=== PATIENT | male | born 1960 | race Caucasian/White ===

== ENCOUNTER → 2017-12-06 07:02 | Outpatient (CLI) | payer MEDICAID, SELFPAY ==
--- NOTE | 2017-12-06 10:21 | NEURO ---
NCS and/or EMG Patient Report Ordering Doctor: Bandar Haas DATE OF SERVICE: 12/06/17 This is a bilateral upper extremity nerve conduction study and a left upper extremity EMG performed on this 57-year-old male with numbness in his hands worse on the right side present for a year. The patient is a diabetic, his most recent hemoglobin A1c is 7.1 he says it is did run higher in the 11-12 range for several years. Reports a chronic right ulnar neuropathy due to an injury at the elbow. right lateral upper extremity nerve conduction study is performed demonstrating absence of the bilateral ulnar sensory responses, right ulnar Latuda and velocity as well as latency becomes severely abnormal across the elbow however this appears to be consistent with his old injury. On the left side there is mild decrease in conduction velocity across the elbow with preservation of amplitude but prolongation of distal latency. In motor and sensory responses are also abnormal bilaterally with moderately prolonged distal latencies and mild slowing of conduction velocities. The radial sensory responses are normal. The median and ulnar f wave responses are prolonged bilaterally. Left upper extremity EMG is performed. Muscles evaluated included the abductor pollicis brevis, first dorsal interosseous, brachioradialis, biceps, triceps, and deltoid muscles. Distal muscles demonstrated large motor units with early recruitment. More proximal muscles were normal. Pathologic spontaneous activity and abnormal insertional activity was absent. Impression this is an abnormal electrophysiologic study of the bilateral upper extremities consistent with both a moderate median neuropathy at the wrists, and bilateral ulnar neuropathy at the elbow, mild on the left, severe on the right however on the right side this appears to be chronic due to his remote injury. There is a superimposed length dependent peripheral neuropathy as well.
== END ==
PROVIDERS: Family Provider Nurse Practitioner; PCP Nurse Practitioner; Visit Provider Psychiatry & Neurology Neurology
DX: G62.9 Polyneuropathy, unspecified (principal); R20.0 Anesthesia of skin; R20.2 Paresthesia of skin
CPT/HCPCS: 95886; 95911

== ENCOUNTER → 2017-12-19 07:31 | Outpatient (CLI) | payer MEDICAID, SELFPAY ==
--- NOTE | 2017-12-19 10:31 | NEURO ---
NCS and/or EMG Patient Report Ordering Doctor: Bandar Haas DATE OF SERVICE: 12/19/17 this is a bilateral right lower extremity nerve conduction study performed for evaluation of bilateral lower extremity paresthesias in this 57 yr old male with a history of diabetes Right lower extremity nerve conduction studies performed as well as left lower extremity nerve conduction study. The sural sensory responses bilaterally are unobtainable. The motor responses from the bilateral common peroneal and tibial motor nerves demonstrate prolonged latencies, low amplitudes and low conduction velocities. Tibial and common peroneal F waves are prolonged and H reflex responses are reduced bilaterally. Impression this is an abnormal nerve conduction study of the bilateral lower extremities consistent with moderate to severe peripheral neuropathy.
== END ==
PROVIDERS: Family Provider Nurse Practitioner; PCP Nurse Practitioner; Visit Provider Psychiatry & Neurology Neurology
DX: G62.9 Polyneuropathy, unspecified (principal); R20.0 Anesthesia of skin; R20.2 Paresthesia of skin
CPT/HCPCS: 95910

== ENCOUNTER 2018-01-15 09:39 | Emergency (ER) | payer MEDICAID, SELFPAY ==
[2018-01-15 09:42] VITALS: BP 195/88; PULSE 74; RESP 16; TEMP 35.9; O2SAT 95; BMI 34.7
--- NOTE | 2018-01-15 09:54 | RAD_ITS ---
STUDY: X-RAY - RIGHT SHOULDER REASON FOR EXAM: Male, 58 years old. Pain after a fall TECHNIQUE: 5 view(s) of the shoulder. COMPARISON: None. FINDINGS: There is mild degenerative arthrosis of the glenohumeral articulation. There is degenerative arthrosis of the acromioclavicular joint without inferior osseous spur formation. Normal acromion. Normal humeral head and visualized proximal humerus. The soft tissue structures are unremarkable. Normal visualized pulmonary apex. RAD/Shoulder min 2 Views IMPRESSION: Degenerative arthrosis, no demonstrated fracture Electronically Signed: Mckay Cornelius MD at 10:58 EDT , Service support ,
--- NOTE | 2018-01-15 09:54 | RAD_ITS ---
STUDY: X-RAY - RIGHT KNEE REASON FOR EXAM: Male, 58 years old. Pain TECHNIQUE: 3 view(s) of the knee. COMPARISON: None. FINDINGS: The right knee has been previously replaced. Components demonstrate anatomic alignment. No plain film evidence of hardware complication or failure. No acute traumatic abnormality noted. RAD/Knee 3 Views IMPRESSION: Replaced right knee joint demonstrates anatomic alignment. No plain film evidence of hardware complication or acute traumatic abnormality Electronically Signed: Mckay Cornelius MD at 10:58 EDT , Service support ,
--- NOTE | 2018-01-15 10:14 | RAD_ITS ---
STUDY: X-RAY - RIGHT FEMUR REASON FOR STUDY: Male, 58 years old. Pain after a fall TECHNIQUE: Radiological exam, femur, minimum 2 views, 4 views obtained COMPARISON: None. FINDINGS: There is diffuse demineralization of the femur. Normal visualized soft tissue structure. Replaced right knee joint demonstrates anatomic alignment, no hardware complication. RAD/Femur Min 2 Views IMPRESSION: Demineralization of the osseous structures, no demonstrated fracture or suspicious osseous lesion. However, hip and pelvic fractures in patients of this age can be subtle, if there are strong clinical suspicion of a fracture, recommend further evaluation with cross-sectional imaging. Replaced right knee joint demonstrates anatomic alignment. No plain film evidence of hardware complication or failure Electronically Signed: Mckay Cornelius MD at 10:57 EDT , Service support ,
--- NOTE | 2018-01-15 11:11 | ED.DCSUM_ITS ---
- ER Visit Summary Date of Service: 01/15/18 Chief Complaint: [Fall] History of Present Illness: The patient is a 58 M [presents to the emergency department after sustaining a fall yesterday around 7 PM. Patient states that he was coming down the steps when he missed the step and fell to the bottom of the steps. Patient went down about 5 steps. Patient thinks his right knee twisted. Patient able to bear some weight but feels unsteady at times and feels like it is going to give out. Patient at times states the pain radiates towards his right hip. He denies any pain at the ankle. Patient denies striking his head or loss of consciousness. Patient denies any neck pain, chest pain, or abdominal pain. Patient denies any back pain. Patient does complain of some discomfort in his right shoulder as he thinks he hit his shoulder as well.] Physical Examination: [HEENT-PERRLA, EOMI. Cranial nerves II through XII grossly intact. TMs clear. Mucous membranes moist. No adenopathy. No C- spine tenderness on palpation. Cardiovascular-regular rate and rhythm without murmur or ectopy Lungs-clear to auscultation, chest wall stable without crepitus or subcu emphysema Abdomen-normoactive bowel sounds, soft, nontender, no rebound or rigidity, no peritoneal signs. Extremities-intact ?4, normal range of motion, normal pulses, atraumatic]. Right shoulder-patient has diffuse tenderness to palpation about the glenohumeral joint. He has good range of motion without deformity noted. Patient nervous intact distally. Right knee-no effusion noted. There is no ecchymosis or bruising. Ligamentous exam difficult secondary to pain. Patient does have some pain with flexion extension of the knee. Neurovascular intact distally. Test Results: [X-rays of the right shoulder obtained showed no fractures only degenerative changes. X-rays of the right knee showed no fractures and normal alignment of hardware. X-rays of the right femur show no fractures.] Emergency Department Course and Treatment: [Patient was given one [place] as well as crutches and a knee immobilizer] Treatment Plan: [Patient to follow-up with orthopedics traffic control flagger] Disposition: [Discharged home in stable condition] Impression: [Mechanical fall Contusion right shoulder Right knee sprain-possible internal derangement] This note was generated with Dragon dictation software. It may contain incorrect words, spelling, and punctuation that were not noted in review of the chart prior to signing ED Disposition - Plan for ED Patient: Chief Complaint: Fall Referrals: Nora Jack, KAYLYNN-C [Primary Care Provider] -
--- NOTE | 2018-01-15 11:11 | ED.DEP ---
ED Disposition - Plan for ED Patient: Chief Complaint: Fall Instructions: ED Mechanical Fall, ED Sprain Knee, ED Contusion Upper Ext Prescriptions: Hydrocodone Bitart/Apap 5-325 [Elizabeth 5/325] 1 - 2 tab PO Q4H PRN PRN 3 Days #12 tab PRN Reason: Pain Referrals: Nora Jack, KAYLYNN-C [Primary Care Provider] - Alfred Aguirre MD [STAFF PHYSICIAN] - 5-7 Days
--- NOTE | 2018-01-15 11:14 | DCINST.ED_ITS ---
ED Disposition - Plan for ED Patient: Chief Complaint: Fall Instructions: ED Mechanical Fall, ED Sprain Knee, ED Contusion Upper Ext Prescriptions: Hydrocodone Bitart/Apap 5-325 [Amorita 5/325] 1 - 2 tab PO Q4H PRN PRN 3 Days #12 tab PRN Reason: Pain Referrals: Nora Jack, KAYLYNN-C [Primary Care Provider] - Alfred Aguirre MD [STAFF PHYSICIAN] - 5-7 Days
[2018-01-15] MEDS: HYDROcodone Bitartrate/Apap 5/325 Tablet PO (11:28)
[2018-01-15 11:34] VITALS: BP 186/83; PULSE 66; RESP 18; O2SAT 95
== END 2018-01-15 11:35 | disposition home or self-care (01) ==
PROVIDERS: Emergency Provider Emergency Medicine; Family Provider Nurse Practitioner; PCP Nurse Practitioner
DX: S40.011A Contusion of right shoulder, initial encounter (principal); S83.91XA Sprain of unspecified site of right knee, initial encounter; W10.9XXA Fall (on) (from) unspecified stairs and steps, initial encounter; Y93.9 Activity, unspecified; Y92.89 Other specified places as the place of occurrence of the external cause; Y99.9 Unspecified external cause status; J44.9 Chronic obstructive pulmonary disease, unspecified; E11.9 Type 2 diabetes mellitus without complications; Z72.0 Tobacco use; Z86.718 Personal history of other venous thrombosis and embolism
CPT/HCPCS: 73030; 73552; 73562; 99284

== ENCOUNTER → 2018-04-14 15:27 | Outpatient (CLI) | payer MEDICAID, SELFPAY ==
[2018-04-14 15:49] LABS: Absolute Lymphocyte Count 2.89 X10^3/ul (0.83-4.51); Absolute Neutrophil Count 4.8 X10^3/uL (2.0-7.7); Basophil# 0.05 X10^3/uL; Basophil% 0.6 % (0-1); Eosinophil# 0.28 X10^3/uL; Eosinophils% 3.2 % (0-5); Hematocrit 45.7 % (40-54); Hemoglobin 15.5 g/dl (13.0-16.5); Lymphocyte # 2.89 X10^3/ul (4.0); Lymphocyte % 33.1 % (19-41); Mean Corp Hgb Conc 33.9 g/gl (32-36); Mean Corpuscular Hgb 30.2 pg (27.0-32.0); Mean Corpuscular Volume 89.1 fL (80-94); Mean Platelet Vol. 11.4 fl (6.2-12.0); Monocyte# 0.65 X10^3/uL; Monocyte% 7.5 % (0-10); Neutrophil # 4.76 X10^3/uL (2.7-7.7); Neutrophil % 54.6 % (47-70); Platelet Count 234 K/mm3 (150-450); RBC Distribution Width CV 14.7 % (11.6-14.6); RBC Distribution Width SD 47.8 fl (35.1-43.9); Red Blood Count 5.13 M/mm3 (4.6-6.2); White Blood Count 8.7 K/mm3 (4.4-11.0)
[2018-04-14 15:57] LABS: POSITIVE COUNT NO; POSITIVE DIFFERENTIAL NO; POSITIVE MORPHOLOGY NO
[2018-04-14 16:12] LABS: PSA,Total- Diagnostic 0.15 ng/mL (0.0-4.0)
== END ==
PROVIDERS: Family Provider Nurse Practitioner; PCP Nurse Practitioner; Visit Provider Nurse Practitioner
DX: E29.1 Testicular hypofunction (principal)
CPT/HCPCS: 84153; 84403; 85025

== ENCOUNTER → 2018-07-14 15:02 | Outpatient (CLI) | payer MEDICAID, SELFPAY ==
[2018-07-14 15:16] LABS: Absolute Neutrophil Count 4.5 X10^3/uL (2.0-7.7); Basophil# 0.06 X10^3/uL; Basophil% 0.6 % (0-1); Eosinophil# 0.49 X10^3/uL; Eosinophils% 4.5 % (0-5); Hematocrit 46.1 % (40-54); Hemoglobin 15.8 g/dl (13.0-16.5); Lymphocyte % 44.1 % (19-41); Mean Corp Hgb Conc 34.3 g/gl (32-36); Mean Corpuscular Hgb 30.8 pg (27.0-32.0); Mean Corpuscular Volume 89.9 fL (80-94); Mean Platelet Vol. 11.9 fl (6.2-12.0); Monocyte# 0.92 X10^3/uL; Monocyte% 8.5 % (0-10); Neutrophil # 4.46 X10^3/uL (2.7-7.7); Neutrophil % 40.9 % (47-70); Platelet Count 232 K/mm3 (150-450); RBC Distribution Width CV 13.7 % (11.6-14.6); RBC Distribution Width SD 44.6 fl (35.1-43.9); Red Blood Count 5.13 M/mm3 (4.6-6.2); White Blood Count 10.9 K/mm3 (4.4-11.0)
[2018-07-14 15:17] LABS: POSITIVE COUNT NO; POSITIVE DIFFERENTIAL NO; POSITIVE MORPHOLOGY NO
[2018-07-14 15:26] LABS: PSA,Total - Annual Screen 0.16 ng/mL (0.00-4.00)
== END ==
PROVIDERS: Family Provider Nurse Practitioner; PCP Nurse Practitioner; Referring Provider Nurse Practitioner; Visit Provider Nurse Practitioner
DX: E29.1 Testicular hypofunction (principal)
CPT/HCPCS: 84153; 84403; 85025; G0103

== ENCOUNTER → 2018-11-27 21:23 | Outpatient (CLI) | payer MEDICAID, SELFPAY ==
[2018-11-27 16:58] VITALS: BMI 34.6
[2018-11-27 22:06] LABS: Absolute Neutrophil Count 3.7 X10^3/uL (2.0-7.7); Basophil# 0.05 X10^3/uL; Basophil% 0.6 % (0-1); Eosinophil# 0.36 X10^3/uL; Eosinophils% 4.3 % (0-5); Hematocrit 45.8 % (40-54); Hemoglobin 15.2 g/dl (13.0-16.5); Lymphocyte % 39.8 % (19-41); Mean Corp Hgb Conc 33.2 g/gl (32-36); Mean Corpuscular Hgb 29.7 pg (27.0-32.0); Mean Corpuscular Volume 89.6 fL (80-94); Mean Platelet Vol. 11.7 fl (6.2-12.0); Monocyte# 0.75 X10^3/uL; Neutrophil # 3.74 X10^3/uL (2.7-7.7); Neutrophil % 45.2 % (47-70); POSITIVE COUNT NO; POSITIVE DIFFERENTIAL NO; POSITIVE MORPHOLOGY NO; Platelet Count 240 K/mm3 (150-450); RBC Distribution Width CV 13.7 % (11.6-14.6); RBC Distribution Width SD 44.8 fl (35.1-43.9); Red Blood Count 5.11 M/mm3 (4.6-6.2); White Blood Count 8.3 K/mm3 (4.4-11.0)
== END ==
PROVIDERS: Family Provider Nurse Practitioner; PCP Nurse Practitioner; Visit Provider Nurse Practitioner
DX: E11.65 Type 2 diabetes mellitus with hyperglycemia (principal); R35.0 Frequency of micturition
CPT/HCPCS: 85025

== ENCOUNTER → 2018-12-22 21:13 | Outpatient (CLI) | payer MEDICAID, SELFPAY ==
[2018-12-13 18:57] VITALS: BMI 35.2
[2018-12-22 21:22] LABS: Absolute Lymphocyte Count 4.82 X10^3/ul (0.83-4.51); Absolute Neutrophil Count 5.2 X10^3/uL (2.0-7.7); Basophil# 0.05 X10^3/uL; Basophil% 0.4 % (0-1); Eosinophil# 0.33 X10^3/uL; Eosinophils% 2.9 % (0-5); Hematocrit 46.7 % (40-54); Hemoglobin 15.6 g/dl (13.0-16.5); Lymphocyte # 4.82 X10^3/ul (4.0); Lymphocyte % 42.2 % (19-41); Mean Corp Hgb Conc 33.4 g/gl (32-36); Mean Corpuscular Hgb 30.1 pg (27.0-32.0); Mean Platelet Vol. 12.9 fl (6.2-12.0); Monocyte# 0.91 X10^3/uL; Neutrophil # 5.21 X10^3/uL (2.7-7.7); Neutrophil % 45.5 % (47-70); Platelet Count 207 K/mm3 (150-450); RBC Distribution Width CV 13.9 % (11.6-14.6); RBC Distribution Width SD 45.2 fl (35.1-43.9); Red Blood Count 5.19 M/mm3 (4.6-6.2); White Blood Count 11.4 K/mm3 (4.4-11.0)
[2018-12-22 21:27] LABS: POSITIVE COUNT NO; POSITIVE DIFFERENTIAL NO; POSITIVE MORPHOLOGY NO
[2018-12-22 21:37] LABS: PSA,Total- Diagnostic 0.21 ng/mL (0.0-4.0)
[2018-12-26 11:23] LABS: Testosterone Free 7.8 pg/mL (7.2-24.0)
== END ==
PROVIDERS: Family Provider Nurse Practitioner; PCP Nurse Practitioner; Referring Provider Nurse Practitioner; Visit Provider Nurse Practitioner
DX: E29.1 Testicular hypofunction (principal)
CPT/HCPCS: 84153; 84402; 85025

== ENCOUNTER 2019-03-07 02:54 | Emergency (ER) | payer MEDICAID, SELFPAY ==
[2019-02-25 17:52] VITALS: BMI 35.9
[2019-03-07 02:57] VITALS: BP 151/88; PULSE 73; RESP 16; TEMP 37; O2SAT 97; BMI 34.9
[2019-03-07 03:04] VITALS: BP 147/71
--- NOTE | 2019-03-07 03:11 | ED.VIS.GEN ---
History of Present Illness Chief Complaint: Wound Informant: Patient Narrative: Patient stated he has had some dry skin on his right blackwell and a chronic wound is well on his blackwell. It cracked open today. There is been some clear drainage. He has peripheral vascular disease peripheral neuropathy secondary to diabetes. He stated that the skin underneath that exposes burning. Comes in for cleaning of his wound. He is been using triple antibiotic ointment today. Has had a remote DVT. This region is on his blackwell however. Current severity is mild. No surrounding wound redness. No fevers or chills. - Past Medical History (1) Arthritis Status: Acute (2) Erectile dysfunction Status: Acute (3) Knee pain, left Status: Acute (4) Low testosterone in male Status: Acute (5) Osteoarthrosis, localized, primary, knee Status: Acute (6) Penetrating wound of left foot Status: Acute (7) Diabetes type 2, uncontrolled Status: Chronic (8) PAD (peripheral artery disease) Status: Chronic (9) Peripheral neuropathy Status: Chronic Past Medical History - Allergies and Home Meds Allergies/Adverse Reactions: Allergies canagliflozin [From Invokana] Allergy (Severe, Verified 03/07/19 02:59) FLU SYMPTOMS heparin Allergy (Verified 03/07/19 02:59) Unknown Primary Care Physician: Nora Jack NP-C [Primary Care Provider] - Prior records reviewed: Yes Surgical History: total knee arthroplasty Smoking Status: Current every day smoker Alcohol: None Drugs: None Review of Systems General: Denies: Chills, Fever, Sweats Eyes: Denies: Visual changes - bilaterally, Diplopia ENT: Denies: Rhinorrhea, Sore throat Cardiovascular: Denies: Chest pain, Palpitations Respiratory: Denies: Dyspnea, Cough, Dyspnea on exertion Gastrointestinal: Denies: Abdominal pain, Nausea, Vomiting, Diarrhea, Melena, Hematochezia Genitourinary: Denies: Dysuria, Hematuria, Frequency Musculoskeletal: Denies: Back pain, Extremity Pain Skin: Reports: Wounds - See HPI Neurological: Denies: Headache, Weakness, Numbness Physical Exam Vital Signs/Narrative: Vital Signs Temp Pulse Resp BP Pulse Ox 03/07/19 03:04 147/71 H 03/07/19 02:57 98.6 F 73 16 151/88 H 97 General: Well nourished, Well developed, No Acute Distress Head: Normocephalic, Atraumatic Eyes: Perrl, EOMI ENT: Moist mucous membranes, No rhinorrhea Neck: Supple, Nontender Cardiovascular: Regular rate, Regular rhythm, No murmurs Respiratory: No distress, CTA bilaterally, Chest nontender Abdomen: Soft, Nontender, Nondistended, Normal bowel sounds Back: Nontender, Normal Inspection Extremities: Nontender, No edema Skin: - - Patient has dry skin was peripheral distal blackwell. It is cracked open in a baseball sized fashion. He has multiple cracks that looks similar to a spiders web. There is no infection. There is no drainage. There is no cellulitis. He has a proximal dime sized wound which he stated he has had for years. He recently picked the scab off. There is mild irritation without infection or drainage.. Negative for: Normal color, No rash Neurological: Alert, Oriented x3, Cranial nerves II-XII grossly intact, Normal Strength, Normal Sensation Psychological: Normal affect, Normal Mood Diagnostic/Tx/Re-eval - Medical Decision Making Reassured. At this time there is no evidence of infection. They will continue triple antibiotic ointment. We did cleanse and dress the wound. I do not think he needs antibiotics. I do think he will likely need wound care and he is going to call them tomorrow for an appointment as he has peripheral vascular disease and I think that is why this opened up in the first place. ED Disposition - Plan for ED Patient: Disposition: Home or Assisted Living Diagnosis: Skin tear Instructions: Wound Care Referrals: Nora Jack NP-C [Primary Care Provider] - Additional Instructions: Please follow-up with the wound clinic
[2019-03-07 03:37] VITALS: BP 146/60; PULSE 78; RESP 18; O2SAT 98
== END 2019-03-07 03:38 | disposition home or self-care (01) ==
PROVIDERS: Emergency Provider Emergency Medicine; Family Provider Nurse Practitioner; PCP Nurse Practitioner
DX: S81.801A Unspecified open wound, right lower leg, initial encounter (principal); X58.XXXA Exposure to other specified factors, initial encounter; Y93.89 Activity, other specified; Y92.9 Unspecified place or not applicable; Y99.9 Unspecified external cause status; E11.51 Type 2 diabetes mellitus with diabetic peripheral angiopathy without gangrene; I73.9 Peripheral vascular disease, unspecified; Z88.8 Allergy status to other drugs, medicaments and biological substances; F17.200 Nicotine dependence, unspecified, uncomplicated
CPT/HCPCS: 99282

== ENCOUNTER → 2019-03-23 10:06 | Outpatient (CLI) | payer MEDICAID, SELFPAY ==
[2019-03-07 02:57] VITALS: BMI 34.9
[2019-03-23 10:37] LABS: Absolute Neutrophil Count 3.7 X10^3/uL (2.0-7.7); Basophil# 0.04 X10^3/uL; Basophil% 0.5 % (0-1); Eosinophil# 0.32 X10^3/uL; Eosinophils% 4.3 % (0-5); Hematocrit 45.6 % (40-54); Hemoglobin 15.4 g/dl (13.0-16.5); Lymphocyte % 36.1 % (19-41); Mean Corp Hgb Conc 33.8 g/gl (32-36); Mean Corpuscular Hgb 30.4 pg (27.0-32.0); Mean Corpuscular Volume 89.9 fL (80-94); Mean Platelet Vol. 11.4 fl (6.2-12.0); Monocyte# 0.59 X10^3/uL; Monocyte% 7.9 % (0-10); Neutrophil # 3.69 X10^3/uL (2.7-7.7); Neutrophil % 49.5 % (47-70); Platelet Count 215 K/mm3 (150-450); RBC Distribution Width CV 14.2 % (11.6-14.6); Red Blood Count 5.07 M/mm3 (4.6-6.2); White Blood Count 7.5 K/mm3 (4.4-11.0)
[2019-03-23 10:39] LABS: POSITIVE COUNT NO; POSITIVE DIFFERENTIAL NO; POSITIVE MORPHOLOGY NO
[2019-03-23 11:04] LABS: PSA,Total- Diagnostic 0.21 ng/mL (0.0-4.0)
[2019-03-25 12:51] LABS: Testosterone Free 15.2 pg/mL (7.2-24.0)
== END ==
PROVIDERS: Family Provider Nurse Practitioner; PCP Nurse Practitioner; Referring Provider Nurse Practitioner; Visit Provider Nurse Practitioner
DX: E29.1 Testicular hypofunction (principal)
CPT/HCPCS: 36415; 84153; 84402; 85025

== ENCOUNTER → 2019-08-23 09:24 | Outpatient (CLI) | payer MEDICAID, SELFPAY ==
[2019-08-12 21:47] VITALS: BMI 35.8
[2019-08-23 10:40] LABS: Hemoglobin A1c 8.6 % (4.2-6.3)
[2019-08-23 10:47] LABS: AST(SGOT) 13 U/L (15-37); Alanine Aminotransfer ALT/SGPT 36 U/L (16-61); Albumin, Serum 3.7 g/dL (3.2-5.0); Alkaline Phosphatase 91 U/L (45-117); Anion Gap 8 (5-15); BUN 13 mg/dL (7-18); BUN/Creat Ratio 15.2 RATIO (10-20); Chloride 106 mmol/L (98-107); Cholesterol 141 mg/dL (200); Creatinine, Serum 0.85 mg/dL (0.70-1.30); EST Glomerular Filtration Rate 98 mL/min (>60); Est Glom Filt Rate - Afr Amer 118 mL/min (>60); Globulin 3.7 g/dL (2.2-4.2); Glucose 183 mg/dL (74-106); High Density Lipoprotein 35 mg/dL; PSA,Total - Annual Screen 0.14 ng/mL (0.00-4.00); Potassium 4.1 mmol/L (3.5-5.1); Protein, Total 7.4 g/dL (6.4-8.2); Sodium Level 139 mmol/L (136-145); Triglycerides 150 mg/dL; Very Low Density Lipoprotein 30 mg/dL (5-40)
== END ==
PROVIDERS: Family Provider Nurse Practitioner; PCP Nurse Practitioner; Referring Provider Nurse Practitioner; Visit Provider Nurse Practitioner
DX: E11.65 Type 2 diabetes mellitus with hyperglycemia (principal); N52.9 Male erectile dysfunction, unspecified; Z12.5 Encounter for screening for malignant neoplasm of prostate
CPT/HCPCS: 36415; 80053; 80061; 83036; 84153; G0103

== ENCOUNTER → 2020-03-05 20:15 | Outpatient (CLI) | payer MEDICAID, SELFPAY ==
[2020-03-05 16:23] VITALS: BMI 36.8
== END ==
PROVIDERS: PCP Nurse Practitioner; Visit Provider Nurse Practitioner
DX: E11.621 Type 2 diabetes mellitus with foot ulcer (principal); L97.519 Non-pressure chronic ulcer of other part of right foot with unspecified severity
CPT/HCPCS: 87070; 87075; 87077; 87186; 87205

== ENCOUNTER 2020-04-18 02:44 | Observation (INO) | payer MEDICAID, SELFPAY ==
[2020-03-12 15:20] VITALS: BMI 37.0
[2020-04-18] VITALS (14 sets, daily range): BP systolic 99–187; BP diastolic 53–91; PULSE 55–78; RESP 15–19; TEMP 36.3–37.1; O2SAT 94–99; BMI 36.6; BMI 36.1
--- NOTE | 2020-04-18 02:54 | RAD_ITS ---
STUDY: X-RAY CHEST REASON FOR EXAM: Male, 60 years old. Shortness of breath TECHNIQUE: Single AP portable view of the chest. COMPARISON: None. FINDINGS: Patchy airspace infiltration at bilateral lung bases, left greater than right. No pleural effusion or pneumothorax. Normal size heart. Normal mediastinum and clyde. Normal visualized pulmonary arteries. Normal visualized aortic arch and descending thoracic aorta. Normal visualized thoracic spine. Normal visualized ribs, clavicles, and shoulders. There is no demonstrated abnormality of the visualized soft tissue structures of the upper abdomen. RAD/Chest 1 View (Portable) IMPRESSION: Bibasilar atelectasis versus infiltrate, left greater than right. Electronically Signed: Zaid Vásquez MD at 4:13 EDT Tel , Service support ,
--- NOTE | 2020-04-18 02:54 | EKG12_ITS ---
Test Reason : ADMISSION EKG Blood Pressure : / mmHG Vent. Rate : 064 BPM Atrial Rate : 064 BPM P-R Int : 236 ms QRS Dur : 096 ms QT Int : 380 ms P-R-T Axes : 037 -15 028 degrees QTc Int : 392 ms Sinus rhythm with 1st degree A-V block Inferior infarct , age undetermined Abnormal ECG When compared with ECG of 18-APR-2020 02:58, MANUAL COMPARISON REQUIRED, DATA IS UNCONFIRMED Confirmed by VIVIAN OCHOA, JEFE ([id number]), script editor KIKI PERALTA ([id number]) on 04/23/2020 3:59:19 PM Referred By: DR LANE Confirmed By:JEFE PARK MD
--- NOTE | 2020-04-18 02:55 | CT_ITS ---
STUDY: CTA CHEST REASON FOR EXAM: Male, 60 years old. Chest tightness RADIATION DOSAGE (If Supplied By Facility): CTDIvol = ( 13.85 ) mGy, DLP = ( 554.50 ) mGycm TECHNIQUE: The examination was performed with the intravenous administration of Isovue 370 100ml. Post-processing of the angiographic images was performed, with multiplanar reformation and 3D reconstruction. Individualized dose optimization techniques were used for this CT. COMPARISON: None FINDINGS: Normal enhancement of the main pulmonary artery and right and left pulmonary arteries. Normal enhancement of the bilateral peripheral pulmonary arteries. There is no demonstrated pulmonary embolism. Thoracic aorta demonstrates no aneurysmal dilatation or dissection. Normal heart and pericardium. Normal mediastinum. Normal hilar regions. Normal visualized trachea and bronchi. The lungs are well expanded. No confluent airspace infiltrate. 6 mm pleural-based nodule within the superior segment right lower lobe abutting the major fissure. Minimal dependent atelectasis versus scar formation at bilateral posterior lung bases. No pleural effusion or pneumothorax. Normal chest wall structures. Mild multilevel degenerative change of the spine. The visualized portions of the upper abdomen demonstrate hypoattenuated lesion within the left upper renal pole measuring near water density. CT/CTA Chest W/WO Contrast IMPRESSION: 1. No acute pulmonary embolism. 2. 6 mm pleural-based nodule within the superior segment right lower lobe. 3. Simple appearing left upper renal pole cyst. Electronically Signed: Zaid Vásquez MD at 4:52 EDT Tel , Service support ,
--- NOTE | 2020-04-18 02:56 | RAD_ITS ---
STUDY: X-RAY - RIGHT FOOT CLINICAL: Male, 60 years old. Plantar ulcer of the right foot TECHNIQUE: 3 view(s) of the foot. COMPARISON: None. FINDINGS: There is a small plantar calcaneal spur. Senescent change of the calcaneal tendon insertion. Mild degenerative change of the subtalar, talonavicular and tarsometatarsal joints. Normal metatarsi. Mild degenerative change of the first metatarsophalangeal joint. Normal tibial and fibular sesamoid bones. Normal interphalangeal joint of the great toe. Normal phalanges of the great toe. Normal second through fifth metatarsophalangeal joints. Normal interphalangeal joints and phalanges of the lesser toes. Soft tissue ulceration overlying the plantar aspect. No adjacent bony decortication RAD/Foot min 3 Views IMPRESSION: 1. Soft tissue ulceration overlying the right aspect of the metatarsal heads with bony abnormality 2. Multifocal osteoarthritic change Electronically Signed: Zaid Vásquez MD at 4:12 EDT Tel , Service support ,
--- NOTE | 2020-04-18 02:57 | ED.DCSUM_ITS ---
History of Present Illness Chief Complaint: Edema Informant: Patient Narrative: Patient presents with lower extremity edema and redness as well as chest tightness. The lower extremity has been infected for over a month he has been on antibiotics but now it is getting more swollen and more red. He has no fever or chills. He does have 2 ulcers on his foot. The chest pain and tightness started tonight, he is not anticoagulated but has had a history of PE in the past. He has no radiation of the pain he has no back pain or tearing sensation he has no pleuritic component. Past Medical History - Allergies and Home Meds Allergies/Adverse Reactions: Allergies canagliflozin [From Invokana] Allergy (Severe, Verified 04/18/20 02:52) FLU SYMPTOMS heparin Allergy (Verified 04/18/20 02:52) Unknown Primary Care Physician: Nora Jack NP-C [Primary Care Provider] - Past Medical History: - - History of hypertension, diabetes, history of PE Surgical History: total knee arthroplasty Smoking Status: Current every day smoker Review of Systems All systems negative except as indicated General: Denies: Fever Eyes: Denies: Visual changes - bilaterally ENT: Denies: Rhinorrhea, Sore throat Cardiovascular: Reports: Chest pain. Denies: Palpitations Respiratory: Reports: Dyspnea. Denies: Cough, Sputum Gastrointestinal: Denies: Abdominal pain, Nausea, Vomiting Genitourinary: Denies: Dysuria Musculoskeletal: Reports: - - Lower extremity infection Skin: Reports: Rash, Wounds Neurological: Denies: Weakness, Parasthesia Endocrine: Denies: Polyuria, Polydipsia Hematologic: Denies: Easy bruising Allergy: Denies: Uticaria Physical Exam Vital Signs/Narrative: Vital Signs Temp Pulse Resp BP Pulse Ox 04/18/20 02:54 98.7 F 78 19 H 187/75 H 99 04/18/20 02:46 98.3 F 77 16 187/75 H 99 General: Well nourished, Well developed Eyes: Perrl ENT: Moist mucous membranes, No rhinorrhea Neck: Supple, Nontender Cardiovascular: Regular rate, Regular rhythm Respiratory: - - He is speaking in full sentences he has no respiratory distress he has coarse bilateral breath sounds. Abdomen: Soft, Nontender Back: Nontender, Normal Inspection Extremities: - - He does have right lower extremity edema, he has a wound ulcer in his great toe and plantar region, no crepitus, he has slight erythema and slight calor. Skin: - - Cellulitis as above Neurological: Normal Strength, Normal Sensation Diagnostic/Tx/Re-eval - Medical Decision Making Patient has no evidence of PE however he will need repeat cardiac enzymes and further investigation into his chest pain, he also has right lower extremity cellulitis with a quite elevated CRP and I am worried about early osteomyelitis. I started antibiotics. Patient will need admission. ED Disposition - Plan for ED Patient: Diagnosis: Foot infection, Chest pain Referrals: Nora Jack, [employer] OWNER-C [Primary Care Provider] -
[2020-04-18 03:45] LABS: ALB/GLOB Ratio 0.8 RATIO (0.9-2.4); AST(SGOT) 12 U/L (15-37); Alanine Aminotransfer ALT/SGPT 28 U/L (16-61); Albumin, Serum 3.5 g/dL (3.2-5.0); Alkaline Phosphatase 88 U/L (45-117); Anion Gap 2 (5-15); BUN 13 mg/dL (7-18); Calcium,Total 8.4 mg/dL (8.5-10.1); Chloride 104 mmol/L (98-107); Creatinine, Serum 0.87 mg/dL (0.70-1.30); EST Glomerular Filtration Rate 95 mL/min (>60); Est Glom Filt Rate - Afr Amer 116 mL/min (>60); Estimated Creatinine Clearance 107.92 ml/min; Globulin 4.4 g/dL (2.2-4.2); Glucose 144 mg/dL (74-106); Potassium 3.6 mmol/L (3.5-5.1); Protein, Total 7.9 g/dL (6.4-8.2); Sodium Level 136 mmol/L (136-145)
[2020-04-18 03:50] LABS: Absolute Lymphocyte Count 3.54 X10^3/uL (0.83-4.51); Absolute Neutrophil Count 5.9 X10^3/uL (2.0-7.7); Basophil# 0.07 X10^3/uL; Basophil% 0.6 % (0-1); Eosinophil# 0.36 X10^3/uL; Eosinophils% 3.3 % (0-5); Hematocrit 43.7 % (40-54); Hemoglobin 14.3 g/dL (13.0-16.5); Lymphocyte # 3.54 X10^3/ul (4.0); Lymphocyte % 32.3 % (19-41); Mean Corp Hgb Conc 32.7 g/dL (32-36); Mean Corpuscular Hgb 29.9 pg (27.0-32.0); Mean Corpuscular Volume 91.4 fL (80-94); Mean Platelet Vol. 11.1 fl (6.2-12.0); Monocyte# 0.93 X10^3/uL; Monocyte% 8.5 % (0-10); NRBC Flagged by Analyzer 0 % (0-5); Neutrophil # 5.91 X10^3/uL (2.7-7.7); Neutrophil % 53.8 % (47-70); Platelet Count 231 K/mm3 (150-450); RBC Distribution Width CV 13.5 % (11.6-14.6); RBC Distribution Width SD 46.2 fl (35.1-43.9); Red Blood Count 4.78 M/mm3 (4.6-6.2)
[2020-04-18 03:57] LABS: Erythrocyte Sedimentation Rate 22 mm/hr (0-20)
[2020-04-18 04:37] LABS: Probe Check PASS; Specimen Processing Control PASS
--- NOTE | 2020-04-18 05:04 | HP.PCM_ITS ---
History of Present Illness Date of Admission: 04/18/20 Chief Complaint: chest pain, left leg pain and swelling The patient is a 60 year old M with a past medical history as outlined which includes type 2 diabetes mellitus, hyperlipidemia and a history of PE after right knee surgery in 2004 as well as arthritis and COPD. He was admitted through the ED on 04/18/2020 with a complaint of chest pain and left lower extremity redness and pain and swelling. Chest pain started 1 night before admission he said he was pressure-like like someone sitting on his chest, with no aggravating or relieving factors. He had not had chest pain like this before. He denied any associated lightheadedness or dizziness, palpitations or shortness of breath. Review of systems otherwise negative. He also said he had been managed for cellulitis of his left lower extremity with oral antibiotics on outpatient basis after he picked at a callus on his foot and it became infected. He has neuropathy due to type 2 diabetes mellitus and states he does not feel anything when he picks at his leg. He completed a one-week course of antibiotics and says he is yet to follow-up with his doctor at the wound clinic. He was able to start his leg is still swollen and red and painful. He denied any fever or chills. Review of systems otherwise negative. In the ED, vitals showed temperature of 98.8 Fahrenheit with blood pressure of 120/62, pulse rate of 61 and respiratory rate of 17. He was saturating at 98% on room air. Chemi stry showed sodium of 136 with potassium of 3.6, and creatinine of 0.87. Initial troponin was negative. CBC showed hemoglobin of 14.3 with WBC of 11 and platelets of 231. COVID-19 test was negative and CTA of the chest showed no acute PE but showed a 6 mm pleural-based nodule within the superior segment of the right lower lobe as well as simple appearing left upper renal pole cyst. Chest x-ray showed bibasilar atelectasis versus infiltrate greater on the left than the right. Foot x-ray showed soft tissue ulceration overlying the right aspect of the metatarsal heads with bony abnormality and multifocal osteoarthritic change. He has been admitted to be managed for chest pain rule out ACS and cellulitis of the left lower extremity [] Past Medical History Past Medical History (Chronic Problems): Chronic Problems (Last Reviewed 05/19/20 @ 18:20 by Nora Jack NP-C) PAD (peripheral artery disease) (Chronic) Peripheral neuropathy (Chronic) Diabetes type 2, uncontrolled (Chronic) Medical History: Medical History (Last Reviewed 02/04/20 @ 18:20 by Nora Jack NP-Nancy) Arthritis of left shoulder region M19.012 COPD (chronic obstructive pulmonary disease) J44.9 Diabetes type 2, uncontrolled E11.65 Hyperlipidemia LDL goal <130 E78.5 Osteoarthritis of left knee M17.12 Pulmonary embolism I26.99 after R knee surgery Allergies canagliflozin [From Invokana] Allergy (Severe, Verified 04/18/20 02:52) FLU SYMPTOMS heparin Allergy (Verified 04/18/20 02:52) Unknown Home Medications: Ambulatory Orders Medication Instructions Recorded gabapentin 800 mg tablet 800 mg PO BID 30 Days #60 tab 10/21/19 insulin glargine 100 unit/mL (3 65 unit SC DAILY 30 Days #19.5 ml 10/21/19 mL) subcutaneous pen metformin 1,000 mg tablet 1,000 mg PO BID #60 tab 10/21/19 tramadol 50 mg tablet 100 mg PO Q8H PRN #180 tab 11/20/19 pen needle, diabetic 32 gauge x See Rx Instructions .ROUTE 02/04/20 5/32 .MEDSUPPLY #90 ea pioglitazone 45 mg tablet 45 mg PO DAILY #30 tab 02/04/20 Surgical History: Surgical History (Last Reviewed 08/12/19 @ 21:51 by VICTORIA Vargas) Knee arthropathy M17.10 R elbow nerves cut happened 21 years ago and R little finger is numb Status post right knee replacement Z96.651 Surgical History: total knee arthroplasty Smoking Status: Current every day smoker Review of Systems Constitutional: Denies: Chills, Fever, Malaise, Weight Change Eyes: Denies: Blurred vision HEENT: Denies: Head Aches, Sinus Congestion, Sinus Drainage Cardiovascular: Reports: Chest Pain, Chest Pressure. Denies: Chest Tightness, Edema, Heaviness, Light Headedness, Orthopnea, Palpitations, Paroxysmal Noc. Dyspnea, Syncope Respiratory: Reports: Shortness of Breath. Denies: Cough, Shortness of breath at rest, Shortness of breath upon exertion, Sputum production Gastrointestinal: Denies: Abdominal Pain, Nausea, Vomiting Genitourinary: Denies: Dysuria Musculoskeletal: Reports: Leg Pain. Denies: Joint Pain, Joint Tenderness Skin: Reports: Wounds. Denies: Rash Neurological: Denies: Numbness, Tingling, Focal weakness Psychiatric: Denies: Anxiety, Depression, Homicidal Ideations, Suicidal Ideations Hematologic/ Lymphatic: Denies: Easy Bruising, Easy Bleeding VTE Information - Inpt Only VTE Present on Admission: No VTE Pharm Prophylaxis ordered?: Yes Patient Problems: Active and Suspected Problems (Last Reviewed 02/04/20 @ 18:20 by VICTORIA Vargas) Foot infection (Acute) Chest pain (Acute) - Physical Exam Vitals/I&O's: Vital Signs Temp Pulse Resp BP Pulse Ox 98.6 F 66 16 167/63 H 97 04/18/20 04:00 04/18/20 04:00 04/18/20 04:00 04/18/20 04:00 04/18/20 04:00 Oxygen Delivery Method Room Air Weight: 293 lb 6.964 oz Body Mass Index (BMI) 36.6 General: Alert, Oriented x3, Cooperative, No apparent distress HEENT: Atraumatic, PERRLA, EOMI, Normocephalic Oral: Moist Mucosa Neck: Supple, No JVD, Negative Carotid Bruits Lungs: Clear to auscultation, Normal air movement, No rhonchi, No wheeze, No rales Cardiovascular: Regular rate, Regular Rhythm, Normal S1, Normal S2, No murmurs Abdomen: Bowel Sounds Present, Soft, Non Tender, Non-Distended, No Hepato- splenomegaly Extremities: No clubbing, No cyanosis, Capillary Refill Less than 3 Seconds, - - minimal 1+ edema of LLE Skin: - - has mild erythema and differential warmth of LLE, with ulceration of the base of the first metatarsal, and over the lateral aspect of foot; no visible discharge. Musculoskeletal: No Tenderness to Palpation of Joints or Extremities Lymphatic: No Cervical, Supraclavicular, or Inguinal Adenopathy Neurological: Cranial nerves II-XII grossly intact, Neuro grossly intact, Motor Exam 5/5 strength throughout Psych/Mental Status: Normal Affect, Appropriate, Alert and oriented to time, place, person, mood and affect Laboratory Results 04/18/20 03:05: WBC 11.0, RBC 4.78, Hgb 14.3, Hct 43.7, MCV 91.4, MCH 29.9, MCHC 32.7, RDW Std Deviation 46.2 H, RDW Coeff of Sami 13.5, Plt Count 231, MPV 11.1, Immature Gran % (Auto) 1.500 H, Neut % (Auto) 53.8, Lymph % (Auto) 32.3, [place] % (Auto) 8.5, Eos % (Auto) 3.3, Baso % (Auto) 0.6, Absolute Neuts (auto) 5.9, Absolute Lymphs (auto) 3.54, Nucleated RBC % 0, ESR 22 H 04/18/20 03:05: Sodium 136, Potassium 3.6, Chloride 104, Carbon Dioxide 30.0, Anion Gap 2 L, BUN 13, Creatinine 0.87, Estim Creat Clear Calc 107.92, Est GFR (MDRD) Af Amer 116, Est GFR (MDRD) Non-Af 95, BUN/Creatinine Ratio 15.0, Glucose 144 H, Calcium 8.4 L, Total Bilirubin 0.30, AST 12 L, ALT 28, Alkaline Phosphatase 88, Troponin I < 0.015, C-React Prot Ext Range 17.30 H, Total Protein 7.9, Albumin 3.5, Globulin 4.4 H, Albumin/Globulin Ratio 0.8 L 04/18/20 03:06: COVID-19 (YOLANDA) Not Detected Diagnostic Data Chest X-Ray 04/18/20 02:54 IMPRESSION: Bibasilar atelectasis versus infiltrate, left greater than right. Electronically Signed: Zaid Vásquez MD at 4:13 EDT Tel , Service support , Chest CTA 04/18/20 02:55 IMPRESSION: 1. No acute pulmonary embolism. 2. 6 mm pleural-based nodule within the superior segment right lower lobe. 3. Simple appearing left upper renal pole cyst. Electronically Signed: Zaid Vásquez MD at 4:52 EDT Tel , Service support , Foot X-Ray 04/18/20 02:56 IMPRESSION: 1. Soft tissue ulceration overlying the right aspect of the metatarsal heads with bony abnormality 2. Multifocal osteoarthritic change Electronically Signed: Zaid Vásquez MD at 4:12 EDT Tel , Service support , Assessment/Plan All Active Problems (Last Reviewed 02/04/20 @ 18:20 by Nora Jack, KAYLYNN-C) Foot infection (Acute) Chest pain (Acute) Staph aureus infection (Acute) Cellulitis (Acute) Swelling of right lower extremity (Acute) Ulcer of right foot due to type 2 diabetes mellitus (Acute) Left knee pain (Acute) Wellness examination (Acute) Osteoarthritis, multiple sites (Acute) Erectile dysfunction (Acute) Low testosterone in male (Acute) Arthritis (Acute) Osteoarthrosis, localized, primary, knee (Acute) Knee pain, left (Acute) Penetrating wound of left foot (Acute) 60 y/o admitted with a complaint of chest pain, and left foot swelling, pain and redness 1. Chest pain, to r/o ACS * Admit to PCU with telemetry.\ * Initial troponin is negative. EKG shows no acute ST changes. * Cycle troponins x3. P.o. aspirin 81 mg daily. Sublingual nitroglycerin as needed. * For stress test if troponins are negative. * 2. Diabetic foot ulcer with LLE cellulitis * States he is taking antibiotics for about a week as prescribed by his PCP. * X-ray of the foot showed soft tissue ulceration overlying the right aspect of the metatarsal head with bony abnormality and multifocal osteoarthritic changes. * CBC shows WBC of 11. Consult podiatry. Patient may need MRI of the foot but will defer to podiatry. * Started on IV clindamycin in ED;. will continue * 3. Type 2 diabetes mellitus with peripheral neuropathy * On metformin thousand milligrams twice daily and p.o. glitazone 45 mg daily nad lantus 65IU daily * Insulin sliding scale. Accu-Cheks AC at bedtime. * * DVT prophylaxis: Lovenox CODE STATUS: Full code * Patient counseled extensively about different types of CODE STATUS including full code, DNR CCA and DNR CCA. Patient elects to be full code. * Total [id number] time 16 minutes. OBSV E&M: 65432 Initial observation care L3 Procedures: 90579 Advncd Care Plan 30 Min
--- NOTE | 2020-04-18 06:16 | EKG12_ITS ---
Test Reason : DYSRHYTHMIA Blood Pressure : / mmHG Vent. Rate : 074 BPM Atrial Rate : 074 BPM P-R Int : 232 ms QRS Dur : 094 ms QT Int : 368 ms P-R-T Axes : 053 -14 028 degrees QTc Int : 408 ms Sinus rhythm with 1st degree A-V block with frequent Premature ventricular complexes Inferior infarct , age undetermined Abnormal ECG Confirmed by JEFE PARK MD ([id number]), continuity editor DONN BURNS ([id number]) on 04/21/2020 8:43:19 AM Referred By: PC Confirmed By:JEFE PARK MD
[2020-04-18 06:50] LABS: Bedside Glucose 103 mg/dL (70-110)
[2020-04-18] MEDS: traMADol 50 MG Tablet 100 MG PO ×2 (06:56→20:43)
[2020-04-18] MEDS: 0.9% Saline Lock 10 ML Syringe IV ×3 (07:07→21:02)
--- NOTE | 2020-04-18 07:34 | CON.PCM_ITS ---
Problem List (1) Ulcer of right foot with fat layer exposed Status: Chronic (2) Cellulitis of right foot Status: Acute (3) Claudication Status: Suspected (4) Type 2 diabetes mellitus with diabetic polyneuropathy Status: Chronic Reason for Consult Date of Consultation: 04/18/20 Reason for Consultation: right foot ulcers with infection History of Present Illness: The patient is a 60 year old M was seen bedside this morning for right foot ulcer. He is admitted for chest pain and lower extremity cellulitis. He relates the onset of his right foot ulcers approximately 1 month ago and he has been seeing his primary care physician in the outpatient setting, Nora Jack. He was started on oral antibiotics and has been doing well with serial debridements and localized wound care plan. He denies recent trauma. He denies odor or purulent drainage from the foot. He does report some swelling of the lower extremities and some mild discomfort on the right. He also has a prior history of foot ulcers from several years ago. He reports claudication after walking a half of the block. He has rest burning and lack of sensation consistent with neuropathy. He has been working with his primary care provider on better controlling his glucose levels. Past Medical History Past Medical History (Chronic Problems): Chronic Problems (Last Reviewed 02/04/20 @ 18:20 by VICTORIA Vargas) Ulcer of right foot with fat layer exposed (Chronic) Type 2 diabetes mellitus with diabetic polyneuropathy (Chronic) PAD (peripheral artery disease) (Chronic) Peripheral neuropathy (Chronic) Diabetes type 2, uncontrolled (Chronic) Medical History: Medical History (Last Reviewed 02/04/20 @ 18:20 by VICTORIA Vargas) Arthritis of left shoulder region M19.012 COPD (chronic obstructive pulmonary disease) J44.9 Diabetes type 2, uncontrolled E11.65 Hyperlipidemia LDL goal <130 E78.5 Osteoarthritis of left knee M17.12 Pulmonary embolism I26.99 after R knee surgery Allergies canagliflozin [From Invokana] Allergy (Severe, Verified 04/18/20 02:52) FLU SYMPTOMS heparin Allergy (Verified 04/18/20 02:52) Unknown Home Medications: Ambulatory Orders Medication Instructions Recorded tramadol 50 mg tablet 100 mg PO Q8H PRN #180 tab 11/20/19 Gabapentin 800 mg PO BID 04/18/20 Insulin Glargine,Hum.rec.anlog 65 unit SUBCUT DAILY 04/18/20 [Lantus Solostar U-100 Insulin] Metformin HCl 1,000 mg PO BID 04/18/20 Pioglitazone HCl 45 mg PO DAILY 04/18/20 Surgical History: Surgical History (Last Reviewed 08/12/19 @ 21:51 by ZOEY VargasC) Knee arthropathy M17.10 R elbow nerves cut happened 21 years ago and R little finger is numb Status post right knee replacement Z96.651 Surgical History: total knee arthroplasty Smoking Status: Current every day smoker Patient Problems: Active and Suspected Problems (Last Reviewed 02/04/20 @ 18:20 by Nora Jack NP-C) Foot infection (Acute) Chest pain (Acute) Cellulitis of right foot (Acute) Claudication (Suspected) - Physical Exam Vitals/I&O's: Vital Signs Temp Pulse Resp BP Pulse Ox 98.3 F 62 17 185/91 H 98 04/18/20 05:56 04/18/20 06:29 04/18/20 05:56 04/18/20 05:56 04/18/20 05:56 Oxygen Delivery Method Room Air Weight: 131.1 kg Body Mass Index (BMI) 36.1 Intake and Output for Last 24 Hours 04/16/20 04/17/20 04/18/20 23:59 23:59 23:59 Intake Total 54 / 54 Balance 54 / 54 General: Alert, Oriented x3, Cooperative HEENT: Atraumatic Extremities: No cyanosis, Capillary Refill Less than 3 Seconds - All digits bilateral, No Calf Tenderness - Negative Bridget and Muñiz sign bilateral, Diminished Peripheral Pulses - 2 out of 4 PT pulses 104 DP right and 2 out of 4 DP left, Edema - Bilateral lower extremity edema and varicosities, - - Active range of motion digits x10 and ankles within normal limits Skin: Ulcer/ Wound - Plantar medial first metatarsal head ulcer and plantar lat eral foot proximal to the metatarsal heads with granular and fibrous base with some peripheral callus noted only to the medial ulcer. There is no exposed deep tissue, necrosis, maceration, purulence on expression odor erythema or streaking noted on physical exam this morning. The plantar medial first metatarsal head ulcer pre-debridement measurement was 1.2 x 0.6 x 0.1 cm and post debridement 1. 4 x 0.7 x 0.1 cm. The plantar lateral foot ulcer pre-debridement measurement was 1.4 x 2.4 x 0.1 cm and post debridement 1.5 x 2.5 x 0.1 cm. Hematogenous drainage only was noted. The adjacent skin is hairless, atrophic, and dry. There is no other ulcer or fissures., - - No erythema, streaking, signs of infection on the left lower extremity Musculoskeletal: No Tenderness to Palpation of Joints or Extremities, No Muscle Wasting, - - Dorsal contraction of lesser toes with prominent metatarsal heads bilateral. Compartments of bilateral lower extremities remain soft. There is no bogginess or fluctuance on palpation Neurological: - - Lack of normal epicritic sensation is consistent with his neuropathy status bilateral lower extremities Psych/Mental Status: Normal Affect, Appropriate Laboratory Results 04/18/20 03:05: WBC 11.0, RBC 4.78, Hgb 14.3, Hct 43.7, MCV 91.4, MCH 29.9, MCHC 32.7, RDW Std Deviation 46.2 H, RDW Coeff of Sami 13.5, Plt Count 231, MPV 11.1, Immature Gran % (Auto) 1.500 H, Neut % (Auto) 53.8, Lymph % (Auto) 32.3, [place] % (Auto) 8.5, Eos % (Auto) 3.3, Baso % (Auto) 0.6, Absolute Neuts (auto) 5.9, Absolute Lymphs (auto) 3.54, Nucleated RBC % 0, ESR 22 H 04/18/20 03:05: Sodium 136, Potassium 3.6, Chloride 104, Carbon Dioxide 30.0, Anion Gap 2 L, BUN 13, Creatinine 0.87, Estim Creat Clear Calc 107.92, Est GFR (MDRD) Af Amer 116, Est GFR (MDRD) Non-Af 95, BUN/Creatinine Ratio 15.0, Glucose 144 H, Calcium 8.4 L, Total Bilirubin 0.30, AST 12 L, ALT 28, Alkaline Phosphatase 88, Troponin I < 0.015, C-React Prot Ext Range 17.30 H, Total Protein 7.9, Albumin 3.5, Globulin 4.4 H, Albumin/Globulin Ratio 0.8 L 04/18/20 03:06: COVID-19 (YOLANDA) Not Detected 04/18/20 06:40: POC Glucose 103 Current Medications Acetaminophen (Tylenol) 650 mg PO Q6H PRN PRN PRN Reason: Pain Score 1-10/Temp > 100.7 F Aspirin (Ecotrin) 81 mg PO DAILY@0800 [facility] Gabapentin (Neurontin) 800 mg PO BIDCM [facility] Clindamycin Phosphate 900 mg/ (Dextrose) 106 mls @ 150 mls/hr IV Q8 ARACELI Last Admin: 04/18/20 07:07 Dose: 150 mls/hr Documented by: Insulin Glargine (Lantus (Bkc)) 65 units SC DAILY [facility] Nitroglycerin (Nitrostat) 0.4 mg SUBLINGUAL Q5M PRN PRN Reason: CARDIAC/CHEST PAIN Ondansetron HCl (Zofran) 4 mg IV Q8H PRN PRN PRN Reason: NAUSEA/VOMITING Pioglitazone HCl (Actos) 45 mg PO DAILY [facility] Sodium Chloride () 10 - 40 ml IV UD PRN PRN Reason: SALINE FLUSH Last Admin: 04/18/20 07:07 Dose: 10 ml Documented by: Tramadol HCl (Ultram) 100 mg PO Q8H PRN PRN PRN Reason: pain score 1-10/10 Last Admin: 04/18/20 06:56 Dose: 100 mg Documented by: Assessment/Plan All Active Problems (Last Reviewed 02/04/20 @ 18:20 by Nora Jack NP-C) Foot infection (Acute) Chest pain (Acute) Cellulitis of right foot (Acute) Staph aureus infection (Acute) Cellulitis (Acute) Swelling of right lower extremity (Acute) Ulcer of right foot due to type 2 diabetes mellitus (Acute) Left knee pain (Acute) Wellness examination (Acute) Osteoarthritis, multiple sites (Acute) Erectile dysfunction (Acute) Low testosterone in male (Acute) Arthritis (Acute) Osteoarthrosis, localized, primary, knee (Acute) Knee pain, left (Acute) Penetrating wound of left foot (Acute) Right foot ulcer with fat layer exposed x2 (Reid grade 1) Cellulitis resolving right foot resolving Diabetes with neuropathy (hemoglobin A1C 8.6% in 09/05) Claudication and peripheral vascular impairment work up in process Lower extremity edema Malnutrition suspected Xerosis Other comorbidities: Hyperlipidemia, COPD, history of pulmonary embolism I reviewed and discussed his case. He is afebrile and his vital signs are stable at this time. He was admitted for rule out acute coronary syndrome and also for right foot cellulitis. His white blood cell count at time of admission was 11 and ESR 22, and C-reactive protein 17.3. He is on clindamycin. His last wound culture demonstrated MRSA growth that was obtained in the outpatient setting over a month ago. Post debridement wound culture will be obtained. There are no overt local signs of cellulitis, purulence, or necrosis at this time. His x-rays were negative for soft tissue emphysema or foreign body, or destructive osseous changes deep to the ulcer sites. I do not recommend an MRI at this time. I do recommend offloading with heel weightbearing to surgical shoe. The shoe will be ordered. He was advised on improvement in glycemic control and nutrition supplementation to optimize healing. Supplementation will be ordered. Subcutaneous excisional debridement was performed today after verbal consent was obtained with a 15 blade scalpel. Local anesthesia was not required due to his neuropathy status. The pre-and post debridement measurements are noted in the clinical section. This was performed to excise devitalized subcutaneous tissue, fibrous tissue, biofilm, and slough. Pressure was applied to maintain hemostasis. He tolerated this well. A dressing with Aquacel Ag, gauze were ap plied. He also had subjective reports of claudication after walking half a block. I recommend updating his noninvasive vascular studies. He had this previously performed in 2016 without abnormalities and I recommend this is updated. I recommend lower extremity elevation to help reduce edema. Until his cardiac condition is clarified, I would hold off on aggressive compression therapy of the lower extremities. I recommend moisturization lotion application daily to keep his remaining skin integrity and retract. Lac-Hydrin was ordered. Upon ulcer healing I also recommend that he wears more appropriate supportive and protective shoe gear such as an extra-depth diabetic shoe with dual density Plastizote liners. This can be pursued in the outpatient setting. Medical management and ACS rule out per hospitalist service. He is in progressive care unit with telemetry. Thank you for the consultation. I will continue to follow him while in house. Please do not hesitate to call if you have any questions. Allison Swift DPM, [facility] [phone]
[2020-04-18] MEDS: Gabapentin 800 MG Tablet PO ×2 (08:12→16:02)
[2020-04-18] MEDS: Aspirin E.C. 81 MG Tablet PO (08:12)
[2020-04-18] MEDS: Ammonium Lactate 225 gm Bottle 1 APPLIC TOPICAL ×2 (12:25→20:55)
--- NOTE | 2020-04-18 14:06 | STRESSREP ---
Stress Test Report Date: 04/18/2020 Procedure: Pharmacologic stress nuclear imaging study Indications: Chest discomfort Consent: Per the patient Procedure: The patient underwent pharmacologic (Regadenoson) evaluation with a peak heart rate of 160 beats per minute (48 %predicted maximal heart rate) and a peak blood pressure of 142/60 mmHg. The baseline ECG demonstrated normal sinus rhythm. EKG during lexiscan infusion revealed no significant ST-T changes. EKG post infusion revealed no significant ischemic changes [There were no cardiac dysrhythmias pretest, during pharmacologic infusion, or recovery]. [There was no complaint of chest discomfort during pharmacologic infusion or recovery]. The examination was discontinued secondary to completion of protocol. Impression: 1. Lexiscan stress test test is negative for Lexiscan infusion induced EKG changes of ischemia. 2. Lexiscan stress test test is negative for Lexiscan infusion induced chest pain. 3. Results of the nuclear portion of the test is as below Myocardial perfusion imaging study: Technique: The patient was injected with 15 millicuries of technetium 99m Cardiolite and subsequently rest SPECT Cardiolite nuclear imaging was obtained in the horizontal long, vertical long, and short axis views. The patient underwent pharmacologic (Regadenoson) evaluation. Please see above for details. The patient was injected with 45 millicuries of technetium 99m Cardiolite and subsequently stress SPECT Cardiolite nuclear imaging was obtained in the horizontal long, vertical long, and short axis views. A gated Cardiolite study at peak stress was obtained. Interpretation: Rest and stress SPECT Cardiolite nuclear imaging status post realignment, normalization, and attenuation correction demonstrate overall normal myocardial radioisotope uptake. Gated images reveal no significant regional wall motion abnormalities. The reported LVEF is 54 %. Impression: 1. There is no evidence of significant ischemia or infarct. 2. Estimated ejection fraction is 54%. This note was generated with [employer] software. It may contain incorrect words, spelling, and punctuation that were not noted in checking the note before signing.
[2020-04-18 16:23] LABS: M R Staph aureus DNA By PCR POSITIVE (Negative); Probe Check PASS; Staph aureus DNA By PCR POSITIVE (Negative)
[2020-04-18 16:30] LABS: Bedside Glucose 143 mg/dL (70-110)
[2020-04-18 21:00] LABS: Bedside Glucose 268 mg/dL (70-110)
[2020-04-18] MEDS: Insulin Lispro 100 UNIT/ML INSULN.PEN SC (21:01)
[2020-04-19 03:18] VITALS: BP 141/62; PULSE 55; RESP 16; TEMP 36.4; O2SAT 99
[2020-04-19 04:04] VITALS: PULSE 59
[2020-04-19 06:20] LABS: Absolute Lymphocyte Count 2.94 X10^3/uL (0.83-4.51); Basophil# 0.06 X10^3/uL; Basophil% 0.8 % (0-1); Eosinophil# 0.27 X10^3/uL; Eosinophils% 3.8 % (0-5); Hematocrit 40.5 % (40-54); Hemoglobin 13.2 g/dL (13.0-16.5); Lymphocyte # 2.94 X10^3/ul (4.0); Lymphocyte % 41.5 % (19-41); Mean Corp Hgb Conc 32.6 g/dL (32-36); Mean Corpuscular Hgb 29.9 pg (27.0-32.0); Mean Corpuscular Volume 91.8 fL (80-94); Mean Platelet Vol. 10.9 fl (6.2-12.0); Monocyte# 0.68 X10^3/uL; Monocyte% 9.6 % (0-10); NRBC Flagged by Analyzer 0 % (0-5); Neutrophil # 3.02 X10^3/uL (2.7-7.7); Neutrophil % 42.7 % (47-70); Platelet Count 226 K/mm3 (150-450); RBC Distribution Width CV 13.8 % (11.6-14.6); RBC Distribution Width SD 46.7 fl (35.1-43.9); Red Blood Count 4.41 M/mm3 (4.6-6.2); White Blood Count 7.1 K/mm3 (4.4-11.0)
[2020-04-19] MEDS: Insulin Lispro 100 UNIT/ML INSULN.PEN SC ×2 (06:33→12:06)
[2020-04-19] MEDS: 0.9% Saline Lock 10 ML Syringe IV (06:34)
[2020-04-19 06:40] LABS: Bedside Glucose 239 mg/dL (70-110)
[2020-04-19 07:05] LABS: Anion Gap 2 (5-15); BUN 12 mg/dL (7-18); BUN/Creat Ratio 16.3 RATIO (10-20); Calcium,Total 8.5 mg/dL (8.5-10.1); Chloride 107 mmol/L (98-107); Creatinine, Serum 0.74 mg/dL (0.70-1.30); EST Glomerular Filtration Rate 115 mL/min (>60); Est Glom Filt Rate - Afr Amer 139 mL/min (>60); Estimated Creatinine Clearance 126.88 ml/min; Glucose 257 mg/dL (74-106); Sodium Level 137 mmol/L (136-145)
[2020-04-19 07:35] VITALS: PULSE 57
[2020-04-19 08:19] VITALS: BP 127/67; PULSE 53; RESP 16; TEMP 36.7; O2SAT 96
[2020-04-19] MEDS: Pioglitazone Hydrochloride 45 MG Tablet PO (08:32)
[2020-04-19] MEDS: Ammonium Lactate 225 gm Bottle 1 APPLIC TOPICAL (08:32)
[2020-04-19] MEDS: Aspirin E.C. 81 MG Tablet PO (08:32)
[2020-04-19] MEDS: Gabapentin 800 MG Tablet PO (08:32)
[2020-04-19] MEDS: Glucerna Shake 120 ML LIQUID PO (08:40)
--- NOTE | 2020-04-19 09:03 | PN_ITS ---
Patient Problems: Active and Suspected Problems (Last Reviewed 02/04/20 @ 18:20 by Nora Jack NP-Nancy) Foot infection (Acute) Chest pain (Acute) Cellulitis of right foot (Acute) Claudication (Suspected) Subjective: This 60-year-old male was seen bedside for follow-up of right foot ulcers with resolving cellulitis. He denies discomfort. He denies fever, chill, nausea, vomiting. - Physical Exam Vitals/I&O's: Vital Signs Temp Pulse Resp BP Pulse Ox 98.0 F 53 L 16 127/67 H 96 04/19/20 08:19 04/19/20 08:19 04/19/20 08:19 04/19/20 08:19 04/19/20 08:19 Oxygen Delivery Method Room Air Weight: 131.1 kg Body Mass Index (BMI) 36.1 Intake and Output for Last 24 Hours 04/17/20 04/18/20 04/19/20 23:59 23:59 23:59 Intake Total 1192 / 1192 106 / 106 Balance 1192 / 1192 106 / 106 General: Alert, Oriented x3, Cooperative HEENT: Atraumatic Extremities: No cyanosis, Capillary Refill Less than 3 Seconds, No Calf Tenderness, Diminished Peripheral Pulses, Edema - Decreased Skin: Ulcer/ Wound - No purulence, erythema, streaking, odor, acute signs of infection. Musculoskeletal: - - Forefoot deformities Neurological: - - Lack of epicritic sensation light touch is consistent with his neuropathy status Psych/Mental Status: Normal Affect, Appropriate Laboratory Results 04/18/20 12:19: Troponin I < 0.015 04/18/20 14:55: S.aureus Protein A PCR POSITIVE H, MRSA (PCR) POSITIVE H 04/18/20 16:00: POC Glucose 143 H 04/18/20 20:58: POC Glucose 268 H 04/19/20 05:40: WBC 7.1, RBC 4.41 L, Hgb 13.2, Hct 40.5, MCV 91.8, MCH 29.9, MCHC 32.6, RDW Std Deviation 46.7 H, RDW Coeff of Sami 13.8, Plt Count 226, MPV 10.9, Immature Gran % (Auto) 1.600 H, Neut % (Auto) 42.7 L, Lymph % (Auto) 41.5 H, [place] % (Auto) 9.6, Eos % (Auto) 3.8, Baso % (Auto) 0.8, Absolute Neuts (auto) 3.0, Absolute Lymphs (auto) 2.94, Nucleated RBC % 0 04/19/20 05:40: Sodium 137, Potassium 4.0, Chloride 107, Carbon Dioxide 28.0, Anion Gap 2 L, BUN 12, Creatinine 0.74, Estim Creat Clear Calc 126.88, Est GFR (MDRD) Af Amer 139, Est GFR (MDRD) Non-Af 115, BUN/Creatinine Ratio 16.3, Glucose 257 H, Calcium 8.5 04/19/20 06:32: POC Glucose 239 H Current Medications Acetaminophen (Tylenol) 650 mg PO Q6H PRN PRN PRN Reason: Pain Score 1-10/Temp > 100.7 F Aspirin (Ecotrin) 81 mg PO DAILY@0800 [facility] Last Admin: 04/19/20 08:32 Dose: 81 mg Documented by: Dextrose (D50w Syringe) 0 gm IV X1 PRN; Protocol PRN Reason: Hypoglycemia [facility]) [facility] Last Admin: 04/19/20 08:32 Dose: 800 mg Documented by: Glucagon () 1 mg IM .X1 PRN PRN Reason: Hypoglycemia Clindamycin Phosphate 900 mg/ (Dextrose) 106 mls @ 150 mls/hr IV Q8 [facility] Last Infusion: 04/19/20 08:15 Dose: Infused Documented by: Insulin Glargine (Lantus (Bk)) 65 units SC DAILY [facility] Last Admin: 04/19/20 08:33 Dose: 65 u Documented by: Insulin Human Lispro (Humalog Kwikpen (Bk)) 0 unit SC ACHS [facility]; Protocol Last Admin: 04/19/20 06:33 Dose: 4 u Documented by: Lactic Acid (Lac-Hydrin, Amlactin) 1 applic TOPICAL BID [facility]; Protocol Last Admin: 04/19/20 08:32 Dose: 1 applicatio Documented by: Nitroglycerin (Nitrostat) 0.4 mg SUBLINGUAL Q5M PRN PRN Reason: CARDIAC/CHEST PAIN Nutritional Formula (Isaiah - [place] Flavor) [facility] Last Admin: 04/19/20 08:32 Dose: 1 packet Documented by: Nutritional Formula (Lactose Free) (Glucerna Shake) 120 ml PO 4X/DAY [facility] Last Admin: 04/19/20 08:40 Dose: 120 ml Documented by: Ondansetron HCl (Zofran) 4 mg IV Q8H PRN PRN PRN Reason: NAUSEA/VOMITING Pioglitazone HCl (Actos) 45 mg PO DAILY [facility] Last Admin: 04/19/20 08:32 Dose: 45 mg Documented by: Sodium Chloride () 10 - 40 ml IV UD PRN PRN Reason: SALINE FLUSH Last Admin: 04/19/20 06:34 Dose: 10 ml Documented by: Tramadol HCl (Ultram) 100 mg PO Q8H PRN PRN PRN Reason: pain score 1-10/10 Last Admin: 04/18/20 20:43 Dose: 100 mg Documented by: Medical Necessity - Tobacco Use Smoking Status: Current every day smoker Assessment/Plan All Active Problems (Last Reviewed 02/04/20 @ 18:20 by Nora Jack, [employer]IVER-C) Foot infection (Acute) Chest pain (Acute) Cellulitis of right foot (Acute) Staph aureus infection (Acute) Cellulitis (Acute) Swelling of right lower extremity (Acute) Ulcer of right foot due to type 2 diabetes mellitus (Acute) Left knee pain (Acute) Wellness examination (Acute) Osteoarthritis, multiple sites (Acute) Erectile dysfunction (Acute) Low testosterone in male (Acute) Arthritis (Acute) Osteoarthrosis, localized, primary, knee (Acute) Knee pain, left (Acute) Penetrating wound of left foot (Acute) Right foot ulcer with fat layer exposed x2 (Reid grade 1) Cellulitis resolving right foot resolved Diabetes with neuropathy (hemoglobin A1C 8.6% in 09/05) Claudication and peripheral vascular impairment work up in process Lower extremity edema Malnutrition suspected Xerosis Other comorbidities: Hyperlipidemia, COPD, history of pulmonary embolism I reviewed and discussed his case. He is afebrile and his vital signs are stable at this time. He does not have leukocytosis. I do recommend offloading with heel weightbearing to surgical shoe. He was advised on improvement in glycemic control and nutrition supplementation to optimize he His dressing was changed today with Aquacel Ag. His local signs of infection have completely resolved. His MRSA PCR was positive. He was advised to wash his foot with soap and water prior to each dressing change and to wear gloves during home care. It is noted he was treated for MRSA earlier this year as well. He is on clindamycin at this time. He also had subjective reports of claudication after walking half a block. I recommend updating his noninvasive vascular studies. He does not have signs of critical limb ischemia and this can be done in the outpatient setting. He is already established with Nora Jack, wound care center provider. He is advised to follow-up in the outpatient setting. He was also offered to follow-up with the foot and ankle center to get set up with extra-depth diabetic shoes. Okay to discharge from podiatry standpoint. Please not hesitate to call if you have any questions. Allison Swift DPM, FACFAS [facility] [phone]
--- NOTE | 2020-04-19 09:09 | DCINST_ITS ---
Weight Bearing Status: Partial weight bearing - Heel weight-bear with surgical shoe Keep extremity elevated above heart level: Right Leg Call your doctor if your incision/area has: Continuous Slow Oozing, Sudden Increased Bleeding, Increased Pain/ Swelling, Increased Redness, Foul Smelling Discharge Call your doctor if you observe: Fever of 101 or Higher, Calf discomfort, Uncontrolled pain Cleanse incision/area with: Soap & Water Additional Dressing/Incision Instructions:: Change daily with moistened Aquacel Ag and gauze Additional Instructions: Complete noninvasive vascular studies of the lower extremity in the outpatient setting. Allergies/Adverse Reactions: Allergies canagliflozin [From Invokana] Allergy (Severe, Verified 04/18/20 02:52) FLU SYMPTOMS heparin Allergy (Verified 04/18/20 02:52) Unknown Medications to take at Discharge tramadol 50 mg tablet 100 mg PO Q8H PRN #180 tab 11/20/19 Gabapentin 800 mg PO BID 04/18/20 Insulin Glargine,Hum.rec.anlog [Lantus Solostar U-100 Insulin] 65 unit SUBCUT DAILY 04/18/20 Metformin HCl 1,000 mg PO BID 04/18/20 Pioglitazone HCl 45 mg PO DAILY 04/18/20 Primary Care Physician: Nora Jack NP-C [Primary Care Provider] - Please follow up with your Primary Care Physician in: 1 week at [facility] Test Results: Test results from this visit will be discussed in further detail at your follow- up appointment, if applicable. Please Follow Up With: [facility] When: w/in 3 months for extra depth diabetic shoes Proposed Discharge Date: 04/19/20
--- NOTE | 2020-04-19 10:51 | PCM.DC ---
- Discharge Diagnoses Current Active Problems: Current Active and Chronic Problems (Last Reviewed 02/04/20 @ 18:20 by VICTORIA Vargas) Foot infection (Acute) Chest pain (Acute) Ulcer of right foot with fat layer exposed (Chronic) Cellulitis of right foot (Acute) Type 2 diabetes mellitus with diabetic polyneuropathy (Chronic) You will use the following diet at home:: Calorie/Carbohydrate Controlled (specify 1200, 1400, etc) Discharge Activity: Return to Normal Activity Weight Bearing Status: Partial weight bearing - Heel weight-bear with surgical shoe Keep extremity elevated above heart level: Right Leg Call your doctor if your incision/area has: Continuous Slow Oozing, Sudden Increased Bleeding, Increased Pain/ Swelling, Increased Redness, Foul Smelling Discharge Call your doctor if you observe: Fever of 101 or Higher, Calf discomfort, Uncontrolled pain Cleanse incision/area with: Soap & Water Additional Dressing/Incision Instructions:: Change daily with moistened Aquacel Ag and gauze Allergies/Adverse Reactions: Allergies canagliflozin [From Invokana] Allergy (Severe, Verified 04/18/20 02:52) FLU SYMPTOMS heparin Allergy (Verified 04/18/20 02:52) Unknown Medications to take at Discharge tramadol 50 mg tablet 100 mg PO Q8H PRN #180 tab 11/20/19 Gabapentin 800 mg PO BID 04/18/20 Insulin Glargine,Hum.rec.anlog [Lantus Solostar] 65 unit SUBCUT DAILY 04/18/20 Metformin HCl 1,000 mg PO BID 04/18/20 Pioglitazone HCl 45 mg PO DAILY 04/18/20 Clindamycin HCl [Cleocin] 300 mg PO Q6H #24 cap 04/19/20 The following prescriptions were given: Clindamycin HCl [Cleocin] 300 mg PO Q6H #24 cap Transmission Status: Pending to [facility]/pharmacy #[id number] Primary Care Physician: Nora Jack NP-C [Primary Care Provider] - Please follow up with your Primary Care Physician in: As scheduled Test Results: Test results from this visit will be discussed in further detail at your follow-up appointment, if applicable. Please Follow Up With: [facility] When: w/in 3 months for extra depth diabetic shoes Proposed Discharge Date: 04/19/20
--- NOTE | 2020-04-19 11:00 | PCM.DC.SUM ---
<Marina Das - Last Filed: 04/19/20 11:13> Discharge Date and Diagnosis Date of Admission: 04/18/20 Date of Discharge: 04/19/20 - Primary Discharge Diagnosis Acute Problems: Active Problems (Last Reviewed 02/04/20 @ 18:20 by VICTORIA Vargas) 1. Chest pain, ACS ruled out 2. Right lower extremity diabetic foot ulceration with right lower extremity cellulitis 3. Type 2 diabetes mellitus with peripheral neuropathy Suspected Problems: Suspected Problems (Last Reviewed 02/04/20 @ 18:20 by VICTORIA Vargas) Claudication (Suspected) - Secondary Discharge Diagnosis Chronic Problems: Chronic Problems (Last Reviewed 02/04/20 @ 18:20 by VICTORIA aVrgas) Hospital Course and Treatment Imaging Results: Diagnostic Data Chest X-Ray 04/18/20 02:54 IMPRESSION: Bibasilar atelectasis versus infiltrate, left greater than right. Electronically Signed: Zaid Vásquez MD at 4:13 EDT Tel , Service support , Chest CTA 04/18/20 02:55 IMPRESSION: 1. No acute pulmonary embolism. 2. 6 mm pleural-based nodule within the superior segment right lower lobe. 3. Simple appearing left upper renal pole cyst. Electronically Signed: Zaid Vásquez MD at 4:52 EDT Tel , Service support , Foot X-Ray 04/18/20 02:56 IMPRESSION: 1. Soft tissue ulceration overlying the right aspect of the metatarsal heads with bony abnormality 2. Multifocal osteoarthritic change Electronically Signed: Zaid Vásquez MD at 4:12 EDT Tel , Service support , Consultations 04/18/20 06:16 Consult: Onc/Wound/electronic assembler Routine Comment: Operations: None Procedures: Stress test Summary of Care Provided: The patient is a 60 year old M admitted 04/18/2020 due to chest pain and right lower extremity pain and swelling. 1. Chest pain, ACS ruled out-troponin negative. EKG without ST-T changes. Patient underwent nuclear stress test which was negative for ischemia. Estimated ejection fraction 54%. Further follow-up with primary care physician. 2. Right lower extremity diabetic foot ulceration with right lower extremity cellulitis-podiatry consulted. Recommend offloading with heel weightbearing right lower extremity. Patient will need daily dressing changes with Aquacel Ag. Wound culture pending. Prior wound culture February 2020 grew MRSA, clindamycin susceptible. MRSA/MSSA PCR both positive. IV clindamycin during admission. Discharged on oral clindamycin to complete course. Podiatry recommending noninvasive vascular studies which can be completed in the outpatient setting. Patient follows with Nora Jack NP at wound care center. Continue follow-up as scheduled. 3. Type 2 diabetes mellitus with peripheral neuropathy-continue home insulin regimen. Patient seen and examined prior to discharge. Physical assessment as noted below. Patient is stable for discharge with follow up recommendations as noted above. This patient was seen by VICTORIA Martin under the supervision of Dr. Cameron. - Physical Exam Vitals/I&O's: Vital Signs Temp Pulse Resp BP Pulse Ox 98.0 F 53 L 16 127/67 H 96 04/19/20 08:19 04/19/20 08:19 04/19/20 08:19 04/19/20 08:19 04/19/20 08:19 Oxygen Delivery Method Room Air Weight: 289 lb 0.416 oz Body Mass Index (BMI) 36.1 Intake and Output for Last 24 Hours 04/17/20 04/18/20 04/19/20 23:59 23:59 23:59 Intake Total 1192 / 1192 106 / 106 Balance 1192 / 1192 106 / 106 General: Alert, Oriented x3, Cooperative HEENT: Atraumatic, PERRLA, EOMI, Normocephalic Neck: Supple, No JVD, Negative Carotid Bruits Lungs: Clear to auscultation, Normal air movement Cardiovascular: Regular rate, No murmurs Abdomen: Bowel Sounds Present, Soft, Non Tender, Non-Distended, Obese Extremities: No clubbing, No cyanosis, No edema Skin: No rashes, No breakdown, - - Right foot ulceration, dressing intact. Changed by podiatry this morning. Surrounding erythema improved. Neurological: Cranial nerves II-XII grossly intact, Neuro grossly intact Psych/Mental Status: Normal Affect, Appropriate Laboratory Results 04/18/20 12:19: Troponin I < 0.015 04/18/20 14:55: S.aureus Protein A PCR POSITIVE H, MRSA (PCR) POSITIVE H 04/18/20 16:00: POC Glucose 143 H 04/18/20 20:58: POC Glucose 268 H 04/19/20 05:40: WBC 7.1, RBC 4.41 L, Hgb 13.2, Hct 40.5, MCV 91.8, MCH 29.9, MCHC 32.6, RDW Std Deviation 46.7 H, RDW Coeff of Sami 13.8, Plt Count 226, MPV 10.9, Immature Gran % (Auto) 1.600 H, Neut % (Auto) 42.7 L, Lymph % (Auto) 41.5 H, [place] % (Auto) 9.6, Eos % (Auto) 3.8, Baso % (Auto) 0.8, Absolute Neuts (auto) 3.0, Absolute Lymphs (auto) 2.94, Nucleated RBC % 0 04/19/20 05:40: Sodium 137, Potassium 4.0, Chloride 107, Carbon Dioxide 28.0, Anion Gap 2 L, BUN 12, Creatinine 0.74, Estim Creat Clear Calc 126.88, Est GFR (MDRD) Af Amer 139, Est GFR (MDRD) Non-Af 115, BUN/Creatinine Ratio 16.3, Glucose 257 H, Calcium 8.5 04/19/20 06:32: POC Glucose 239 H Current Medications Acetaminophen (Tylenol) 650 mg PO Q6H PRN PRN PRN Reason: Pain Score 1-10/Temp > 100.7 F Aspirin (Ecotrin) 81 mg PO DAILY@0800 [facility] Last Admin: 04/19/20 08:32 Dose: 81 mg Documented by: Dextrose (D50w Syringe) 0 gm IV X1 PRN; Protocol PRN Reason: Hypoglycemia Gabapentin (Neurontin) 800 mg PO BIDCM [facility] Last Admin: 04/19/20 08:32 Dose: 800 mg Documented by: Glucagon () 1 mg IM .X1 PRN PRN Reason: Hypoglycemia Clindamycin Phosphate 900 mg/ (Dextrose) 106 mls @ 150 mls/hr IV Q8 [facility] Last Infusion: 04/19/20 08:15 Dose: Infused Documented by: Insulin Glargine (Lantus (Bk)) 65 units SC DAILY [facility] Last Admin: 04/19/20 08:33 Dose: 65 u Documented by: Insulin Human Lispro (Humalog Kwikpen ([facility])) 0 unit SC ACHS [facility]; Protocol Last Admin: 04/19/20 06:33 Dose: 4 u Documented by: Lactic Acid (Lac-Hydrin, Amlactin) 1 applic TOPICAL BID [facility]; Protocol Last Admin: 04/19/20 08:32 Dose: 1 applicatio Documented by: Nitroglycerin (Nitrostat) 0.4 mg SUBLINGUAL Q5M PRN PRN Reason: CARDIAC/CHEST PAIN Nutritional Formula (Isaiah - [place] Flavor) 1 packet PO BIDCM [facility] Last Admin: 04/19/20 08:32 Dose: 1 packet Documented by: Nutritional Formula (Lactose Free) (Glucerna Shake) 120 ml PO 4X/DAY [facility] Last Admin: 04/19/20 08:40 Dose: 120 ml Documented by: Ondansetron HCl (Zofran) 4 mg IV Q8H PRN PRN PRN Reason: NAUSEA/VOMITING Pioglitazone HCl (Actos) 45 mg PO DAILY [facility] Last Admin: 04/19/20 08:32 Dose: 45 mg Documented by: Sodium Chloride () 10 - 40 ml IV UD PRN PRN Reason: SALINE FLUSH Last Admin: 04/19/20 06:34 Dose: 10 ml Documented by: Tramadol HCl (Ultram) 100 mg PO Q8H PRN PRN PRN Reason: pain score 1-10/10 Last Admin: 04/18/20 20:43 Dose: 100 mg Documented by: Discharge Diet: Carb Control Diet Discharge Activity: Return to Normal Activity Weight Bearing Status: Partial weight bearing - Heel weight-bear with surgical shoe Keep extremity elevated above heart level: Right Leg Call your doctor if your incision/area has: Continuous Slow Oozing, Sudden Increased Bleeding, Increased Pain/ Swelling, Increased Redness, Foul Smelling Discharge Call your doctor if you observe: Fever of 101 or Higher, Calf discomfort, Uncontrolled pain Cleanse incision/area with: Soap & Water Additional Dressing/Incision Instructions:: Change daily with moistened Aquacel Ag and gauze Home Medications: Medications to take at Discharge tramadol 50 mg tablet 100 mg PO Q8H PRN #180 tab 11/20/19 Gabapentin 800 mg PO BID 04/18/20 Insulin Glargine,Hum.rec.anlog [Lantus Solostar] 65 unit SUBCUT DAILY 04/18/20 Metformin HCl 1,000 mg PO BID 04/18/20 Pioglitazone HCl 45 mg PO DAILY 04/18/20 Clindamycin HCl [Cleocin] 300 mg PO Q6H #24 cap 04/19/20 Following Prescriptions Were Given to Patient: Clindamycin HCl [Cleocin] 300 mg PO Q6H #24 cap Transmission Status: Received by [facility]/pharmacy #[id number] Primary Care Physician: Nora Jack NP-C [Primary Care Provider] - Please follow up with your Primary Care Physician in: As scheduled Please Follow Up With: [facility] When: w/in 3 months for extra depth diabetic shoes Additional Instructions: Complete noninvasive vascular studies of the lower extremity in the outpatient setting. Disposition: Home Minutes spent on discharge:: 35 Patient Condition:: Stable Medical Necessity - Tobacco Use Smoking Status: Current every day smoker Meaningful Use Info Meaningful Use Diagnoses (Choose all that apply): None applicable <Parker Cameron F - Last Filed: 04/19/20 15:40> Discharge Date and Diagnosis - Secondary Discharge Diagnosis Chronic Problems: Chronic Problems (Last Reviewed 02/04/20 @ 18:20 by ZOEY VargasC) Ulcer of right foot with fat layer exposed (Chronic) Type 2 diabetes mellitus with diabetic polyneuropathy (Chronic) PAD (peripheral artery disease) (Chronic) Peripheral neuropathy (Chronic) Diabetes type 2, uncontrolled (Chronic) Hospital Course and Treatment Consultations 04/18/20 06:16 Consult: Onc/Wound/electronic assembler Routine Comment: Summary of Care Provided: The patient is a 60 year old M [] - Physical Exam Vitals/I&O's: Vital Signs Temp Pulse Resp BP Pulse Ox 98.0 F 53 L 16 127/67 H 96 04/19/20 08:19 04/19/20 08:19 04/19/20 08:19 04/19/20 08:19 04/19/20 08:19 Oxygen Delivery Method Room Air Weight: 289 lb 0.416 oz Body Mass Index (BMI) 36.1 Intake and Output for Last 24 Hours 04/17/20 04/18/20 04/19/20 23:59 23:59 23:59 Intake Total 1192 / 1192 106 / 106 Balance 1192 / 1192 106 / 106 Microbiology Past 72 Hours 04/18/20 11:35 Wound - Aerobic & Anaerobic Swabs Gram Stain - Final 04/18/20 11:35 Wound - Aerobic & Anaerobic Swabs Wound Culture - Preliminary Staphylococcus aureus Laboratory Results 04/18/20 14:55: S.aureus Protein A PCR POSITIVE H, MRSA (PCR) POSITIVE H 04/18/20 16:00: POC Glucose 143 H 04/18/20 20:58: POC Glucose 268 H 04/19/20 05:40: WBC 7.1, RBC 4.41 L, Hgb 13.2, Hct 40.5, MCV 91.8, MCH 29.9, MCHC 32.6, RDW Std Deviation 46.7 H, RDW Coeff of Sami 13.8, Plt Count 226, MPV 10.9, Immature Gran % (Auto) 1.600 H, Neut % (Auto) 42.7 L, Lymph % (Auto) 41.5 H, [place] % (Auto) 9.6, Eos % (Auto) 3.8, Baso % (Auto) 0.8, Absolute Neuts (auto) 3.0, Absolute Lymphs (auto) 2.94, Nucleated RBC % 0 04/19/20 05:40: Sodium 137, Potassium 4.0, Chloride 107, Carbon Dioxide 28.0, Anion Gap 2 L, BUN 12, Creatinine 0.74, Estim Creat Clear Calc 126.88, Est GFR (MDRD) Af Amer 139, Est GFR (MDRD) Non-Af 115, BUN/Creatinine Ratio 16.3, Glucose 257 H, Calcium 8.5 04/19/20 06:32: POC Glucose 239 H 04/19/20 11:59: POC Glucose 242 H Addendum: Dr. Cameron I personally examined the patient and reviewed the chart. I agree with the above. 60-year-old male diabetes and morbid obesity presented with chest pain as well as right lower extremity cellulitis. He had a stress test which was unremarkable in the setting of 3 negative troponins and a normal EKG, and his cellulitis rapidly improved with IV clindamycin. He is MRSA positive based on PCR and he did have a wound culture about a month ago which was positive for MRSA sensitive to clindamycin therefore he will be discharged just on clindamycin. He needs to follow-up with his PCP as well as the wound care center. He can follow-up with the foot and ankle center to be fitted for diabetic boot if necessary. The plan for discharge was discussed and he expressed understanding of the risks and benefits. OBSV E&M: [id number] Observation care discharge
[2020-04-19 12:10] LABS: Bedside Glucose 242 mg/dL (70-110)
== END 2020-04-19 10:51 | disposition home or self-care (01) ==
LOC: ED 04:58 → PCU 05:19
PROVIDERS: Podiatrist; Admitting Provider Student in an Organized Health Care Education/Training Program; Emergency Provider Emergency Medicine; PCP Nurse Practitioner; Visit Provider Family Medicine
DX: L03.115 Cellulitis of right lower limb (principal); R07.89 Other chest pain; E11.621 Type 2 diabetes mellitus with foot ulcer; E11.42 Type 2 diabetes mellitus with diabetic polyneuropathy; L97.519 Non-pressure chronic ulcer of other part of right foot with unspecified severity; I10 Essential (primary) hypertension; F17.200 Nicotine dependence, unspecified, uncomplicated; E11.51 Type 2 diabetes mellitus with diabetic peripheral angiopathy without gangrene; J44.9 Chronic obstructive pulmonary disease, unspecified; E78.5 Hyperlipidemia, unspecified; M17.12 Unilateral primary osteoarthritis, left knee; Z86.711 Personal history of pulmonary embolism; Z79.4 Long term (current) use of insulin; Z79.899 Other long term (current) drug therapy; L97.512 Non-pressure chronic ulcer of other part of right foot with fat layer exposed; B95.62 Methicillin resistant Staphylococcus aureus infection as the cause of diseases classified elsewhere
CPT/HCPCS: 11042; 36415; 71045; 71275; 73630; 78452; 80048; 80053; 82962; 84484; 85025; 85652; 86140; 87070; 87075; 87077; 87186; 87205; 87635; 87640; 93005; 93017; 94799; 96365; 96366; 97802; 99218; 99285; A9500; J7030; Q9967; A4216; G0378; J2785; U0003

== ENCOUNTER → 2020-04-23 09:44 | Outpatient (CLI) | payer MEDICAID, SELFPAY ==
[2020-04-20 18:17] VITALS: BMI 36.1
--- NOTE | 2020-04-23 09:46 | VDLE_ITS ---
Reason For Study: DFU RIGHT LEFT CFV is compressible, spontaneous, phasic, CFV is compressible, spontaneous, phasic, competent and demonstrates normal competent, and demonstrates normal augmentation. augmentation. PTV is compressible. FV is compressible, spontaneous, phasic, RT PerV is compressible. competent and demonstrates normal SFJ is competent and measures .61 x .78 cm. augmentation. GSV proximal thigh measures .6 x .61 cm. POP V is compressible, spontaneous, phasic, GSV at knee measures .54 x .54 cm. competent and demonstrates normal GSV INCOMPETENT throughout for greater than augmentation. 0.5 seconds. T/P Trunk is compressible. SSV proximal calf is competent and PTV is compressible. measures .3 x .29 cm. LT PerV is compressible. Chronic vein wall thickening is noted in the SFJ is competent and measures .34 x .34 cm. FV, Pop V, and T/P Trunk. Normal venous flow GSV proximal thigh measures .34 x .34 cm. patterns are noted. GSV above knee is competent. ASV below the knee is incnompetent for GSV at knee measures .24 x .26 cm. greater than .5 seconds with a diameter GSV below knee is INCOMPETENT for greater of .47 x .53 cm. than 0.5 seconds. Steward/Stewardess Tourist Class V 10 cm proximal to the medial SSV proximal calf is competent and malleolus is incompetent for greater than .5 measures .34 x .35 cm. seconds. Steward/Stewardess Tourist Class V 8 cm proximal to the medial Steward/Stewardess Tourist Class V 17 cm proximal to the medial malleolus is incompetent for greater than .5 malleolus is incompetent for greater than .5 seconds. seconds. Interpretation Summary Chronic vein wall thickening is noted in the right femoral vein, popliteal vein, and tibio-peroneal trunk, though normal venous flow patterns are noted. The remainder of the right lower extremity deep venous system is patent and compressible. The right common femoral vein is competent. Deep veins of the left lower extremity are patent and compressible segmentally. There is no evidence of left lower extremity deep vein thrombosis. Valvular competence appears intact within the proximal deep venous system on the left . The great saphenous veins appear bilaterally patent and compressible segmentally. Sapheno-femoral junctions are bilaterally competent . The right great saphenous vein appears segmentally incompetent. The left great saphenous vein appears competent above the knee. The left great saphenous vein appears incompetent below the knee. Small saphenous veins are patent and competent bilaterally. The right accessory saphenous vein below the knee is incompetent. Two incompetent gaming cage worker veins are noted in the right calf, located 10 centimeters and 17 centimeters proximal to the right medial malleolus. An incompetent gaming cage worker vein is noted in the left calf, located 8 centimeters proximal to the left medial malleolus. Ordering Physician: Nora Jack Referring Physician: Dr. Swift Performed By: Magdiel Tong RVT
--- NOTE | 2020-04-23 09:47 | ART_ITS ---
Reason For Study: DFU Procedure A bilateral lower extremity continuous wave Doppler with analog waveform analysis,segmental pressures,and ankle brachial indexes without exercise. Left Segmental Pressures Left brachial= 126mmHg. Left posterior tibial artery = 181mmHg. Left dorsalis pedis artery = 146mmHg. Left digit = 163 mmHg. The left dorsalis pedis waveforms are triphasic. The left posterior tibial artery waveforms are triphasic. Right Segmental Pressures Right brachial= 133mmHg. Right posterior tibial artery = 173mmHg. Right dorsalis pedis artery = 155mmHg. Right digit = 80 mmHg. The right dorsalis pedis waveforms are triphasic. The right posterior tibial artery waveforms are triphasic. Indices The right ankle brachial index by the posterior tibial artery is 1.3. The right ankle brachial index by the dorsalis pedis is 1.17. The right digital-brachial index is .6. The left ankle brachial index by the dorsalis pedis is 1.1. The left ankle brachial index by the posterior tibial artery is 1.36. The left digital-brachial index is 1.23. Interpretation Summary Triphasic Doppler waveforms are noted at ankle level bilaterally. Pulse-volume recordings appear satisfactory at all levels bilaterally, including low-thigh, calf, ankle, and digital levels. Resting ankle-brachial indices are normal bilaterally. The right digital-brachial index is mildly diminished. The left digital-brachial index is normal. Arterial flow appears normal at ankle level bilaterally, as well as at digital level on the left. There is evidence of mild, distal, small-vessel arterial occlusive disease at digital level on the right. Ordering Physician: Nora Jack Referring Physician: Dr. Swift Performed By: PANCHO RAMSEY RVT
== END ==
PROVIDERS: PCP Nurse Practitioner; Referring Provider Nurse Practitioner; Visit Provider Nurse Practitioner
DX: A49.02 Methicillin resistant Staphylococcus aureus infection, unspecified site (principal); E08.621 Diabetes mellitus due to underlying condition with foot ulcer
CPT/HCPCS: 93923; 93970

== ENCOUNTER 2020-05-13 10:00 | Outpatient (RCR) | payer MEDICAID, SELFPAY ==
[2020-04-20 18:17] VITALS: BMI 36.1
[2020-04-29 08:52] VITALS: BP 177/86; PULSE 66; RESP 20; TEMP 36.3; BMI 35.9
--- NOTE | 2020-04-29 22:07 | PCM.WC.PN ---
(1) Delayed wound healing Status: Chronic Current Visit: Yes Code(s): T14.8XXD - Other injury of unspecified body region, subsequent encounter (2) Ulcer of right foot with fat layer exposed Status: Chronic Current Visit: Yes Code(s): L97.512 - Non-pressure chronic ulcer of other part of right foot with fat layer exposed (3) Type 2 diabetes mellitus with diabetic polyneuropathy Status: Chronic Current Visit: Yes Code(s): E11.42 - Type 2 diabetes mellitus with diabetic polyneuropathy (4) Cellulitis of right foot Status: Resolved Current Visit: Yes Code(s): L03.115 - Cellulitis of right lower limb Type of Wound Date of Service: 04/29/20 Chief Complaint: left foot wound s/p metal shard penetrating wound approx 08/31/16 History of Wound: He has poor sensation in both feet and worked all day and at the end of the day when taking his socks off, the sock caught on what was a piece of metal corkscrewed into his left foot. He was able to pull it out and then finally a week later on 09/07 he presented to see his PCP. She drained the area and packed it and got an x-ray- no retained metal. He is still taking amoxicillin and the redness of the left great toe is greatly improved. He has been trying to elevate the foot as much as possible. - Physical Exam Vital Signs Temp Pulse Resp BP 97.3 F L 66 20 H 177/86 H 04/29/20 08:52 04/29/20 08:52 04/29/20 08:52 04/29/20 08:52 General: Alert, Oriented x3, Cooperative, No apparent distress HEENT: Atraumatic Extremities: No cyanosis, Capillary Refill Less than 3 Seconds, No Calf Tenderness, Edema - mild, Peripheral Pulses Normal Skin: Ulcer/ Wound - No purulence, erythema, streaking, odor, infection. Adjacent skin is atrophic Wound Measurements and Assessment WC - Nurse 1 - General Ulcer Measurement Start: 04/29/20 08:52 Freq: Status: Active Protocol: Activity Type Activity Date Activity User E-Sign Co-Sign Detail Recorded Client Recorded Date Recorded By Document 04/29/20 08:52 DL [id number] 04/29/20 09:13 DL 04/29/20 08:52 Wound Center Nurse 1 [Ulcer Assessment] #3 R Plantar Lat -Current Size (cm) - Length 1 -Current Size (cm) - Width 2.2 -Current Size (cm) - Depth 0.3 -Total Square Cm 2.2 -Photo Taken Yes -Classification - Reid Grading ( Grade 3 Diabetic Ulcer) -Exudate Amt Medium -Exudate Type Serosanguineous -Wound Margin Thickened -Granulation Amt Medium (34-66%) -Granulation Quality Red -Necrosis Amt Medium (34-66%) -Necrotic Tissue Type Adherent Slough -Texture (Kathia-wound Skin Appearance) Callus -Moisture (Kathia-wound Skin Appearance Maceration ) -Color (Kathia-wound Skin Appearance) Hemosiderin Staining,Rubor -Temperature (Kathia-wound Skin No Abnormality Appearance) (Pt Warm) -Tenderness on Palpation (Kathia-wound Yes Skin Appearance) -Ulcer Cleansing Wound Cleanser -Foul Odor after Cleansing No -Anesthetic Used 4% Lidocaine Solution #2 R Plantar Med -Current Size (cm) - Length 1 -Current Size (cm) - Width 0.8 -Current Size (cm) - Depth 0.3 -Total Square Cm 0.8 -Photo Taken Yes -Undermining/Tunneling Starts (O' 7 clock) -Undermining/Tunneling Ends (O'clock) 11 -Maximum Distance (cm) 0.4 -Classification - Reid Grading ( Grade 3 Diabetic Ulcer) -Exudate Amt Small -Exudate Type Serosanguineous -Wound Margin Thickened -Granulation Amt Small (1-33%) -Granulation Quality [place] -Necrosis Amt Small (1-33%) -Necrotic Tissue Type Adherent Slough -Structure Exposed N/A -Texture (Kathia-wound Skin Appearance) Callus -Moisture (Kathia-wound Skin Appearance Maceration ) -Color (Kathia-wound Skin Appearance) Hemosiderin Staining,Rubor -Temperature (Kathia-wound Skin No Abnormality Appearance) (Pt Warm) -Tenderness on Palpation (Kathia-wound No Skin Appearance) -Ulcer Cleansing Wound Cleanser -Foul Odor after Cleansing No -Anesthetic Used 4% Lidocaine Solution [Edema Assessment] -Right Calf (cm) 41.5 -Right Ankle (cm) 21.5 WC - Nurse 2 - General Ulcer CM Notes Start: 04/29/20 08:52 Freq: Status: Active Protocol: Activity Type Activity Date Activity User E-Sign Co-Sign Detail Recorded Client Recorded Date Recorded By Document 04/29/20 09:35 [id number] 04/29/20 09:39 04/29/20 09:35 Wound Center Nurse 2 [Procedure/Treatment] #3 R Plantar Lat -Time 09:36 -Correct Patient Yes -Correct Side, Site, Position Yes -Correct Procedure Yes -Procedure Performed Yes -Type of Procedure Debridement -Clinical Debridement Subcutaneous -Post Debridement Size (cm) - Length 1.1 -Post Debridement Size (cm) - Width 2.3 -Post Debridement Size (cm) - Depth 0.3 -Total Square (cm) 2.53 -Wound/Ulcer Outcome Not Healed -Ulcer Cleansing Rinsed/ Irrigated with Saline -Foul Odor after Cleansing No -Bioengineered Tissue No -Bleeding Controlled with Pressure -Offloading No -Treatment Response Procedure Tolerated Well #2 R Plantar Med -Time 09:36 -Correct Patient Yes -Correct Side, Site, Position Yes -Correct Procedure Yes -Procedure Performed Yes -Type of Procedure Debridement -Clinical Debridement Subcutaneous -Post Debridement Size (cm) - Length 1.1 -Post Debridement Size (cm) - Width 0.9 -Post Debridement Size (cm) - Depth 0.3 -Total Square (cm) 0.99 -Wound/Ulcer Outcome Not Healed -Ulcer Cleansing Rinsed/ Irrigated with Saline -Foul Odor after Cleansing No -Bioengineered Tissue No -Bleeding Controlled with Pressure -Offloading No -Treatment Response Procedure Tolerated Well [See Physician Procedure note for Specifics] Pain Scale: 0-10 Numeric [Pain] -Is Patient Pain Free? Yes Musculoskeletal: No Tenderness to Palpation of Joints or Extremities, Muscle Wasting, - - dorsal contraction of lesser digits with prominent metatarsal heads Neurological: - - lack of epicritic sensation via light touch Psych/Mental Status: Normal Affect, Appropriate Debridement Note Post-Debridement Measurements/Treatment WC - Nurse 2 - General Ulcer CM Notes Start: 04/29/20 08:52 Freq: Status: Active Protocol: Activity Type Activity Date Activity User E-Sign Co-Sign Detail Recorded Client Recorded Date Recorded By Document 04/29/20 09:35 [id number] 04/29/20 09:39 04/29/20 09:35 Wound Center Nurse 2 #3 R Plantar Lat -Time 09:36 -Correct Patient Yes -Correct Side, Site, Position Yes -Correct Procedure Yes -Procedure Performed Yes -Type of Procedure Debridement -Clinical Debridement Subcutaneous -Post Debridement Size (cm) - Length 1.1 -Post Debridement Size (cm) - Width 2.3 -Post Debridement Size (cm) - Depth 0.3 -Total Square (cm) 2.53 -Wound/Ulcer Outcome Not Healed -Ulcer Cleansing Rinsed/ Irrigated with Saline -Foul Odor after Cleansing No -Bioengineered Tissue No -Bleeding Controlled with Pressure -Offloading No -Treatment Response Procedure Tolerated Well #2 R Plantar Med -Time 09:36 -Correct Patient Yes -Correct Side, Site, Position Yes -Correct Procedure Yes -Procedure Performed Yes -Type of Procedure Debridement -Clinical Debridement Subcutaneous -Post Debridement Size (cm) - Length 1.1 -Post Debridement Size (cm) - Width 0.9 -Post Debridement Size (cm) - Depth 0.3 -Total Square (cm) 0.99 -Wound/Ulcer Outcome Not Healed -Ulcer Cleansing Rinsed/ Irrigated with Saline -Foul Odor after Cleansing No -Bioengineered Tissue No -Bleeding Controlled with Pressure -Offloading No -Treatment Response Procedure Tolerated Well Pain Scale: 0-10 Numeric Is Patient Pain Free? Yes Wound debrided: plantar medial and plantar lateral foot Laterality: Right Wound Grade/Stage: grade 1 Type of Debridement: Excisional debridement Anesthesia Used: 5% Lidocaine Gel Depth: in the subcutaneous layer Percentage of wound debrided: 100 Instrument Used: #15 blade Tissue Removed: fibrous, devitalized subcutaneous, biofilm, slough Severity: Fat Layer Exposed Amount of bleeding with debridement: Mild Bleeding Controlled with: Pressure Patient tolerated procedure well Assessment/Plan Active Problems (Last Updated 04/20/20 @ 21:30 by Nora Jack NP-C) Delayed wound healing (Chronic) Ulcer of right foot with fat layer exposed (Chronic) Type 2 diabetes mellitus with diabetic polyneuropathy (Chronic) Assessment: plantar right foot ulcer, grade 1. cellulitis right foot resolved. delayed wound healing. diabetes with neuropathy Plan: I reviewed and discussed his case. His cellulitis appears to be resolved compared to his recent inpatient status. Subcutaneous excisional debridement was performed as noted in the clinical panel. To change dressing daily with Aquasol AG. To wash the foot with soap and water during dressing changes. To offload by heel weightbearing surgical shoe that he has already at home. It is noted he presents wearing regular shoes today. I recommend he offload more with a total contact cast. He will need assistance with driving this to be applied next week. This ulcer has been open for well over a month and is chronic in nature with delayed healing. Therefore, I recommend application of advanced wound healing product, epi-fix. This is medically necessary for limb salvage and he is failed other conservative standard of care treatment plans. The indication, benefits, anticipated application and healing time and management were reviewed. He is amenable to proceed. Prior authorization will be initiated. I reviewed his noninvasive vascular studies which do not demonstrate gross abnormalities. There is potential small vessel abnormalities in a vascular referral will be performed if he has continued delayed in healing. His venous Doppler exams also reviewed reviewed including reflux evaluation he does have venous insufficiency. He was advised to wear compression dressing. Tubigrip was applied today. To elevate limbs at rest. To perform manual muscular contraction hourly while awake. To avoid salt in the diet. Referral will be performed to the customer acquisition specialist if continued nonhealing occurs. He is advised to continue to work on maintaining an appropriate diet and glucose management to optimize healing. I recommended nutritional supplementation as well. To return to the wound healing center in 1 week or call sooner if he has any return of infection signs. I do not recommend antibiotics at this time.
[2020-05-06 09:11] VITALS: BP 155/76; PULSE 67; RESP 20; TEMP 36.4; BMI 35.9
--- NOTE | 2020-05-06 15:35 | PN.PCM_ITS ---
(1) Delayed wound healing Status: Chronic Current Visit: Yes Code(s): T14.8XXD - Other injury of unspecified body region, subsequent encounter (2) Ulcer of right foot with fat layer exposed Status: Chronic Current Visit: Yes Code(s): L97.512 - Non-pressure chronic ulcer of other part of right foot with fat layer exposed (3) Type 2 diabetes mellitus with diabetic polyneuropathy Status: Chronic Current Visit: Yes Code(s): E11.42 - Type 2 diabetes mellitus with diabetic polyneuropathy (4) Cellulitis of right foot Status: Resolved Current Visit: Yes Code(s): L03.115 - Cellulitis of right lower limb (5) Hammer toe of right foot Status: Chronic Current Visit: Yes Code(s): M20.41 - Other hammer toe(s) (acquired), right foot Comment: with prominent metatarsal heads Type of Wound Date of Service: 05/06/20 Chief Complaint: right foot ulcers History of Wound: He has poor sensation in both feet and worked all day and at the end of the day when taking his socks off, the sock caught on what was a piece of metal corkscrewed into his left foot. He was able to pull it out and then finally a week later on 09/07 he presented to see his PCP. She drained the area and packed it and got an x-ray- no retained metal. He is still taking amoxicillin and the redness of the left great toe is greatly improved. He has been trying to elevate the foot as much as possible. Progress of Wound: stable - Physical Exam Vital Signs Temp Pulse Resp BP 97.5 F L 67 20 H 155/76 H 05/06/20 09:11 05/06/20 09:11 05/06/20 09:11 05/06/20 09:11 General: Alert, Oriented x3, Cooperative, No apparent distress HEENT: Atraumatic Extremities: No cyanosis, Capillary Refill Less than 3 Seconds, No Calf Tenderness, Diminished Peripheral Pulses, Edema - Mild Skin: Ulcer/ Wound - No purulence, erythema, streaking, erythema infection. The adjacent skin is hairless and atrophic., - - Adjacent skin is hairless and atrophic Wound Measurements and Assessment WC - Nurse 1 - General Ulcer Measurement Start: 04/29/20 08:52 Freq: Status: Active Protocol: Activity Type Activity Date Activity User E-Sign Co-Sign Detail Recorded Client Recorded Date Recorded By Document 05/06/20 09:11 DL [id number] 05/06/20 09:18 DL 05/06/20 09:11 Wound Center Nurse 1 [Ulcer Assessment] #3 R Plantar Lat -Current Size (cm) - Length 1.6 -Current Size (cm) - Width 1.8 -Current Size (cm) - Depth 0.2 -Total Square Cm 2.88 -Photo Taken No -Exudate Amt Small -Wound Margin Thickened -Granulation Amt Large (67-100%) -Granulation Quality Red -Necrosis Amt Small (1-33%) -Necrotic Tissue Type Adherent Slough -Structure Exposed N/A -Texture (Kathia-wound Skin Appearance) Callus -Moisture (Kathia-wound Skin Appearance Dry/Scaly ) -Color (Kathia-wound Skin Appearance) No Abnormality -Temperature (Kathia-wound Skin No Abnormality Appearance) (Pt Warm) -Tenderness on Palpation (Kathia-wound No Skin Appearance) -Ulcer Cleansing Rinsed/ Irrigated with Saline -Foul Odor after Cleansing No -Anesthetic Used 4% Lidocaine Solution #2 R Plantar Med -Current Size (cm) - Length 0.8 -Current Size (cm) - Width 0.6 -Current Size (cm) - Depth 0.2 -Total Square Cm 0.48 -Photo Taken No -Undermining/Tunneling Starts (O' 9 clock) -Undermining/Tunneling Ends (O'clock) 11 -Maximum Distance (cm) 0.3 -Exudate Amt Small -Exudate Type Serosanguineous -Wound Margin Thickened -Granulation Amt Medium (34-66%) -Granulation Quality [place] -Necrosis Amt Medium (34-66%) -Necrotic Tissue Type Adherent Slough -Structure Exposed N/A -Texture (Kathia-wound Skin Appearance) Callus -Moisture (Kathia-wound Skin Appearance Dry/Scaly ) -Color (Kathia-wound Skin Appearance) No Abnormality -Temperature (Kathia-wound Skin No Abnormality Appearance) (Pt Warm) -Tenderness on Palpation (Kathia-wound No Skin Appearance) -Ulcer Cleansing Rinsed/ Irrigated with Saline -Foul Odor after Cleansing No -Anesthetic Used 4% Lidocaine Solution [Edema Assessment] -Right Calf (cm) 42 -Right Ankle (cm) 26 WC - Nurse 2 - General Ulcer CM Notes Start: 05/05/20 19:26 Freq: Status: Active Protocol: Activity Type Activity Date Activity User E-Sign Co-Sign Detail Recorded Client Recorded Date Recorded By Document 05/06/20 10:29 SALUD [id number] 05/06/20 10:33 SALUD 05/06/20 10:29 Wound Center Nurse 2 [Procedure/Treatment] #3 R Plantar Lat -Time 10:29 -Correct Patient Yes -Correct Side, Site, Position Yes -Correct Procedure Yes -Procedure Performed Yes -Type of Procedure Debridement -Clinical Debridement Subcutaneous -Tissue Removed Subcutaneous -Post Debridement (cm) - Length 1.6 -Post Debridement (cm) - Width 1.9 -Post Debridement (cm) - Depth 0.2 -Total Square (Post) (cm) 3.04 -Area of Debridement (cm) - Length 1.6 -Area of Debridement (cm) - Width 1.9 -Total Square (Area) (cm) 3.04 -Tunneling No -Undermining/Tunneling No -Circular Undermining No -Wound/Ulcer Outcome Not Healed -Ulcer Cleansing Rinsed/ Irrigated with Saline -Foul Odor after Cleansing No -Bioengineered Tissue Yes -Type of Bioengineered Tissue Epifix -Expiration Date 12/17/24 -Product Lot Number [id number] -Percent Used 100 -Saline Lot Number [id number] -Bleeding Controlled with Pressure -Offloading Yes -Type of Offloading Total Contact Cast (TCC) - Right ($) -Debridement - Subq, 1st 20sq cm Yes -Apply Skin Sub - each addt'l 25 sq 1 cm - Feet -Epifix (per sq cm) 4 #2 R Plantar Med -Time 10:31 -Correct Patient Yes -Correct Side, Site, Position Yes -Correct Procedure Yes -Procedure Performed Yes -Type of Procedure Debridement -Clinical Debridement Subcutaneous -Tissue Removed Subcutaneous -Post Debridement (cm) - Length 1.6 -Post Debridement (cm) - Width 1.9 -Post Debridement (cm) - Depth 0.2 -Total Square (Post) (cm) 3.04 -Area of Debridement (cm) - Length 1.6 -Area of Debridement (cm) - Width 1.9 -Total Square (Area) (cm) 3.04 -Tunneling No -Undermining/Tunneling No -Circular Undermining No -Wound/Ulcer Outcome Not Healed -Ulcer Cleansing Rinsed/ Irrigated with Saline -Foul Odor after Cleansing No -Bioengineered Tissue Yes -Type of Bioengineered Tissue Epifix -Expiration Date 12/17/24 -Product Lot Number [id number] -Percent Used 100 -Saline Lot Number [id number] -Bleeding Controlled with Pressure -Offloading Yes -Type of Offloading Total Contact Cast (TCC) - Right ($) -Treatment Response Procedure Tolerated Well -Debridement - Subq, 1st 20sq cm Yes -Apply Skin Sub - each addt'l 25 sq 1 cm - Feet -Epifix (per sq cm) 1 [See Physician Procedure note for Specifics] Pain Scale: 0-10 Numeric [Pain] -Is Patient Pain Free? Yes - Nurse 3 - General Ulcer D/C NN Start: 05/05/20 19:26 Freq: Status: Active Protocol: Activity Type Activity Date Activity User E-Sign Co-Sign Detail Recorded Client Recorded Date Recorded By Document 05/06/20 09:50 [facility] [id number] 05/06/20 09:53 [facility] 05/06/20 09:50 Wound Care Nurse 3 [Wound Dressing] #3 R Plantar Lat -Other Dressing epifix per md #2 R Plantar Med -Other Dressing epifix per md -Other Covering TCC under cast applied per d nasir educational administration teacher [Compression Applied] Right -Other tcc undercast applied per d nasir [Post Procedure Tolerated] -Treatment Response Procedure Tolerated Well Pain Scale: 0-10 Numeric [Pain] -Is Patient Pain Free? Yes - Visit Discharge [Visit Discharge Information] -Discharge Condition Stable -Ambulatory Status Ambulatory -Transportation Private Auto Musculoskeletal: No Tenderness to Palpation of Joints or Extremities, Muscle Wasting, - - Dorsal contraction of lesser toes consistent with hammertoes and prominent metatarsal heads noted Neurological: - - Lack of normal epicritic sensation light touch is consistent with neuropathy status Psych/Mental Status: Normal Affect, Appropriate Debridement Note Post-Debridement Measurements/Treatment - Nurse 2 - General Ulcer CM Notes Start: 05/05/20 19:26 Freq: Status: Active Protocol: Activity Type Activity Date Activity User E-Sign Co-Sign Detail Recorded Client Recorded Date Recorded By Document 05/06/20 10:29 [id number] 05/06/20 10:33 05/06/20 10:29 Wound Center Nurse 2 #3 R Plantar Lat -Time 10:29 -Correct Patient Yes -Correct Side, Site, Position Yes -Correct Procedure Yes -Procedure Performed Yes -Type of Procedure Debridement -Clinical Debridement Subcutaneous -Tissue Removed Subcutaneous -Post Debridement (cm) - Length 1.6 -Post Debridement (cm) - Width 1.9 -Post Debridement (cm) - Depth 0.2 -Total Square (Post) (cm) 3.04 -Area of Debridement (cm) - Length 1.6 -Area of Debridement (cm) - Width 1.9 -Total Square (Area) (cm) 3.04 -Tunneling No -Undermining/Tunneling No -Circular Undermining No -Wound/Ulcer Outcome Not Healed -Ulcer Cleansing Rinsed/ Irrigated with Saline -Foul Odor after Cleansing No -Bioengineered Tissue Yes -Type of Bioengineered Tissue Epifix -Expiration Date 12/17/24 -Product Lot Number [id number] -Percent Used 100 -Saline Lot Number [id number] -Bleeding Controlled with Pressure -Offloading Yes -Type of Offloading Total Contact Cast (TCC) - Right ($) -Debridement - Subq, 1st 20sq cm Yes -Apply Skin Sub - each addt'l 25 sq cm 1 - Feet -Epifix (per sq cm) 4 #2 R Plantar Med -Time 10:31 -Correct Patient Yes -Correct Side, Site, Position Yes -Correct Procedure Yes -Procedure Performed Yes -Type of Procedure Debridement -Clinical Debridement Subcutaneous -Tissue Removed Subcutaneous -Post Debridement (cm) - Length 1.6 -Post Debridement (cm) - Width 1.9 -Post Debridement (cm) - Depth 0.2 -Total Square (Post) (cm) 3.04 -Area of Debridement (cm) - Length 1.6 -Area of Debridement (cm) - Width 1.9 -Total Square (Area) (cm) 3.04 -Tunneling No -Undermining/Tunneling No -Circular Undermining No -Wound/Ulcer Outcome Not Healed -Ulcer Cleansing Rinsed/ Irrigated with Saline -Foul Odor after Cleansing No -Bioengineered Tissue Yes -Type of Bioengineered Tissue Epifix -Expiration Date 12/17/24 -Product Lot Number [id number] -Percent Used 100 -Saline Lot Number [id number] -Bleeding Controlled with Pressure -Offloading Yes -Type of Offloading Total Contact Cast (TCC) - Right ($) -Treatment Response Procedure Tolerated Well -Debridement - Subq, 1st 20sq cm Yes -Apply Skin Sub - each addt'l 25 sq cm 1 - Feet -Epifix (per sq cm) 1 Pain Scale: 0-10 Numeric Is Patient Pain Free? Yes - Nurse 3 - General Ulcer D/C NN Start: 05/05/20 19:26 Freq: Status: Active Protocol: Activity Type Activity Date Activity User E-Sign Co-Sign Detail Recorded Client Recorded Date Recorded By Document 05/06/20 09:50 [facility] [id number] 05/06/20 09:53 BM 05/06/20 09:50 Wound Care Nurse 3 #3 R Plantar Lat -Other Dressing epifix per md #2 R Plantar Med -Other Dressing epifix per md -Other Covering TCC under cast applied per d nasir educational administration teacher Right -Other tcc undercast applied per d nasir Treatment Response Procedure Tolerated Well Pain Scale: 0-10 Numeric Is Patient Pain Free? Yes - Visit Discharge Discharge Condition Stable Ambulatory Status Ambulatory Transportation Private Auto Wound debrided: sub 1st metatarsal head and plantar lateral forefoot Laterality: Right Wound Grade/Stage: grade 1 Type of Debridement: Excisional debridement Anesthesia Used: 5% Lidocaine Gel Depth: in the subcutaneous layer Percentage of wound debrided: 100 Instrument Used: #15 blade Tissue Removed: fibrous, devitalized subcutaneous, biofilm, slough Severity: Fat Layer Exposed Amount of bleeding with debridement: Mild Bleeding Controlled with: Pressure Patient tolerated procedure well Assessment/Plan Active Problems (Last Reviewed 05/04/20 @ 18:36 by Nora Jack NP-C) Hammer toe of right foot (Chronic) with prominent metatarsal heads Delayed wound healing (Chronic) Ulcer of right foot with fat layer exposed (Chronic) Type 2 diabetes mellitus with diabetic polyneuropathy (Chronic) Assessment: plantar right foot ulcer, grade 1. cellulitis right foot resolved. delayed wound healing. diabetes with neuropathy Plan: I reviewed and discussed his case. His cellulitis appears to be resolved compared to his recent inpatient status. Subcutaneous excisional debridement was performed as noted in the clinical panel. I recommend he offload more with a total contact cast. Therefore, I recommend application of advanced wound healing product, epi-fix. This is medically necessary for limb salvage and he is failed other conservative standard of care treatment plans. The indication, benefits, anticipated application and healing time and management were reviewed. He is amenable to proceed. This was applied today according to standard protocol and was secured in place with a wound veil and Steri-Strips. Verbal consent was obtained and he tolerated this well. Following this application a secondary dressing was applied. Verbal consent was also obtained for application of total contact cast as the gold standard for offloading. This was applied according standard protocol in a rectus position and well-padded manner. He tolerated this well. He was advised to keep all of this clean, dry, and intact until follow-up next week. He understands he is not permitted to drive with right lower extremity cast in place. I reviewed his noninvasive vascular studies which do not demonstrate gross abnormalities. There is potential small vessel abnormalities in a vascular referral will be performed if he has continued delayed in healing. His venous Doppler exams also reviewed reviewed including reflux evaluation he does have venous insufficiency. He was advised to wear compression dressing. To elevate limbs at rest. To perform manual muscular contraction hourly while awake. To avoid salt in the diet. Referral will be performed to the automation controls specialist if continued nonhealing occurs. He is advised to continue to work on maintaining an appropriate diet and glucose management to optimize healing. I recommended nutritional supplementation as well. To return to the wound healing center in 1 week or call sooner if he has any return of infection signs. I do not recommend antibiotics at this time.
[2020-05-13 10:15] VITALS: BP 156/75; PULSE 67; RESP 20; TEMP 36.4; BMI 35.9
--- NOTE | 2020-05-13 11:22 | PN.PCM_ITS ---
(1) Delayed wound healing Status: Chronic Current Visit: Yes Code(s): T14.8XXD - Other injury of unspecified body region, subsequent encounter (2) Ulcer of right foot with fat layer exposed Status: Chronic Current Visit: Yes Code(s): L97.512 - Non-pressure chronic ulcer of other part of right foot with fat layer exposed (3) Type 2 diabetes mellitus with diabetic polyneuropathy Status: Chronic Current Visit: Yes Code(s): E11.42 - Type 2 diabetes mellitus with diabetic polyneuropathy (4) Cellulitis of right foot Status: Resolved Current Visit: Yes Code(s): L03.115 - Cellulitis of right lower limb (5) Hammer toe of right foot Status: Chronic Current Visit: Yes Code(s): M20.41 - Other hammer toe(s) (acquired), right foot Comment: with prominent metatarsal heads Type of Wound Date of Service: 05/13/20 Chief Complaint: right foot ulcers History of Wound: He is following up for chronic right foot ulcers. In the recent setting, he was seen in the hospitalized setting and was treated for cellulitis. This has resolved and he is no longer on antibiotics. He denies redness or drainage. He kept his total contact cast clean and intact last week. He denies fever, chill, nausea, vomiting. He denies getting the cast wet even though his foot is macerated. Progress of Wound: Improving - Physical Exam Vital Signs Temp Pulse Resp BP 97.5 F L 67 20 H 156/75 H 05/13/20 10:15 05/13/20 10:15 05/13/20 10:15 05/13/20 10:15 General: Alert, Oriented x3, Cooperative, No apparent distress HEENT: Atraumatic Extremities: No cyanosis, Capillary Refill Less than 3 Seconds, No Calf Tenderness, Diminished Peripheral Pulses, Edema Skin: Ulcer/ Wound - No purulence, erythema, streaking, odor, infection. The peripheral skin is hairless and atrophic. There was macerated tissue noted with total contact cast removal however after cleansing and rest during his office visit this is basically resolved. There is no interdigital maceration, necrosis, or deep tissue exposure. Peripheral epithelialization is noted and also improvement in ulcer base granulation tissue Wound Measurements and Assessment WC - Nurse 1 - General Ulcer Measurement Start: 04/29/20 08:52 Freq: Status: Active Protocol: Activity Type Activity Date Activity User E-Sign Co-Sign Detail Recorded Client Recorded Date Recorded By Document 05/13/20 10:15 DL [id number] 05/13/20 10:35 DL 05/13/20 10:15 Wound Center Nurse 1 [Ulcer Assessment] #3 R Plantar Lat -Current Size (cm) - Length 0.9 -Current Size (cm) - Width 1.7 -Current Size (cm) - Depth 0.2 -Total Square Cm 1.53 -Photo Taken No -Exudate Amt Medium -Exudate Type Serosanguineous -Wound Margin Distinct, Outline Attached -Granulation Amt Large (67-100%) -Granulation Quality Frank -Necrosis Amt Small (1-33%) -Necrotic Tissue Type Adherent Slough -Structure Exposed N/A -Texture (Kathia-wound Skin Appearance) Callus,Scarring -Moisture (Kathia-wound Skin Appearance Maceration ) -Color (Kathia-wound Skin Appearance) No Abnormality -Temperature (Kathia-wound Skin No Abnormality Appearance) (Pt Warm) -Tenderness on Palpation (Kathia-wound No Skin Appearance) -Ulcer Cleansing Wound Cleanser -Foul Odor after Cleansing No -Anesthetic Used 4% Lidocaine Solution #2 R Plantar Med -Current Size (cm) - Length 0.5 -Current Size (cm) - Width 0.5 -Current Size (cm) - Depth 0.1 -Total Square Cm 0.25 -Photo Taken No -Exudate Amt Medium -Exudate Type Serosanguineous -Wound Margin Distinct, Outline Attached -Granulation Amt Small (1-33%) -Granulation Quality Frank -Necrosis Amt Small (1-33%) -Necrotic Tissue Type Adherent Slough -Structure Exposed N/A -Texture (Kathia-wound Skin Appearance) Callus,Scarring -Moisture (Kathia-wound Skin Appearance Maceration ) -Color (Kathia-wound Skin Appearance) No Abnormality -Temperature (Kathia-wound Skin No Abnormality Appearance) (Pt Warm) -Tenderness on Palpation (Kathia-wound No Skin Appearance) -Ulcer Cleansing Wound Cleanser -Foul Odor after Cleansing No -Anesthetic Used 4% Lidocaine Solution WC - Nurse 2 - General Ulcer CM Notes Start: 05/05/20 19:26 Freq: Status: Active Protocol: Activity Type Activity Date Activity User E-Sign Co-Sign Detail Recorded Client Recorded Date Recorded By Document 05/13/20 10:53 SALUD [id number] 05/13/20 10:56 SALUD 05/13/20 10:53 Wound Center Nurse 2 [Procedure/Treatment] #3 R Plantar Lat -Time 10:53 -Correct Patient Yes -Correct Side, Site, Position Yes -Correct Procedure Yes -Procedure Performed Yes -Type of Procedure Debridement -Clinical Debridement Subcutaneous -Tissue Removed Subcutaneous -Post Debridement (cm) - Length 1 -Post Debridement (cm) - Width 1.7 -Post Debridement (cm) - Depth 0.2 -Total Square (Post) (cm) 1.7 -Area of Debridement (cm) - Length 1.0 -Area of Debridement (cm) - Width 1.7 -Total Square (Area) (cm) 1.70 -Tunneling No -Undermining/Tunneling No -Circular Undermining No -Wound/Ulcer Outcome Not Healed -Ulcer Cleansing Rinsed/ Irrigated with Saline -Foul Odor after Cleansing No -Bioengineered Tissue Yes -Type of Bioengineered Tissue Epifix -Expiration Date 01/16/25 -Product Lot Number [id number] -Percent Used 100 -Saline Lot Number [id number] -Bleeding Controlled with Pressure -Offloading Yes -Type of Offloading Total Contact Cast (TCC) - Right ($) -Treatment Response Procedure Tolerated Well -Debridement - Subq, 1st 20sq cm No -Epifix (per sq cm) 4 #2 R Plantar Med -Time 10:54 -Correct Patient Yes -Correct Side, Site, Position Yes -Correct Procedure Yes -Procedure Performed Yes -Type of Procedure Debridement -Clinical Debridement Subcutaneous -Tissue Removed Subcutaneous -Post Debridement (cm) - Length 0.6 -Post Debridement (cm) - Width 0.6 -Post Debridement (cm) - Depth 0.1 -Total Square (Post) (cm) 0.36 -Area of Debridement (cm) - Length 0.6 -Area of Debridement (cm) - Width 0.6 -Total Square (Area) (cm) 0.36 -Tunneling No -Undermining/Tunneling No -Circular Undermining No -Wound/Ulcer Outcome Not Healed -Ulcer Cleansing Rinsed/ Irrigated with Saline -Foul Odor after Cleansing No -Bioengineered Tissue Yes -Type of Bioengineered Tissue Epifix -Expiration Date 01/16/25 -Product Lot Number [id number] -Percent Used 100 -Saline Lot Number [id number] -Bleeding Controlled with Pressure -Offloading Yes -Type of Offloading Total Contact Cast (TCC) - Right ($) -Debridement - Subq, 1st 20sq cm No -Epifix (per sq cm) 0 [See Physician Procedure note for Specifics] Pain Scale: 0-10 Numeric [Pain] -Is Patient Pain Free? Yes Musculoskeletal: No Tenderness to Palpation of Joints or Extremities, Muscle Wasting, - - Prominent metatarsal heads with dorsal contracture lesser toes Neurological: - - Lack of normal epicritic sensation is consistent with neuropathy status Psych/Mental Status: Normal Affect, Appropriate Debridement Note Post-Debridement Measurements/Treatment WC - Nurse 2 - General Ulcer CM Notes Start: 05/05/20 19:26 Freq: Status: Active Protocol: Activity Type Activity Date Activity User E-Sign Co-Sign Detail Recorded Client Recorded Date Recorded By Document 05/06/20 10:29 [id number] 05/06/20 10:33 Document 05/06/20 10:29 [id number] 05/07/20 08:53 PL Document 05/13/20 10:53 [id number] 05/13/20 10:56 05/06/20 05/06/20 05/13/20 10:29 10:29 10:53 Wound Center Nurse 2 #3 R Plantar Lat -Time 10:29 10:53 -Correct Patient Yes Yes -Correct Side, Site, Position Yes Yes -Correct Procedure Yes Yes -Procedure Performed Yes Yes -Type of Procedure Debridement Debridement -Clinical Debridement Subcutaneous Subcutaneous -Tissue Removed Subcutaneous Subcutaneous -Post Debridement (cm) - Length 1.6 1 -Post Debridement (cm) - Width 1.9 1.7 -Post Debridement (cm) - Depth 0.2 0.2 -Total Square (Post) (cm) 3.04 1.7 -Area of Debridement (cm) - Length 1.6 1.0 -Area of Debridement (cm) - Width 1.9 1.7 -Total Square (Area) (cm) 3.04 1.70 -Tunneling No No -Undermining/Tunneling No No -Circular Undermining No No -Wound/Ulcer Outcome Not Healed Not Healed -Ulcer Cleansing Rinsed/ Rinsed/ Irrigated with Irrigated with Saline Saline -Foul Odor after Cleansing No No -Bioengineered Tissue Yes Yes -Type of Bioengineered Tissue Epifix Epifix -Expiration Date 12/17/24 01/16/25 -Product Lot Number [id number] -Percent Used 100 100 -Saline Lot Number [id number] -Bleeding Controlled with Pressure Pressure -Offloading Yes Yes -Type of Offloading Total Contact Total Contact Cast (TCC) - Cast (TCC) - Right ($) Right ($) -Treatment Response Procedure Tolerated Well -Debridement - Subq, 1st 20sq cm Yes No -Apply Skin Sub - 1st 25 sq cm - Feet 1 -Epifix (per sq cm) 3 4 #2 R Plantar Med -Time 10:31 10:54 -Correct Patient Yes Yes -Correct Side, Site, Position Yes Yes -Correct Procedure Yes Yes -Procedure Performed Yes Yes -Type of Procedure Debridement Debridement -Clinical Debridement Subcutaneous Subcutaneous -Tissue Removed Subcutaneous Subcutaneous -Post Debridement (cm) - Length 1.6 0.6 -Post Debridement (cm) - Width 1.9 0.6 -Post Debridement (cm) - Depth 0.2 0.1 -Total Square (Post) (cm) 3.04 0.36 -Area of Debridement (cm) - Length 1.6 0.6 -Area of Debridement (cm) - Width 1.9 0.6 -Total Square (Area) (cm) 3.04 0.36 -Tunneling No No -Undermining/Tunneling No No -Circular Undermining No No -Wound/Ulcer Outcome Not Healed Not Healed -Ulcer Cleansing Rinsed/ Rinsed/ Irrigated with Irrigated with Saline Saline -Foul Odor after Cleansing No No -Bioengineered Tissue Yes Yes -Type of Bioengineered Tissue Epifix Epifix -Expiration Date 12/17/24 01/16/25 -Product Lot Number [id number] -Percent Used 100 100 -Saline Lot Number [id number] -Bleeding Controlled with Pressure Pressure -Offloading No Yes -Type of Offloading Total Contact Cast (TCC) - Right ($) -Treatment Response Procedure Tolerated Well -Debridement - Subq, 1st 20sq cm No No -Epifix (per sq cm) 1 0 Pain Scale: 0-10 Numeric Is Patient Pain Free? Yes Yes WC - Nurse 3 - General Ulcer D/C NN Start: 05/05/20 19:26 Freq: Status: Active Protocol: Activity Type Activity Date Activity User E-Sign Co-Sign Detail Recorded Client Recorded Date Recorded By Document 05/06/20 09:50 [facility] [id number] 05/06/20 09:53 BM 05/06/20 09:50 Wound Care Nurse 3 #3 R Plantar Lat -Other Dressing epifix per md #2 R Plantar Med -Other Dressing epifix per md -Other Covering TCC under cast applied per d nasir fire captain Right -Other tcc undercast applied per d nasir Treatment Response Procedure Tolerated Well Pain Scale: 0-10 Numeric Is Patient Pain Free? Yes WC - Visit Discharge Discharge Condition Stable Ambulatory Status Ambulatory Transportation Private Auto Wound debrided: plantar lateral metatarsal head and plantar 1st metatarsal head Laterality: Right Wound Grade/Stage: grade 1 Type of Debridement: Excisional debridement Anesthesia Used: 5% Lidocaine Gel Depth: in the subcutaneous layer Percentage of wound debrided: 100 Instrument Used: #15 blade Tissue Removed: fibrous, devitalized subcutaneous, biofilm, slough Severity: Fat Layer Exposed Amount of bleeding with debridement: Mild Bleeding Controlled with: Pressure Patient tolerated procedure well Assessment/Plan Active Problems (Last Reviewed 05/04/20 @ 18:36 by Nora Jack NP-C) Hammer toe of right foot (Chronic) with prominent metatarsal heads Delayed wound healing (Chronic) Ulcer of right foot with fat layer exposed (Chronic) Type 2 diabetes mellitus with diabetic polyneuropathy (Chronic) Assessment: plantar right foot ulcer, grade 1. cellulitis right foot resolved. delayed wound healing. diabetes with neuropathy Plan: I reviewed and discussed his case. His cellulitis appears to be resolved compared to his recent inpatient status. Subcutaneous excisional debridement was performed as noted in the clinical panel. I recommend he offload more with a total contact cast. Therefore, I recommend application of advanced wound healing product, epi-fix. This is medically necessary for limb salvage and he is failed other conservative standard of care treatment plans. The indication, benefits, anticipated application and healing time and management were reviewed. He is amenable to proceed. This was applied today according to standard protocol and was secured in place with a wound veil and Steri-Strips. Verbal consent was obtained and he tolerated this well. Following this application a secondary dressing was applied. Verbal consent was also obtained for application of total contact cast as the gold standard for offloading. This was applied according standard protocol in a rectus position and well-padded manner. He tolerated this well. He was advised to keep all of this clean, dry, and intact until follow-up next week. I advised him to avoid activities that cause excessive foot sweating and also to make sure his shower bag is sealed properly. He understands he is not permitted to drive with right lower extrem ity cast in place. I reviewed his noninvasive vascular studies which do not demonstrate gross abnormalities. There is potential small vessel abnormalities in a vascular referral will be performed if he has continued delayed in healing. His venous Doppler exams also reviewed reviewed including reflux evaluation he does have venous insufficiency. He was advised to wear compression dressing. To elevate limbs at rest. To perform manual muscular contraction hourly while awake. To avoid salt in the diet. Referral will be performed to the hand iii cutter via nutritional services will be pursued if nonhealing continues. He is advised to continue to work on maintaining an appropriate diet and glucose management to optimize healing. I recommended nutritional supplementation as well. To return to the wound healing center in 1 week or call sooner if he has any return of infection signs. He is reassured no infection is noted today and I do not recommend additional antibiotics.
== END 2020-05-18 23:59 ==
LOC: WC 10:00
PROVIDERS: PCP Nurse Practitioner; Referring Provider Podiatrist; Visit Provider Podiatrist
DX: E11.621 Type 2 diabetes mellitus with foot ulcer (principal); L97.512 Non-pressure chronic ulcer of other part of right foot with fat layer exposed; E11.42 Type 2 diabetes mellitus with diabetic polyneuropathy; M20.41 Other hammer toe(s) (acquired), right foot; I87.2 Venous insufficiency (chronic) (peripheral)
CPT/HCPCS: 11042; 15275; 15276; 29445; 99213; Q4186; G0463

== ENCOUNTER 2020-06-17 09:45 | Outpatient (RCR) | payer MEDICAID, SELFPAY ==
[2020-05-19 00:46] VITALS: BP 156/75; PULSE 67; RESP 20; TEMP 36.4; BMI 37.1
[2020-05-20 11:17] VITALS: BP 156/78; PULSE 68; RESP 18; TEMP 35.9; BMI 37.1
--- NOTE | 2020-05-20 14:50 | PCM.WC.PN ---
(1) Ulcer of right foot with fat layer exposed Status: Chronic Code(s): L97.512 - Non-pressure chronic ulcer of other part of right foot with fat layer exposed (2) Hammer toe of right foot Status: Chronic Code(s): M20.41 - Other hammer toe(s) (acquired), right foot Comment: with prominent metatarsal heads (3) Delayed wound healing Status: Chronic Code(s): T14.8XXD - Other injury of unspecified body region, subsequent encounter (4) Type 2 diabetes mellitus with diabetic polyneuropathy Status: Chronic Code(s): E11.42 - Type 2 diabetes mellitus with diabetic polyneuropathy Type of Wound Date of Service: 05/20/20 Chief Complaint: right foot ulcers History of Wound: He is following up for chronic right foot ulcers. He denies redness or drainage. He kept his total contact cast clean and intact last week. He denies fever, chill, nausea, vomiting. Progress of Wound: Improving - Physical Exam Vital Signs Temp Pulse Resp BP 96.6 F L 68 18 156/78 H 05/20/20 11:17 05/20/20 11:17 05/20/20 11:17 05/20/20 11:17 General: Alert, Oriented x3, Cooperative, No apparent distress HEENT: Atraumatic Extremities: No cyanosis, Capillary Refill Less than 3 Seconds, No Calf Tenderness, Edema Skin: Ulcer/ Wound - No purulence, erythema, string, odor, infection. Adjacent skin is hairless and atrophic. There is significant peripheral epithelialization noted to all ulcer sites. Wound Measurements and Assessment WC - Nurse 1 - General Ulcer Measurement Start: 05/20/20 11:17 Freq: Status: Active Protocol: Activity Type Activity Date Activity User E-Sign Co-Sign Detail Recorded Client Recorded Date Recorded By Document 05/20/20 11:17 DL [id number] 05/20/20 11:31 DL 05/20/20 11:17 Wound Center Nurse 1 [Ulcer Assessment] #3 R Plantar Lat -Current Size (cm) - Length 0.7 -Current Size (cm) - Width 0.9 -Current Size (cm) - Depth 0.1 -Total Square Cm 0.63 -Photo Taken No -Exudate Amt Medium -Exudate Type Serosanguineous -Wound Margin Thickened -Granulation Amt Large (67-100%) -Granulation Quality [place] -Necrosis Amt Small (1-33%) -Necrotic Tissue Type Adherent Slough -Structure Exposed N/A -Texture (Kathia-wound Skin Appearance) Scarring -Moisture (Kathia-wound Skin Appearance Maceration ) -Color (Kathia-wound Skin Appearance) No Abnormality -Temperature (Kathia-wound Skin No Abnormality Appearance) (Pt Warm) -Tenderness on Palpation (Kathia-wound No Skin Appearance) -Ulcer Cleansing Wound Cleanser -Foul Odor after Cleansing No -Anesthetic Used 4% Lidocaine Solution #2 R Plantar Med -Current Size (cm) - Length 0.2 -Current Size (cm) - Width 0.3 -Current Size (cm) - Depth 0.1 -Total Square Cm 0.06 -Photo Taken No -Exudate Amt Small -Exudate Type Serosanguineous -Wound Margin Distinct, Outline Attached -Granulation Amt Small (1-33%) -Granulation Quality [place] -Necrosis Amt Small (1-33%) -Necrotic Tissue Type Adherent Slough -Structure Exposed N/A -Texture (Kathia-wound Skin Appearance) Scarring -Moisture (Kathia-wound Skin Appearance Maceration ) -Color (Kathia-wound Skin Appearance) No Abnormality -Temperature (Kathia-wound Skin No Abnormality Appearance) (Pt Warm) -Tenderness on Palpation (Kathia-wound No Skin Appearance) -Ulcer Cleansing Wound Cleanser -Foul Odor after Cleansing No -Anesthetic Used 4% Lidocaine Solution WC - Nurse 2 - General Ulcer CM Notes Start: 05/20/20 11:17 Freq: Status: Active Protocol: Activity Type Activity Date Activity User E-Sign Co-Sign Detail Recorded Client Recorded Date Recorded By Document 05/20/20 11:37 [id number] [id number] 05/20/20 11:41 SALUD 05/20/20 11:37 Wound Center Nurse 2 [Procedure/Treatment] #3 R Plantar Lat -Time 11:39 -Correct Patient Yes -Correct Side, Site, Position Yes -Correct Procedure Yes -Procedure Performed Yes -Type of Procedure Debridement -Clinical Debridement Subcutaneous -Tissue Removed Subcutaneous -Post Debridement (cm) - Length 0.8 -Post Debridement (cm) - Width 0.9 -Post Debridement (cm) - Depth 0.1 -Total Square (Post) (cm) 0.72 -Area of Debridement (cm) - Length 0.8 -Area of Debridement (cm) - Width 0.9 -Total Square (Area) (cm) 0.72 -Tunneling No -Undermining/Tunneling No -Circular Undermining No -Wound/Ulcer Outcome Not Healed -Ulcer Cleansing Rinsed/ Irrigated with Saline -Foul Odor after Cleansing No -Bioengineered Tissue Yes -Type of Bioengineered Tissue Epifix 18mm Disc -Expiration Date 01/16/25 -Product Lot Number [id number] -Percent Used 100 -Saline Lot Number [id number] -Bleeding Controlled with Pressure -Offloading Yes -Type of Offloading Total Contact Cast (TCC) - Right ($) -Debridement - Subq, 1st 20sq cm No -Epifix 18mm Disc 3 Query Text:18mm = 3 #2 R Plantar Med -Time 11:40 -Correct Patient Yes -Correct Side, Site, Position Yes -Correct Procedure Yes -Procedure Performed Yes -Type of Procedure Debridement -Clinical Debridement Subcutaneous -Tissue Removed Subcutaneous -Post Debridement (cm) - Length 0.2 -Post Debridement (cm) - Width 0.3 -Post Debridement (cm) - Depth 0.1 -Total Square (Post) (cm) 0.06 -Area of Debridement (cm) - Length 0.2 -Area of Debridement (cm) - Width 0.3 -Total Square (Area) (cm) 0.06 -Tunneling No -Undermining/Tunneling No -Circular Undermining No -Wound/Ulcer Outcome Not Healed -Ulcer Cleansing Rinsed/ Irrigated with Saline -Foul Odor after Cleansing No -Bioengineered Tissue Yes -Type of Bioengineered Tissue Epifix 18mm Disc -Expiration Date 01/16/25 -Product Lot Number [id number] -Percent Used 100 -Saline Lot Number [id number] -Bleeding Controlled with Pressure -Offloading Yes -Type of Offloading Total Contact Cast (TCC) - Right ($) -Treatment Response Procedure Tolerated Well -Debridement - Subq, 1st 20sq cm No -Epifix 18mm Disc 3 Query Text:18mm = 3 [See Physician Procedure note for Specifics] Pain Scale: 0-10 Numeric [Pain] -Is Patient Pain Free? Yes WC - Nurse 3 - General Ulcer D/C NN Start: 05/20/20 11:17 Freq: Status: Active Protocol: Activity Type Activity Date Activity User E-Sign Co-Sign Detail Recorded Client Recorded Date Recorded By Document 05/20/20 11:57 RB [id number] 05/20/20 11:58 RB 05/20/20 11:57 Wound Care Nurse 3 [Wound Dressing] #3 R Plantar Lat -Other Dressing primary layer TCC #2 R Plantar Med -Other Dressing primary layer TCC [Post Procedure Tolerated] -Treatment Response Procedure Tolerated Well Pain Scale: 0-10 Numeric [Pain] -Is Patient Pain Free? Yes WC - Visit Discharge [Visit Discharge Information] -Discharge Condition Stable -Ambulatory Status Cane -Transportation Private Auto -Medication Reconcilliation completed No & provided to patient/care provider -Clinical Summary of Care Provided Yes Musculoskeletal: No Tenderness to Palpation of Joints or Extremities, Muscle Wasting, - - Prominent metatarsal head and dorsal contraction of lesser toes Neurological: - - Lack of normal epicritic sensation light touch is consistent with neuropathy status Psych/Mental Status: Normal Affect, Appropriate Debridement Note Post-Debridement Measurements/Treatment WC - Nurse 2 - General Ulcer CM Notes Start: 05/20/20 11:17 Freq: Status: Active Protocol: Activity Type Activity Date Activity User E-Sign Co-Sign Detail Recorded Client Recorded Date Recorded By Document 05/20/20 11:37 JF [id number] 05/20/20 11:41 05/20/20 11:37 Wound Center Nurse 2 #3 R Plantar Lat -Time 11:39 -Correct Patient Yes -Correct Side, Site, Position Yes -Correct Procedure Yes -Procedure Performed Yes -Type of Procedure Debridement -Clinical Debridement Subcutaneous -Tissue Removed Subcutaneous -Post Debridement (cm) - Length 0.8 -Post Debridement (cm) - Width 0.9 -Post Debridement (cm) - Depth 0.1 -Total Square (Post) (cm) 0.72 -Area of Debridement (cm) - Length 0.8 -Area of Debridement (cm) - Width 0.9 -Total Square (Area) (cm) 0.72 -Tunneling No -Undermining/Tunneling No -Circular Undermining No -Wound/Ulcer Outcome Not Healed -Ulcer Cleansing Rinsed/ Irrigated with Saline -Foul Odor after Cleansing No -Bioengineered Tissue Yes -Type of Bioengineered Tissue Epifix 18mm Disc -Expiration Date 01/16/25 -Product Lot Number [id number] -Percent Used 100 -Saline Lot Number [id number] -Bleeding Controlled with Pressure -Offloading Yes -Type of Offloading Total Contact Cast (TCC) - Right ($) -Debridement - Subq, 1st 20sq cm No -Epifix 18mm Disc 3 Query Text:18mm = 3 #2 R Plantar Med -Time 11:40 -Correct Patient Yes -Correct Side, Site, Position Yes -Correct Procedure Yes -Procedure Performed Yes -Type of Procedure Debridement -Clinical Debridement Subcutaneous -Tissue Removed Subcutaneous -Post Debridement (cm) - Length 0.2 -Post Debridement (cm) - Width 0.3 -Post Debridement (cm) - Depth 0.1 -Total Square (Post) (cm) 0.06 -Area of Debridement (cm) - Length 0.2 -Area of Debridement (cm) - Width 0.3 -Total Square (Area) (cm) 0.06 -Tunneling No -Undermining/Tunneling No -Circular Undermining No -Wound/Ulcer Outcome Not Healed -Ulcer Cleansing Rinsed/ Irrigated with Saline -Foul Odor after Cleansing No -Bioengineered Tissue Yes -Type of Bioengineered Tissue Epifix 18mm Disc -Expiration Date 01/16/25 -Product Lot Number [id number] -Percent Used 100 -Saline Lot Number [id number] -Bleeding Controlled with Pressure -Offloading Yes -Type of Offloading Total Contact Cast (TCC) - Right ($) -Treatment Response Procedure Tolerated Well -Debridement - Subq, 1st 20sq cm No -Epifix 18mm Disc 3 Query Text:18mm = 3 Pain Scale: 0-10 Numeric Is Patient Pain Free? Yes - Nurse 3 - General Ulcer D/C NN Start: 05/20/20 11:17 Freq: Status: Active Protocol: Activity Type Activity Date Activity User E-Sign Co-Sign Detail Recorded Client Recorded Date Recorded By Document 05/20/20 11:57 RB [id number] 05/20/20 11:58 RB 05/20/20 11:57 Wound Care Nurse 3 #3 R Plantar Lat -Other Dressing primary layer TCC #2 R Plantar Med -Other Dressing primary layer TCC Treatment Response Procedure Tolerated Well Pain Scale: 0-10 Numeric Is Patient Pain Free? Yes - Visit Discharge Discharge Condition Stable Ambulatory Status Cane Transportation Private Auto Medication Reconcilliation completed & No provided to patient/care provider Clinical Summary of Care Provided Yes Wound debrided: plantar lateral foot and sub first metatarsal head Laterality: Right Wound Grade/Stage: grade 1 Type of Debridement: Excisional debridement Anesthesia Used: 5% Lidocaine Gel Depth: in the subcutaneous layer Percentage of wound debrided: 100 Instrument Used: #15 blade Tissue Removed: fibrous, devitalized subcutaneous, biofilm, slough Severity: Fat Layer Exposed Amount of bleeding with debridement: Mild Bleeding Controlled with: Pressure Patient tolerated procedure well Assessment/Plan Assessment: plantar right foot ulcer, grade 1. cellulitis right foot resolved. delayed wound healing. diabetes with neuropathy Plan: I reviewed and discussed his case. Subcutaneous excisional debridement was performed as noted in the clinical panel. I recommend he offload more with a total contact cast. Therefore, I recommend application of advanced wound healing product, epi-fix. This is medically necessary for limb salvage and he is failed other conservative standard of care treatment plans. The indication, benefits, anticipated application and healing time and management were reviewed. He is amenable to proceed. This was applied today according to standard protocol and was secured in place with a wound veil and Steri-Strips. Verbal consent was obtained and he tolerated this well. Following this application a secondary dressing was applied. Verbal consent was also obtained for application of total contact cast as the gold standard for offloading. This was applied according standard protocol in a rectus position and well-padded manner. He tolerated this well. He was advised to keep all of this clean, dry, and intact until follow-up next week. I advised him to avoid activities that cause excessive foot sweating and also to make sure his shower bag is sealed properly. He understands he is not permitted to drive with right lower extremity cast in place. I reviewed his noninvasive vascular studies which do not demonstrate gross abnormalities. There is potential small vessel abnormalities in a vascular referral will be performed if he has continued delayed in healing. His venous Doppler exams also reviewed reviewed including reflux evaluation he does have venous insufficiency. He was advised to wear compression dressing. To elevate limbs at rest. To perform manual muscular contraction hourly while awake. To avoid salt in the diet. Referral will be performed to the carpentry instructor via nutritional services will be pursued if nonhealing continues. He is advised to continue to work on maintaining an appropriate diet and glucose management to optimize healing. I recommended nutritional supplementation as well. To return to the wound healing center in 1 week or call sooner if he has any return of infection signs. He is reassured no infection is noted today and I do not recommend additional antibiotics.
[2020-05-27 13:00] VITALS: BP 165/89; PULSE 82; RESP 16; TEMP 36.4; BMI 37.1
--- NOTE | 2020-05-27 15:03 | PN.PCM_ITS ---
(1) Ulcer of right foot with fat layer exposed Status: Chronic Current Visit: Yes Code(s): L97.512 - Non-pressure chronic ulcer of other part of right foot with fat layer exposed (2) Hammer toe of right foot Status: Chronic Current Visit: Yes Code(s): M20.41 - Other hammer toe(s) (acquired), right foot Comment: with prominent metatarsal heads (3) Delayed wound healing Status: Chronic Current Visit: Yes Code(s): T14.8XXD - Other injury of unspecified body region, subsequent encounter (4) Type 2 diabetes mellitus with diabetic polyneuropathy Status: Chronic Current Visit: Yes Code(s): E11.42 - Type 2 diabetes mellitus with diabetic polyneuropathy Type of Wound Date of Service: 05/27/20 Chief Complaint: right foot ulcers History of Wound: He is following up for chronic right foot ulcers. He denies redness or drainage. He kept his total contact cast clean and intact last week. He denies fever, chill, nausea, vomiting. Progress of Wound: Improving - Physical Exam Vital Signs Temp Pulse Resp BP 97.5 F L 82 16 165/89 H 05/27/20 13:00 05/27/20 13:00 05/27/20 13:00 05/27/20 13:00 General: Alert, Oriented x3, Cooperative, No apparent distress HEENT: Atraumatic Extremities: No cyanosis, Capillary Refill Less than 3 Seconds, No Calf Tenderness, Diminished Peripheral Pulses, Edema - Decreased Skin: Ulcer/ Wound - No purulence, erythema, string, odor, infection. Adjacent skin is hairless and atrophic. There is full epithelialization noted sub-first metatarsal head ulcer site and this is healed Wound Measurements and Assessment WC - Nurse 1 - General Ulcer Measurement Start: 05/20/20 11:17 Freq: Status: Active Protocol: Activity Type Activity Date Activity User E-Sign Co-Sign Detail Recorded Client Recorded Date Recorded By Document 05/27/20 13:00 [facility] [id number] 05/27/20 13:10 [facility] 05/27/20 13:00 Wound Center Nurse 1 [Ulcer Assessment] #3 R Plantar Lat -Combined with other wound No -Current Size (cm) - Length 0.6 -Current Size (cm) - Width 0.6 -Current Size (cm) - Depth 0.2 -Total Square Cm 0.36 -Epithelialization Small 1-33% -Tunneling No -Undermining/Tunneling No -Circular Undermining No -Exudate Amt Small -Exudate Type Serosanguineous -Wound Margin Distinct, Outline Attached -Granulation Amt Large (67-100%) -Granulation Quality [place] -Slough/Fibrin No -Necrosis Amt None Present (0 %) -Texture (Kathia-wound Skin Appearance) Assessed, Scarring -Moisture (Kathia-wound Skin Appearance Assessed ) -Color (Kathia-wound Skin Appearance) Assessed -Temperature (Kathia-wound Skin No Abnormality Appearance) (Pt Warm) -Tenderness on Palpation (Kathia-wound No Skin Appearance) -Ulcer Cleansing soapy water -Foul Odor after Cleansing No -Anesthetic Used 4% Lidocaine Solution #2 R Plantar Med -Combined with other wound No -Current Size (cm) - Length 0.1 -Current Size (cm) - Width 0.1 -Current Size (cm) - Depth 0.1 -Total Square Cm 0.01 -Photo Taken No -Epithelialization Large 67-100% -Tunneling No -Undermining/Tunneling No -Circular Undermining No -Slough/Fibrin Yes -Necrosis Amt Small (1-33%) -Necrotic Tissue Type Adherent Slough -Texture (Kathia-wound Skin Appearance) Assessed, Scarring -Moisture (Kathia-wound Skin Appearance Assessed,Dry/ ) Scaly -Color (Kathia-wound Skin Appearance) Assessed -Temperature (Kathia-wound Skin No Abnormality Appearance) (Pt Warm) -Tenderness on Palpation (Kathia-wound No Skin Appearance) -Ulcer Cleansing soapy water -Foul Odor after Cleansing No -Anesthetic Used 4% Lidocaine Solution WC - Nurse 2 - General Ulcer CM Notes Start: 05/20/20 11:17 Freq: Status: Active Protocol: Activity Type Activity Date Activity User E-Sign Co-Sign Detail Recorded Client Recorded Date Recorded By Document 05/27/20 13:19 SALUD [id number] 05/27/20 13:21 SALUD 05/27/20 13:19 Wound Center Nurse 2 [Procedure/Treatment] #3 R Plantar Lat -Time 13:20 -Correct Patient Yes -Correct Side, Site, Position Yes -Correct Procedure Yes -Procedure Performed Yes -Type of Procedure Debridement -Clinical Debridement Subcutaneous -Tissue Removed Subcutaneous -Post Debridement (cm) - Length 0.6 -Post Debridement (cm) - Width 0.6 -Post Debridement (cm) - Depth 0.2 -Total Square (Post) (cm) 0.36 -Area of Debridement (cm) - Length 0.6 -Area of Debridement (cm) - Width 0.6 -Total Square (Area) (cm) 0.36 -Tunneling No -Undermining/Tunneling No -Circular Undermining No -Wound/Ulcer Outcome Not Healed -Ulcer Cleansing Rinsed/ Irrigated with Saline -Foul Odor after Cleansing No -Bioengineered Tissue Yes -Type of Bioengineered Tissue Epifix 18mm Disc -Expiration Date 01/16/25 -Product Lot Number [id number] -Percent Used 100 -Saline Lot Number [id number] -Bleeding Controlled with Pressure -Offloading Yes -Type of Offloading Total Contact Cast (TCC) - Right ($) -Debridement - Subq, 1st 20sq cm No -Apply Skin Sub - 1st 25 sq cm - Feet 1 -Epifix 18mm Disc 3 Query Text:18mm = 3 #2 R Plantar Med -Correct Patient No -Correct Side, Site, Position No -Correct Procedure No -Procedure Performed No -Post Debridement (cm) - Length 0 -Post Debridement (cm) - Width 0 -Post Debridement (cm) - Depth 0 -Total Square (Post) (cm) 0 -Area of Debridement (cm) - Length 0 -Area of Debridement (cm) - Width 0 -Total Square (Area) (cm) 0 -Wound/Ulcer Outcome Healed- Epithelialized [See Physician Procedure note for Specifics] Pain Scale: 0-10 Numeric [Pain] -Is Patient Pain Free? Yes WC - Nurse 3 - General Ulcer D/C NN Start: 05/20/20 11:17 Freq: Status: Active Protocol: Activity Type Activity Date Activity User E-Sign Co-Sign Detail Recorded Client Recorded Date Recorded By Document 05/27/20 13:41 RB [id number] 05/27/20 13:41 RB 05/27/20 13:41 Wound Care Nurse 3 [Wound Dressing] #3 R Plantar Lat -Other Dressing TCC primary layer [Post Procedure Tolerated] -Treatment Response Procedure Tolerated Well Pain Scale: 0-10 Numeric [Pain] -Is Patient Pain Free? Yes Teaching: Wound Center [Wound Center Education] (Items with an * have Printed Materials Available- Please identify what is given to patient under the Teaching materials given to patient and caregiver Section. Eliminating Foot Pressure -Person Taught Patient -Teaching Method Discussion, Demonstration -Response to teaching Verbalize understanding WC - Visit Discharge [Visit Discharge Information] -Discharge Condition Stable -Ambulatory Status Ambulatory -Transportation Private Auto -Medication Reconcilliation completed No & provided to patient/care provider -Clinical Summary of Care Provided Yes Musculoskeletal: No Tenderness to Palpation of Joints or Extremities, Muscle Wasting, - - Dorsal contraction of lesser toes with prominent metatarsal heads Neurological: - - Lack of epicritic sensation light touch is consistent with neuropathy status Psych/Mental Status: Normal Affect, Appropriate Debridement Note Post-Debridement Measurements/Treatment - Nurse 2 - General Ulcer CM Notes Start: 05/20/20 11:17 Freq: Status: Active Protocol: Activity Type Activity Date Activity User E-Sign Co-Sign Detail Recorded Client Recorded Date Recorded By Document 05/20/20 11:37 [id number] 05/20/20 11:41 Document 05/27/20 13:19 [id number] 05/27/20 13:21 05/20/20 05/27/20 11:37 13:19 Wound Center Nurse 2 #3 R Plantar Lat -Time 11:39 13:20 -Correct Patient Yes Yes -Correct Side, Site, Position Yes Yes -Correct Procedure Yes Yes -Procedure Performed Yes Yes -Type of Procedure Debridement Debridement -Clinical Debridement Subcutaneous Subcutaneous -Tissue Removed Subcutaneous Subcutaneous -Post Debridement (cm) - Length 0.8 0.6 -Post Debridement (cm) - Width 0.9 0.6 -Post Debridement (cm) - Depth 0.1 0.2 -Total Square (Post) (cm) 0.72 0.36 -Area of Debridement (cm) - Length 0.8 0.6 -Area of Debridement (cm) - Width 0.9 0.6 -Total Square (Area) (cm) 0.72 0.36 -Tunneling No No -Undermining/Tunneling No No -Circular Undermining No No -Wound/Ulcer Outcome Not Healed Not Healed -Ulcer Cleansing Rinsed/ Rinsed/ Irrigated with Irrigated with Saline Saline -Foul Odor after Cleansing No No -Bioengineered Tissue Yes Yes -Type of Bioengineered Tissue Epifix 18mm Epifix 18mm Disc Disc -Expiration Date 01/16/25 01/16/25 -Product Lot Number [id number] -Percent Used 100 100 -Saline Lot Number [id number] -Bleeding Controlled with Pressure Pressure -Offloading Yes Yes -Type of Offloading Total Contact Total Contact Cast (TCC) - Cast (TCC) - Right ($) Right ($) -Debridement - Subq, 1st 20sq cm No No -Apply Skin Sub - 1st 25 sq cm - Feet 1 -Epifix 18mm Disc 3 3 Query Text:18mm = 3 #2 R Plantar Med -Time 11:40 -Correct Patient Yes No -Correct Side, Site, Position Yes No -Correct Procedure Yes No -Procedure Performed Yes No -Type of Procedure Debridement -Clinical Debridement Subcutaneous -Tissue Removed Subcutaneous -Post Debridement (cm) - Length 0.2 0 -Post Debridement (cm) - Width 0.3 0 -Post Debridement (cm) - Depth 0.1 0 -Total Square (Post) (cm) 0.06 0 -Area of Debridement (cm) - Length 0.2 0 -Area of Debridement (cm) - Width 0.3 0 -Total Square (Area) (cm) 0.06 0 -Tunneling No -Undermining/Tunneling No -Circular Undermining No -Wound/Ulcer Outcome Not Healed Healed- Epithelialized -Ulcer Cleansing Rinsed/ Irrigated with Saline -Foul Odor after Cleansing No -Bioengineered Tissue Yes -Type of Bioengineered Tissue Epifix 18mm Disc -Expiration Date 01/16/25 -Product Lot Number [id number] -Percent Used 100 -Saline Lot Number [id number] -Bleeding Controlled with Pressure -Offloading Yes -Type of Offloading Total Contact Cast (TCC) - Right ($) -Treatment Response Procedure Tolerated Well -Debridement - Subq, 1st 20sq cm No -Epifix 18mm Disc 3 Query Text:18mm = 3 Pain Scale: 0-10 Numeric Is Patient Pain Free? Yes Yes WC - Nurse 3 - General Ulcer D/C NN Start: 05/20/20 11:17 Freq: Status: Active Protocol: Activity Type Activity Date Activity User E-Sign Co-Sign Detail Recorded Client Recorded Date Recorded By Document 05/20/20 11:57 RB [id number] 05/20/20 11:58 RB Document 05/27/20 13:41 RB [id number] 05/27/20 13:41 RB 05/20/20 05/27/20 11:57 13:41 Wound Care Nurse 3 #3 R Plantar Lat -Other Dressing primary layer TCC primary TCC layer #2 R Plantar Med -Other Dressing primary layer TCC Treatment Response Procedure Procedure Tolerated Well Tolerated Well Pain Scale: 0-10 Numeric Is Patient Pain Free? Yes Yes Teaching: Wound Center Eliminating Foot Pressure -Person Taught Patient -Teaching Method Discussion, Demonstration -Response to teaching Verbalize understanding WC - Visit Discharge Discharge Condition Stable Stable Ambulatory Status Cane Ambulatory Transportation Private Auto Private Auto Medication Reconcilliation completed & No No provided to patient/care provider Clinical Summary of Care Provided Yes Yes Wound debrided: plantar lateral foot Laterality: Right Wound Grade/Stage: grade 1 Type of Debridement: Excisional debridement Anesthesia Used: 4% Lidocaine Solution Depth: in the subcutaneous layer Percentage of wound debrided: 100 Instrument Used: #15 blade Tissue Removed: fibrous, devitalized subcutaneous, biofilm, slough Severity: Fat Layer Exposed Amount of bleeding with debridement: Mild Bleeding Controlled with: Pressure Patient tolerated procedure well Assessment/Plan Active Problems (Last Reviewed 05/04/20 @ 18:36 by Nora Jack NP, ESL INSTRUCTOR-C) Hammer toe of right foot (Chronic) with prominent metatarsal heads Delayed wound healing (Chronic) Ulcer of right foot with fat layer exposed (Chronic) Type 2 diabetes mellitus with diabetic polyneuropathy (Chronic) Assessment: plantar right foot ulcer, grade 1 (healed medial and improved lateral). cellulitis right foot resolved. delayed wound healing. diabetes with neuropathy Plan: I reviewed and discussed his case. Subcutaneous excisional debridement was performed as noted in the clinical panel. I recommend he offload more with a total contact cast. Therefore, I recommend application of advanced wound healing product, epi-fix. This is medically necessary for limb salvage and he is failed other conservative standard of care treatment plans. The indication, benefits, anticipated application and healing time and management were reviewed. He is amenable to proceed. This was applied today according to standard protocol and was secured in place with a wound veil and Steri-Strips. Verbal consent was obtained and he tolerated this well. Following this application a secondary dressing was applied. Verbal consent was also obtained for application of total contact cast as the gold standard for offloading. This was applied according standard protocol in a rectus position and well-padded manner. He tolerated this well. He was advised to keep all of this clean, dry, and intact until follow-up next week. I advised him to avoid activities that cause excessive foot sweating and also to make sure his shower bag is sealed properly. He understands he is not permitted to drive with right lower extremity cast in place. I reviewed his noninvasive vascular studies which do not demonstrate gross abnormalities. There is potential small vessel abnormalities in a vascular referral will be performed if he has continued delayed in healing. His venous Doppler exams also reviewed reviewed including reflux evaluation he does have venous insufficiency. He was advised to wear compression dressing. To elevate limbs at rest. To perform manual muscular contraction hourly while awake. To avoid salt in the diet. Referral will be performed to the crematorium operator via nutritional services will be pursued if nonhealing continues. He is advised to continue to work on maintaining an appropriate diet and glucose management to optimize healing. I recommended nutritional supplementation as well. To return to the wound healing center in 1 week or call sooner if he has any return of infection signs. He is reassured no infection is noted today and I do not recommend additional antibiotics.
[2020-06-03 10:29] VITALS: BP 154/78; PULSE 66; RESP 16; TEMP 36.3; BMI 37.1
--- NOTE | 2020-06-03 13:12 | PN.PCM_ITS ---
(1) Ulcer of right foot with fat layer exposed Status: Chronic Code(s): L97.512 - Non-pressure chronic ulcer of other part of right foot with fat layer exposed (2) Hammer toe of right foot Status: Chronic Code(s): M20.41 - Other hammer toe(s) (acquired), right foot Comment: with prominent metatarsal heads (3) Delayed wound healing Status: Chronic Code(s): T14.8XXD - Other injury of unspecified body region, subsequent encounter (4) Type 2 diabetes mellitus with diabetic polyneuropathy Status: Chronic Qualifiers: Diabetes mellitus dedicated intermodal truck driver insulin use: without dedicated intermodal truck driver use Qualified Code(s): E11.42 - Type 2 diabetes mellitus with diabetic polyneuropathy Code(s): E11.42 - Type 2 diabetes mellitus with diabetic polyneuropathy Type of Wound Date of Service: 06/03/20 Chief Complaint: right foot ulcers History of Wound: He is following up for chronic right foot ulcers. He denies redness or drainage. He kept his total contact cast clean and intact last week. He denies fever, chill, nausea, vomiting. Progress of Wound: Improving - Physical Exam Vital Signs Temp Pulse Resp BP 97.3 F L 66 16 154/78 H 06/03/20 10:29 06/03/20 10:29 06/03/20 10:29 06/03/20 10:29 General: Alert, Oriented x3, Cooperative, No apparent distress HEENT: Atraumatic Extremities: No cyanosis, Capillary Refill Less than 3 Seconds, No Calf Tenderness, Diminished Peripheral Pulses, Edema Skin: Ulcer/ Wound - No purulence, erythema, streaking, odor, infection. Adjacent skin is hairless and atrophic Wound Measurements and Assessment WC - Nurse 1 - General Ulcer Measurement Start: 05/20/20 11:17 Freq: Status: Active Protocol: Activity Type Activity Date Activity User E-Sign Co-Sign Detail Recorded Client Recorded Date Recorded By Document 06/03/20 10:29 SALUD [id number] 06/03/20 10:41 SALUD 06/03/20 10:29 Wound Center Nurse 1 [Ulcer Assessment] #3 R Plantar Lat -Current Size (cm) - Length 0.4 -Current Size (cm) - Width 0.5 -Current Size (cm) - Depth 0.2 -Total Square Cm 0.20 -Photo Taken No -Exudate Amt Small -Exudate Type Serosanguineous -Wound Margin Distinct, Outline Attached -Granulation Amt Large (67-100%) -Granulation Quality Red -Necrosis Amt None Present (0 %) -Structure Exposed N/A -Texture (Kathia-wound Skin Appearance) Scarring -Moisture (Kathia-wound Skin Appearance Maceration ) -Color (Kathia-wound Skin Appearance) Hemosiderin Staining -Temperature (Kathia-wound Skin No Abnormality Appearance) (Pt Warm) -Tenderness on Palpation (Kathia-wound No Skin Appearance) -Ulcer Cleansing Wound Cleanser -Foul Odor after Cleansing No -Anesthetic Used 4% Lidocaine Solution WC - Nurse 2 - General Ulcer CM Notes Start: 05/20/20 11:17 Freq: Status: Active Protocol: Activity Type Activity Date Activity User E-Sign Co-Sign Detail Recorded Client Recorded Date Recorded By Document 06/03/20 10:57 SALUD [id number] 06/03/20 11:00 SALUD 06/03/20 10:57 Wound Center Nurse 2 [Procedure/Treatment] -Time 10:58 -Correct Patient Yes -Correct Side, Site, Position Yes -Correct Procedure Yes -Procedure Performed Yes -Type of Procedure Debridement -Clinical Debridement Subcutaneous -Tissue Removed Subcutaneous -Post Debridement (cm) - Length 0.5 -Post Debridement (cm) - Width 0.5 -Post Debridement (cm) - Depth 0.1 -Total Square (Post) (cm) 0.25 -Area of Debridement (cm) - Length 0.5 -Area of Debridement (cm) - Width 0.5 -Total Square (Area) (cm) 0.25 -Tunneling No -Undermining/Tunneling No -Circular Undermining No -Wound/Ulcer Outcome Not Healed -Ulcer Cleansing Rinsed/ Irrigated with Saline -Foul Odor after Cleansing No -Bioengineered Tissue Yes -Type of Bioengineered Tissue Epifix 18mm Disc -Expiration Date 02/16/25 -Product Lot Number [id number] -Percent Used 100 -Saline Lot Number [id number] -Bleeding Controlled with Pressure -Offloading Yes -Type of Offloading Total Contact Cast (TCC) - Right ($) -Treatment Response Procedure Tolerated Well -Debridement - Subq, 1st 20sq cm No -Apply Skin Sub - 1st 25 sq cm - Feet 1 -Epifix 18mm Disc 3 Query Text:18mm = 3 [See Physician Procedure note for Specifics] Pain Scale: 0-10 Numeric [Pain] -Is Patient Pain Free? Yes Musculoskeletal: No Tenderness to Palpation of Joints or Extremities, Muscle Wasting, - - Prominent metatarsal heads and dorsal contraction of lesser toes Neurological: - - Lack of epicritic sensation light touch is consistent with neuropathy status Psych/Mental Status: Normal Affect, Appropriate Debridement Note Post-Debridement Measurements/Treatment WC - Nurse 2 - General Ulcer CM Notes Start: 05/20/20 11:17 Freq: Status: Active Protocol: Activity Type Activity Date Activity User E-Sign Co-Sign Detail Recorded Client Recorded Date Recorded By Document 05/20/20 11:37 [id number] 05/20/20 11:41 Document 05/27/20 13:19 [id number] 05/27/20 13:21 Document 06/03/20 10:57 [id number] 06/03/20 11:00 05/20/20 05/27/20 06/03/20 11:37 13:19 10:57 Wound Center Nurse 2 #3 R Plantar Lat -Time 11:39 13:20 10:58 -Correct Patient Yes Yes Yes -Correct Side, Site, Position Yes Yes Yes -Correct Procedure Yes Yes Yes -Procedure Performed Yes Yes Yes -Type of Procedure Debridement Debridement Debridement -Clinical Debridement Subcutaneous Subcutaneous Subcutaneous -Tissue Removed Subcutaneous Subcutaneous Subcutaneous -Post Debridement (cm) - Length 0.8 0.6 0.5 -Post Debridement (cm) - Width 0.9 0.6 0.5 -Post Debridement (cm) - Depth 0.1 0.2 0.1 -Total Square (Post) (cm) 0.72 0.36 0.25 -Area of Debridement (cm) - Length 0.8 0.6 0.5 -Area of Debridement (cm) - Width 0.9 0.6 0.5 -Total Square (Area) (cm) 0.72 0.36 0.25 -Tunneling No No No -Undermining/Tunneling No No No -Circular Undermining No No No -Wound/Ulcer Outcome Not Healed Not Healed Not Healed -Ulcer Cleansing Rinsed/ Rinsed/ Rinsed/ Irrigated with Irrigated with Irrigated with Saline Saline Saline -Foul Odor after Cleansing No No No -Bioengineered Tissue Yes Yes Yes -Type of Bioengineered Tissue Epifix 18mm Epifix 18mm Epifix 18mm Disc Disc Disc -Expiration Date 01/16/25 01/16/25 02/16/25 -Product Lot Number [id number] -Percent Used 100 100 100 -Saline Lot Number [id number] -Bleeding Controlled with Pressure Pressure Pressure -Offloading Yes Yes Yes -Type of Offloading Total Contact Total Contact Total Contact Cast (TCC) - Cast (TCC) - Cast (TCC) - Right ($) Right ($) Right ($) -Treatment Response Procedure Tolerated Well -Debridement - Subq, 1st 20sq cm No No No -Apply Skin Sub - 1st 25 sq cm - Feet 1 1 -Epifix 18mm Disc 3 3 3 Query Text:18mm = 3 #2 R Plantar Med -Time 11:40 -Correct Patient Yes No -Correct Side, Site, Position Yes No -Correct Procedure Yes No -Procedure Performed Yes No -Type of Procedure Debridement -Clinical Debridement Subcutaneous -Tissue Removed Subcutaneous -Post Debridement (cm) - Length 0.2 0 -Post Debridement (cm) - Width 0.3 0 -Post Debridement (cm) - Depth 0.1 0 -Total Square (Post) (cm) 0.06 0 -Area of Debridement (cm) - Length 0.2 0 -Area of Debridement (cm) - Width 0.3 0 -Total Square (Area) (cm) 0.06 0 -Tunneling No -Undermining/Tunneling No -Circular Undermining No -Wound/Ulcer Outcome Not Healed Healed- Epithelialized -Ulcer Cleansing Rinsed/ Irrigated with Saline -Foul Odor after Cleansing No -Bioengineered Tissue Yes -Type of Bioengineered Tissue Epifix 18mm Disc -Expiration Date 01/16/25 -Product Lot Number [id number] -Percent Used 100 -Saline Lot Number [id number] -Bleeding Controlled with Pressure -Offloading Yes -Type of Offloading Total Contact Cast (TCC) - Right ($) -Treatment Response Procedure Tolerated Well -Debridement - Subq, 1st 20sq cm No -Epifix 18mm Disc 3 Query Text:18mm = 3 Pain Scale: 0-10 Numeric Is Patient Pain Free? Yes Yes Yes WC - Nurse 3 - General Ulcer D/C NN Start: 05/20/20 11:17 Freq: Status: Active Protocol: Activity Type Activity Date Activity User E-Sign Co-Sign Detail Recorded Client Recorded Date Recorded By Document 05/20/20 11:57 RB [id number] 05/20/20 11:58 RB Document 05/27/20 13:41 RB [id number] 05/27/20 13:41 RB 05/20/20 05/27/20 11:57 13:41 Wound Care Nurse 3 #3 R Plantar Lat -Other Dressing primary layer TCC primary TCC layer #2 R Plantar Med -Other Dressing primary layer TCC Treatment Response Procedure Procedure Tolerated Well Tolerated Well Pain Scale: 0-10 Numeric Is Patient Pain Free? Yes Yes Teaching: Wound Center Eliminating Foot Pressure -Person Taught Patient -Teaching Method Discussion, Demonstration -Response to teaching Verbalize understanding WC - Visit Discharge Discharge Condition Stable Stable Ambulatory Status Cane Ambulatory Transportation Private Auto Private Auto Medication Reconcilliation completed & No No provided to patient/care provider Clinical Summary of Care Provided Yes Yes Wound debrided: plantar lateral foot Laterality: Right Wound Grade/Stage: grade 1 Type of Debridement: Excisional debridement Anesthesia Used: 5% Lidocaine Gel Depth: in the subcutaneous layer Percentage of wound debrided: 100 Instrument Used: #15 blade Tissue Removed: fibrous, devitalized subcutaneous, biofilm, slough Severity: Fat Layer Exposed Amount of bleeding with debridement: Mild Bleeding Controlled with: Pressure Patient tolerated procedure well Assessment/Plan Assessment: plantar right foot ulcer, grade 1 (healed medial and improved lateral). cellulitis right foot resolved. delayed wound healing. diabetes with neuropathy Plan: I reviewed and discussed his case. Subcutaneous excisional debridement was performed as noted in the clinical panel. I recommend he offload more with a total contact cast. Therefore, I recommend application of advanced wound healing product, epi-fix. This is medically necessary for limb salvage and he is failed other conservative standard of care treatment plans. The indication, benefits, anticipated application and healing time and management were reviewed. He is amenable to proceed. This was applied today according to standard protocol and was secured in place with a wound veil and Steri-Strips. Verbal consent was obtained and he tolerated this well. Following this application a secondary dressing was applied. Verbal consent was also obtained for application of total contact cast as the gold standard for offloading. This was applied according standard protocol in a rectus position and well-padded manner. He tolerated this well. He was advised to keep all of this clean, dry, and intact until follow-up next week. I advised him to avoid activities that cause excessive foot sweating and also to make sure his shower bag is sealed properly. He understands he is not permitted to drive with right lower extremity cast in place. I reviewed his noninvasive vascular studies which do not demonstrate gross abnormalities. There is potential small vessel abnorma lities in a vascular referral will be performed if he has continued delayed in healing. His venous Doppler exams also reviewed reviewed including reflux evaluation he does have venous insufficiency. He was advised to wear compression dressing. To elevate limbs at rest. To perform manual muscular contraction hourly while awake. To avoid salt in the diet. Referral will be performed to the botanical technical officer via nutritional services will be pursued if nonhealing continues. He is advised to continue to work on maintaining an appropriate diet and glucose management to optimize healing. I recommended nutritional supplementation as well. To return to the wound healing center in 1 week or call sooner if he has any return of infection signs. He is reassured no infection is noted today and I do not recommend additional antibiotics.
[2020-06-10 09:56] VITALS: BP 148/82; PULSE 79; RESP 18; TEMP 36.9; BMI 37.1
--- NOTE | 2020-06-10 10:34 | PN.PCM_ITS ---
(1) Ulcer of right foot with fat layer exposed Status: Chronic Current Visit: Yes Code(s): L97.512 - Non-pressure chronic ulcer of other part of right foot with fat layer exposed (2) Hammer toe of right foot Status: Chronic Current Visit: Yes Code(s): M20.41 - Other hammer toe(s) (acquired), right foot Comment: with prominent metatarsal heads (3) Delayed wound healing Status: Chronic Current Visit: Yes Code(s): T14.8XXD - Other injury of unspecified body region, subsequent encounter (4) Type 2 diabetes mellitus with diabetic polyneuropathy Status: Chronic Current Visit: Yes Qualifiers: Diabetes mellitus fpc insulin use: without fpc use Qualified Code(s): E11.42 - Type 2 diabetes mellitus with diabetic polyneuropathy Code(s): E11.42 - Type 2 diabetes mellitus with diabetic polyneuropathy Type of Wound Date of Service: 06/10/20 Chief Complaint: right foot ulcers History of Wound: He is following up for chronic right foot ulcers. He denies redness or drainage. He kept his total contact cast clean and intact last week. He denies fever, chill, nausea, vomiting. He relates he needs a week off of the total contact cast he is very physically and mentally challenging for him to wear for this extended timeframe. Progress of Wound: Stable - Physical Exam Vital Signs Temp Pulse Resp BP 98.4 F 79 18 148/82 H 06/10/20 09:56 06/10/20 09:56 06/10/20 09:56 06/10/20 09:56 General: Alert, Oriented x3, Cooperative, No apparent distress HEENT: Atraumatic Extremities: No cyanosis, Capillary Refill Less than 3 Seconds, No Calf Tenderness, Diminished Peripheral Pulses, Edema Skin: Ulcer/ Wound - No purulence, erythema, streaking, odor, infection. Granular base. The adjacent skin is hairless and atrophic. The sub-first metatarsal ulcer site remains healed with full epithelialization. There is some adjacent skin peeling and draining blistering around the plantar lateral ulcer site with no deep tissue maceration or necrosis Wound Measurements and Assessment WC - Nurse 1 - General Ulcer Measurement Start: 05/20/20 11:17 Freq: Status: Active Protocol: Activity Type Activity Date Activity User E-Sign Co-Sign Detail Recorded Client Recorded Date Recorded By Document 06/10/20 09:56 DL [id number] 06/10/20 10:17 DL 06/10/20 09:56 Wound Center Nurse 1 [Ulcer Assessment] #3 R Plantar Lat -Current Size (cm) - Length 0.6 -Current Size (cm) - Width 0.6 -Current Size (cm) - Depth 0.2 -Total Square Cm 0.36 -Photo Taken No -Exudate Amt Small -Exudate Type Serosanguineous -Wound Margin Distinct, Outline Attached -Granulation Amt Large (67-100%) -Granulation Quality [place] -Necrosis Amt Small (1-33%) -Necrotic Tissue Type Adherent Slough -Texture (Kathia-wound Skin Appearance) Callus,Scarring -Moisture (Kathia-wound Skin Appearance Maceration ) -Color (Kathia-wound Skin Appearance) No Abnormality -Temperature (Kathia-wound Skin No Abnormality Appearance) (Pt Warm) -Tenderness on Palpation (Kathia-wound No Skin Appearance) -Ulcer Cleansing Wound Cleanser -Foul Odor after Cleansing No -Anesthetic Used 4% Lidocaine Solution WC - Nurse 2 - General Ulcer CM Notes Start: 05/20/20 11:17 Freq: Status: Active Protocol: Activity Type Activity Date Activity User E-Sign Co-Sign Detail Recorded Client Recorded Date Recorded By Document 06/10/20 10:18 SALUD [id number] 06/10/20 10:21 06/10/20 10:18 Wound Center Nurse 2 [Procedure/Treatment] -Time 10:18 -Correct Patient Yes -Correct Side, Site, Position Yes -Correct Procedure Yes -Procedure Performed Yes -Type of Procedure Debridement -Clinical Debridement Subcutaneous -Tissue Removed Subcutaneous -Post Debridement (cm) - Length 1.2 -Post Debridement (cm) - Width 2.8 -Post Debridement (cm) - Depth 0.2 -Total Square (Post) (cm) 3.36 -Area of Debridement (cm) - Length 1.2 -Area of Debridement (cm) - Width 2.8 -Total Square (Area) (cm) 3.36 -Tunneling No -Undermining/Tunneling No -Circular Undermining No -Wound/Ulcer Outcome Not Healed -Ulcer Cleansing Rinsed/ Irrigated with Saline -Foul Odor after Cleansing No -Bioengineered Tissue No -Bleeding Controlled with Pressure -Offloading Yes -Type of Offloading Surgical Shoe -Treatment Response Procedure Tolerated Well -Debridement - Subq, 1st 20sq cm Yes [See Physician Procedure note for Specifics] Pain Scale: 0-10 Numeric [Pain] -Is Patient Pain Free? Yes - Nurse 3 - General Ulcer D/C NN Start: 05/20/20 11:17 Freq: Status: Active Protocol: Activity Type Activity Date Activity User E-Sign Co-Sign Detail Recorded Client Recorded Date Recorded By Document 06/10/20 10:29 [facility] [id number] 06/10/20 10:30 [facility] 06/10/20 10:29 Wound Care Nurse 3 [Wound Dressing] #3 R Plantar Lat -Ulcer Cleansing Rinsed/ Irrigated with Saline -Foul Odor after Cleansing No -Primary Dressing Applied Aquacel AG 4x4 -Primary Dressing Covered/Secured Dry Gauze & with Roll Gauze, Secured with Tape,Other -Other Covering secured w/ jose -Aquacel AG 4x4 1 [Compression Applied] Right -Compression Wrap Jose Wrap -Other jose to secure drsg [Post Procedure Tolerated] -Treatment Response Procedure Tolerated Well Pain Scale: 0-10 Numeric [Pain] -Is Patient Pain Free? Yes - Visit Discharge [Visit Discharge Information] -Discharge Condition Stable -Ambulatory Status Ambulatory,Cane -Transportation Private Auto -Accompanied by Musculoskeletal: No Tenderness to Palpation of Joints or Extremities, Muscle Wasting, - - Prominent metatarsal head Neurological: - - Lack of normal epicritic sensation to light touch Psych/Mental Status: Normal Affect, Appropriate Debridement Note Post-Debridement Measurements/Treatment - Nurse 2 - General Ulcer CM Notes Start: 05/20/20 11:17 Freq: Status: Active Protocol: Activity Type Activity Date Activity User E-Sign Co-Sign Detail Recorded Client Recorded Date Recorded By Document 05/20/20 11:37 [id number] 05/20/20 11:41 Document 05/27/20 13:19 [id number] 05/27/20 13:21 Document 06/03/20 10:57 [id number] 06/03/20 11:00 Document 06/10/20 10:18 [id number] 06/10/20 10:21 05/20/20 05/27/20 06/03/20 11:37 13:19 10:57 Wound Center Nurse 2 #3 R Plantar Lat -Time 11:39 13:20 10:58 -Correct Patient Yes Yes Yes -Correct Side, Site, Position Yes Yes Yes -Correct Procedure Yes Yes Yes -Procedure Performed Yes Yes Yes -Type of Procedure Debridement Debridement Debridement -Clinical Debridement Subcutaneous Subcutaneous Subcutaneous -Tissue Removed Subcutaneous Subcutaneous Subcutaneous -Post Debridement (cm) - Length 0.8 0.6 0.5 -Post Debridement (cm) - Width 0.9 0.6 0.5 -Post Debridement (cm) - Depth 0.1 0.2 0.1 -Total Square (Post) (cm) 0.72 0.36 0.25 -Area of Debridement (cm) - Length 0.8 0.6 0.5 -Area of Debridement (cm) - Width 0.9 0.6 0.5 -Total Square (Area) (cm) 0.72 0.36 0.25 -Tunneling No No No -Undermining/Tunneling No No No -Circular Undermining No No No -Wound/Ulcer Outcome Not Healed Not Healed Not Healed -Ulcer Cleansing Rinsed/ Rinsed/ Rinsed/ Irrigated with Irrigated with Irrigated with Saline Saline Saline -Foul Odor after Cleansing No No No -Bioengineered Tissue Yes Yes Yes -Type of Bioengineered Tissue Epifix 18mm Epifix 18mm Epifix 18mm Disc Disc Disc -Expiration Date 01/16/25 01/16/25 02/16/25 -Product Lot Number [id number] -Percent Used 100 100 100 -Saline Lot Number [id number] -Bleeding Controlled with Pressure Pressure Pressure -Offloading Yes Yes Yes -Type of Offloading Total Contact Total Contact Total Contact Cast (TCC) - Cast (TCC) - Cast (TCC) - Right ($) Right ($) Right ($) -Treatment Response Procedure Tolerated Well -Debridement - Subq, 1st 20sq cm No No No -Apply Skin Sub - 1st 25 sq cm - Feet 1 1 -Epifix 18mm Disc 3 3 3 #2 R Plantar Med -Time 11:40 -Correct Patient Yes No -Correct Side, Site, Position Yes No -Correct Procedure Yes No -Procedure Performed Yes No -Type of Procedure Debridement -Clinical Debridement Subcutaneous -Tissue Removed Subcutaneous -Post Debridement (cm) - Length 0.2 0 -Post Debridement (cm) - Width 0.3 0 -Post Debridement (cm) - Depth 0.1 0 -Total Square (Post) (cm) 0.06 0 -Area of Debridement (cm) - Length 0.2 0 -Area of Debridement (cm) - Width 0.3 0 -Total Square (Area) (cm) 0.06 0 -Tunneling No -Undermining/Tunneling No -Circular Undermining No -Wound/Ulcer Outcome Not Healed Healed- Epithelialized -Ulcer Cleansing Rinsed/ Irrigated with Saline -Foul Odor after Cleansing No -Bioengineered Tissue Yes -Type of Bioengineered Tissue Epifix 18mm Disc -Expiration Date 01/16/25 -Product Lot Number [id number] -Percent Used 100 -Saline Lot Number [id number] -Bleeding Controlled with Pressure -Offloading Yes -Type of Offloading Total Contact Cast (TCC) - Right ($) -Treatment Response Procedure Tolerated Well -Debridement - Subq, 1st 20sq cm No -Epifix 18mm Disc 3 Pain Scale: 0-10 Numeric Is Patient Pain Free? Yes Yes Yes 06/10/20 10:18 Wound Center Nurse 2 #3 R Plantar Lat -Time 10:18 -Correct Patient Yes -Correct Side, Site, Position Yes -Correct Procedure Yes -Procedure Performed Yes -Type of Procedure Debridement -Clinical Debridement Subcutaneous -Tissue Removed Subcutaneous -Post Debridement (cm) - Length 1.2 -Post Debridement (cm) - Width 2.8 -Post Debridement (cm) - Depth 0.2 -Total Square (Post) (cm) 3.36 -Area of Debridement (cm) - Length 1.2 -Area of Debridement (cm) - Width 2.8 -Total Square (Area) (cm) 3.36 -Tunneling No -Undermining/Tunneling No -Circular Undermining No -Wound/Ulcer Outcome Not Healed -Ulcer Cleansing Rinsed/ Irrigated with Saline -Foul Odor after Cleansing No -Bioengineered Tissue No -Type of Bioengineered Tissue -Expiration Date -Product Lot Number -Percent Used -Saline Lot Number -Bleeding Controlled with Pressure -Offloading Yes -Type of Offloading Surgical Shoe -Treatment Response Procedure Tolerated Well -Debridement - Subq, 1st 20sq cm Yes -Apply Skin Sub - 1st 25 sq cm - Feet -Epifix 18mm Disc #2 R Plantar Med -Time -Correct Patient -Correct Side, Site, Position -Correct Procedure -Procedure Performed -Type of Procedure -Clinical Debridement -Tissue Removed -Post Debridement (cm) - Length -Post Debridement (cm) - Width -Post Debridement (cm) - Depth -Total Square (Post) (cm) -Area of Debridement (cm) - Length -Area of Debridement (cm) - Width -Total Square (Area) (cm) -Tunneling -Undermining/Tunneling -Circular Undermining -Wound/Ulcer Outcome -Ulcer Cleansing -Foul Odor after Cleansing -Bioengineered Tissue -Type of Bioengineered Tissue -Expiration Date -Product Lot Number -Percent Used -Saline Lot Number -Bleeding Controlled with -Offloading -Type of Offloading -Treatment Response -Debridement - Subq, 1st 20sq cm -Epifix 18mm Disc Pain Scale: 0-10 Numeric Is Patient Pain Free? Yes - Nurse 3 - General Ulcer D/C NN Start: 05/20/20 11:17 Freq: Status: Active Protocol: Activity Type Activity Date Activity User E-Sign Co-Sign Detail Recorded Client Recorded Date Recorded By Document 05/20/20 11:57 RB [id number] 05/20/20 11:58 RB Document 05/27/20 13:41 RB [id number] 05/27/20 13:41 RB Document 06/03/20 14:22 DL [id number] 06/03/20 14:24 DL Document 06/10/20 10:29 BMF [id number] 06/10/20 10:30 BMF 05/20/20 05/27/20 06/03/20 11:57 13:41 14:22 Wound Care Nurse 3 #3 R Plantar Lat -Ulcer Cleansing -Foul Odor after Cleansing No -Primary Dressing Applied -Other Dressing primary layer TCC primary epifix/viel/ TCC layer steri strips -Primary Dressing Covered/Secured with -Other Covering TCC undercasting -Aquacel AG 4x4 #2 R Plantar Med -Other Dressing primary layer TCC Right -Compression Wrap -Other Treatment Response Procedure Procedure Procedure Tolerated Well Tolerated Well Tolerated Well Pain Scale: 0-10 Numeric Is Patient Pain Free? Yes Yes Yes Teaching: Wound Center Eliminating Foot Pressure -Person Taught Patient -Teaching Method Discussion, Demonstration -Response to teaching Verbalize understanding WC - Visit Discharge Discharge Condition Stable Stable Stable Ambulatory Status Cane Ambulatory Ambulatory Transportation Private Auto Private Auto Private Auto Accompanied by Medication Reconcilliation completed & No No provided to patient/care provider Clinical Summary of Care Provided Yes Yes 06/10/20 10:29 Wound Care Nurse 3 #3 R Plantar Lat -Ulcer Cleansing Rinsed/ Irrigated with Saline -Foul Odor after Cleansing No -Primary Dressing Applied Aquacel AG 4x4 -Other Dressing -Primary Dressing Covered/Secured with Dry Gauze & Roll Gauze, Secured with Tape,Other -Other Covering secured w/ jose -Aquacel AG 4x4 1 #2 R Plantar Med -Other Dressing Right -Compression Wrap Jose Wrap -Other jose to secure drsg Treatment Response Procedure Tolerated Well Pain Scale: 0-10 Numeric Is Patient Pain Free? Yes Teaching: Wound Center Eliminating Foot Pressure -Person Taught -Teaching Method -Response to teaching WC - Visit Discharge Discharge Condition Stable Ambulatory Status Ambulatory,Cane Transportation Private Auto Accompanied by Medication Reconcilliation completed & provided to patient/care provider Clinical Summary of Care Provided Wound debrided: plantar lateral foot Laterality: Right Type of Debridement: Excisional debridement Anesthesia Used: 5% Lidocaine Gel Depth: in the subcutaneous layer Percentage of wound debrided: 100 Instrument Used: #15 blade Tissue Removed: fibrous, devitalized subcutaneous, biofilm, slough Severity: Fat Layer Exposed Amount of bleeding with debridement: Mild Bleeding Controlled with: Pressure Patient tolerated procedure well Assessment/Plan Active Problems (Last Reviewed 06/04/20 @ 18:16 by Nora Jack [employer]SEMBL[employer], [employer]-C) Hammer toe of right foot (Chronic) with prominent metatarsal heads Delayed wound healing (Chronic) Ulcer of right foot with fat layer exposed (Chronic) Type 2 diabetes mellitus with diabetic polyneuropathy (Chronic) Assessment: plantar right foot ulcer, grade 1 (healed medial and stable lateral). cellulitis right foot resolved. delayed wound healing. diabetes with neuropathy Plan: I reviewed and discussed his case. Subcutaneous excisional debridement was performed as noted in the clinical panel. I recommend he offload more with a total contact cast. He would like to take a break this week and I advised him to return to his surgical shoe and place weight on his heel. Total contact cast to be considered next week. I also recommend that he washes this with soap and water daily to reduce inflammation and reduce bioburden. Therefore, we will take a break from the epi-fix this week. To change the dressing daily with Aquacel Ag. I reviewed his noninvasive vascular studies which do not demonstrate gross abnormalities. There is potential small vessel abnormalities in a vascular referral will be performed if he has continued delayed in healing. His venous Doppler exams also reviewed reviewed including reflux evaluation he does have venous insufficiency. He was advised to wear compression dressing. To elevate limbs at rest. To perform manual muscular contraction hourly while awake. To avoid salt in the diet. Referral will be performed to the allied health teacher via nutritional services will be pursued if nonhealing continues. He is advised to continue to work on maintaining an appropriate diet and glucose management to optimize healing. I recommended nutritional supplementation as well. To return to the wound healing center in 1 week or call sooner if he has any return of infection signs. He is reassured no infection is noted today and I do not recommend additional antibiotics.
[2020-06-17 09:56] VITALS: BP 147/83; PULSE 61; RESP 16; TEMP 36.1; BMI 37.1
[2020-06-17 10:29] VITALS: BP 150/81; PULSE 58; RESP 16
--- NOTE | 2020-06-20 17:31 | PN.PCM_ITS ---
(1) Ulcer of right foot with fat layer exposed Status: Chronic Code(s): L97.512 - Non-pressure chronic ulcer of other part of right foot with fat layer exposed (2) Hammer toe of right foot Status: Chronic Code(s): M20.41 - Other hammer toe(s) (acquired), right foot Comment: with prominent metatarsal heads (3) Delayed wound healing Status: Chronic Code(s): T14.8XXD - Other injury of unspecified body region, subsequent encounter (4) Type 2 diabetes mellitus with diabetic polyneuropathy Status: Chronic Qualifiers: Diabetes mellitus intermission coordinator insulin use: without usp use Qualified Code(s): E11.42 - Type 2 diabetes mellitus with diabetic polyneuropathy Code(s): E11.42 - Type 2 diabetes mellitus with diabetic polyneuropathy Type of Wound Date of Service: 06/17/20 Chief Complaint: right foot ulcer History of Wound: He is following up for chronic right foot ulcers. He denies redness or drainage. He took a break from the total contact cast last week and relates he is a little bit more active at a car show. He denies fever, chill, nausea, vomiting. He denies other pedal complaints and is amenable to resume the cast today. Progress of Wound: Stable - Physical Exam Vital Signs Temp Pulse Resp BP 96.9 F L 58 L 16 150/81 H 06/17/20 09:56 06/17/20 10:29 06/17/20 10:29 06/17/20 10:29 General: Alert, Oriented x3, Cooperative, No apparent distress Extremities: No cyanosis, Capillary Refill Less than 3 Seconds, No Calf Tenderness, Diminished Peripheral Pulses, Edema Skin: Ulcer/ Wound - No purulence, erythema, streaking, odor, infection. Adjacent skin is hairless and atrophic. The recently healed plantar medial foot ulcer site remains healed Musculoskeletal: No Tenderness to Palpation of Joints or Extremities, Muscle Wasting, - - Prominent metatarsal head Neurological: - - Lack of normal epicritic sensation light touch Psych/Mental Status: Normal Affect, Appropriate Debridement Note Post-Debridement Measurements/Treatment WC - Nurse 2 - General Ulcer CM Notes Start: 05/20/20 11:17 Freq: Status: Active Protocol: Activity Type Activity Date Activity User E-Sign Co-Sign Detail Recorded Client Recorded Date Recorded By Document 05/20/20 11:37 JF [id number] 05/20/20 11:41 Document 05/27/20 13:19 [id number] 05/27/20 13:21 Document 06/03/20 10:57 [id number] 06/03/20 11:00 Document 06/10/20 10:18 [id number] 06/10/20 10:21 Document 06/17/20 10:14 [id number] 06/17/20 10:18 05/20/20 05/27/20 06/03/20 11:37 13:19 10:57 Wound Center Nurse 2 #3 R Plantar Lat -Time 11:39 13:20 10:58 -Correct Patient Yes Yes Yes -Correct Side, Site, Position Yes Yes Yes -Correct Procedure Yes Yes Yes -Procedure Performed Yes Yes Yes -Type of Procedure Debridement Debridement Debridement -Clinical Debridement Subcutaneous Subcutaneous Subcutaneous -Tissue Removed Subcutaneous Subcutaneous Subcutaneous -Post Debridement (cm) - Length 0.8 0.6 0.5 -Post Debridement (cm) - Width 0.9 0.6 0.5 -Post Debridement (cm) - Depth 0.1 0.2 0.1 -Total Square (Post) (cm) 0.72 0.36 0.25 -Area of Debridement (cm) - Length 0.8 0.6 0.5 -Area of Debridement (cm) - Width 0.9 0.6 0.5 -Total Square (Area) (cm) 0.72 0.36 0.25 -Tunneling No No No -Undermining/Tunneling No No No -Circular Undermining No No No -Wound/Ulcer Outcome Not Healed Not Healed Not Healed -Ulcer Cleansing Rinsed/ Rinsed/ Rinsed/ Irrigated with Irrigated with Irrigated with Saline Saline Saline -Foul Odor after Cleansing No No No -Bioengineered Tissue Yes Yes Yes -Type of Bioengineered Tissue Epifix 18mm Epifix 18mm Epifix 18mm Disc Disc Disc -Expiration Date 01/16/25 01/16/25 02/16/25 -Product Lot Number [id number] -Percent Used 100 100 100 -Saline Lot Number [id number] -Bleeding Controlled with Pressure Pressure Pressure -Offloading Yes Yes Yes -Type of Offloading Total Contact Total Contact Total Contact Cast (TCC) - Cast (TCC) - Cast (TCC) - Right ($) Right ($) Right ($) -Treatment Response Procedure Tolerated Well -Debridement - Subq, 1st 20sq cm No No No -Apply Skin Sub - 1st 25 sq cm - Feet 1 1 -Epifix (per sq cm) -Epifix 18mm Disc 3 3 3 #2 R Plantar Med -Time 11:40 -Correct Patient Yes No -Correct Side, Site, Position Yes No -Correct Procedure Yes No -Procedure Performed Yes No -Type of Procedure Debridement -Clinical Debridement Subcutaneous -Tissue Removed Subcutaneous -Post Debridement (cm) - Length 0.2 0 -Post Debridement (cm) - Width 0.3 0 -Post Debridement (cm) - Depth 0.1 0 -Total Square (Post) (cm) 0.06 0 -Area of Debridement (cm) - Length 0.2 0 -Area of Debridement (cm) - Width 0.3 0 -Total Square (Area) (cm) 0.06 0 -Tunneling No -Undermining/Tunneling No -Circular Undermining No -Wound/Ulcer Outcome Not Healed Healed- Epithelialized -Ulcer Cleansing Rinsed/ Irrigated with Saline -Foul Odor after Cleansing No -Bioengineered Tissue Yes -Type of Bioengineered Tissue Epifix 18mm Disc -Expiration Date 01/16/25 -Product Lot Number [id number] -Percent Used 100 -Saline Lot Number [id number] -Bleeding Controlled with Pressure -Offloading Yes -Type of Offloading Total Contact Cast (TCC) - Right ($) -Treatment Response Procedure Tolerated Well -Debridement - Subq, 1st 20sq cm No -Epifix 18mm Disc 3 Pain Scale: 0-10 Numeric Is Patient Pain Free? Yes Yes Yes 06/10/20 06/17/20 10:18 10:14 Wound Center Nurse 2 #3 R Plantar Lat -Time 10:18 10:14 -Correct Patient Yes Yes -Correct Side, Site, Position Yes -Correct Procedure Yes Yes -Procedure Performed Yes Yes -Type of Procedure Debridement Debridement -Clinical Debridement Subcutaneous Subcutaneous -Tissue Removed Subcutaneous Subcutaneous -Post Debridement (cm) - Length 1.2 1.4 -Post Debridement (cm) - Width 2.8 1 -Post Debridement (cm) - Depth 0.2 0.3 -Total Square (Post) (cm) 3.36 1.4 -Area of Debridement (cm) - Length 1.2 1.4 -Area of Debridement (cm) - Width 2.8 1.0 -Total Square (Area) (cm) 3.36 1.40 -Tunneling No No -Undermining/Tunneling No No -Circular Undermining No No -Wound/Ulcer Outcome Not Healed Not Healed -Ulcer Cleansing Rinsed/ Rinsed/ Irrigated with Irrigated with Saline Saline -Foul Odor after Cleansing No No -Bioengineered Tissue No Yes -Type of Bioengineered Tissue Epifix -Expiration Date 02/16/25 -Product Lot Number [id number] -Percent Used 100 -Saline Lot Number [id number] -Bleeding Controlled with Pressure Pressure -Offloading Yes Yes -Type of Offloading Surgical Shoe Total Contact Cast (TCC) - Right ($) -Treatment Response Procedure Procedure Tolerated Well Tolerated Well -Debridement - Subq, 1st 20sq cm Yes No -Apply Skin Sub - 1st 25 sq cm - Feet 1 -Epifix (per sq cm) 4 -Epifix 18mm Disc #2 R Plantar Med -Time -Correct Patient -Correct Side, Site, Position -Correct Procedure -Procedure Performed -Type of Procedure -Clinical Debridement -Tissue Removed -Post Debridement (cm) - Length -Post Debridement (cm) - Width -Post Debridement (cm) - Depth -Total Square (Post) (cm) -Area of Debridement (cm) - Length -Area of Debridement (cm) - Width -Total Square (Area) (cm) -Tunneling -Undermining/Tunneling -Circular Undermining -Wound/Ulcer Outcome -Ulcer Cleansing -Foul Odor after Cleansing -Bioengineered Tissue -Type of Bioengineered Tissue -Expiration Date -Product Lot Number -Percent Used -Saline Lot Number -Bleeding Controlled with -Offloading -Type of Offloading -Treatment Response -Debridement - Subq, 1st 20sq cm -Epifix 18mm Disc Pain Scale: 0-10 Numeric Is Patient Pain Free? Yes WC - Nurse 3 - General Ulcer D/C NN Start: 05/20/20 11:17 Freq: Status: Active Protocol: Activity Type Activity Date Activity User E-Sign Co-Sign Detail Recorded Client Recorded Date Recorded By Document 05/20/20 11:57 RB [id number] 05/20/20 11:58 RB Document 05/27/20 13:41 RB [id number] 05/27/20 13:41 RB Document 06/03/20 14:22 DL [id number] 06/03/20 14:24 DL Document 06/10/20 10:29 BM [id number] 06/10/20 10:30 BMF Document 06/17/20 10:29 [facility] [id number] 06/17/20 10:30 [facility] 05/20/20 05/27/20 06/03/20 11:57 13:41 14:22 Wound Care Nurse 3 #3 R Plantar Lat -Ulcer Cleansing -Foul Odor after Cleansing No -Primary Dressing Applied -Other Dressing primary layer TCC primary epifix/viel/ TCC layer steri strips -Primary Dressing Covered/Secured with -Other Covering TCC undercasting -Aquacel AG 4x4 #2 R Plantar Med -Other Dressing primary layer TCC Right -Compression Wrap -Other Treatment Response Procedure Procedure Procedure Tolerated Well Tolerated Well Tolerated Well Pain Scale: 0-10 Numeric Is Patient Pain Free? Yes Yes Yes Vital Signs Pulse Rate (60-100) Pulse Location Respiratory Rate (12-18) Respiratory rate source Oxygen Delivery Method Blood Pressure (90/60-120/80) Blood Pressure Mean (mm Hg) Source Position Blood Pressure Location Teaching: Wound Center Eliminating Foot Pressure -Person Taught Patient -Teaching Method Discussion, Demonstration -Response to teaching Verbalize understanding WC - Visit Discharge Discharge Condition Stable Stable Stable Ambulatory Status Cane Ambulatory Ambulatory Transportation Private Auto Private Auto Private Auto Accompanied by Medication Reconcilliation completed & No No provided to patient/care provider Clinical Summary of Care Provided Yes Yes 06/10/20 06/17/20 10:29 10:29 Wound Care Nurse 3 #3 R Plantar Lat -Ulcer Cleansing Rinsed/ Irrigated with Saline -Foul Odor after Cleansing No -Primary Dressing Applied Aquacel AG 4x4 Other -Other Dressing epifix per dr fascione -Primary Dressing Covered/Secured with Dry Gauze & Other Roll Gauze, Secured with Tape,Other -Other Covering secured w/ jose tcc undercast -Aquacel AG 4x4 1 #2 R Plantar Med -Other Dressing Right -Compression Wrap Jose Wrap -Other jose to secure tcc drsg Treatment Response Procedure Tolerated Well Pain Scale: 0-10 Numeric Is Patient Pain Free? Yes Yes Vital Signs Pulse Rate (60-100) 58 L Pulse Location Monitor Respiratory Rate (12-18) 16 Respiratory rate source Observation Oxygen Delivery Method Room Air Blood Pressure (90/60-120/80) 150/81 H Blood Pressure Mean (mm Hg) 104 Source Monitor Position Sitting Blood Pressure Location Left Arm Teaching: Wound Center Eliminating Foot Pressure -Person Taught -Teaching Method -Response to teaching WC - Visit Discharge Discharge Condition Stable Stable Ambulatory Status Ambulatory,Cane Transportation Private Auto Private Auto Accompanied by Medication Reconcilliation completed & provided to patient/care provider Clinical Summary of Care Provided Wound debrided: plantar lateral foot Laterality: Right Wound Grade/Stage: grade 1 Type of Debridement: Excisional debridement Depth: in the subcutaneous layer Percentage of wound debrided: 100 Instrument Used: #15 blade Tissue Removed: fibrous, devitalized subcutaneous, biofilm, slough Severity: Fat Layer Exposed Amount of bleeding with debridement: Mild Bleeding Controlled with: Pressure Patient tolerated procedure well Assessment/Plan Assessment: plantar right foot ulcer, grade 1 (healed medial and stable lateral). cellulitis right foot resolved. delayed wound healing. diabetes with neuropathy Plan: I reviewed and discussed his case. Subcutaneous excisional debridement was performed as noted in the clinical panel. I recommend application of advanced wound healing product, epi-fix. Verbal consent was obtained and this was applied according standard protocol. This was secured with a wound veil and Steri-Strips. He tolerated this well. This is medically necessary for limb salvage. I recommend he offload more with a total contact cast. Verbal consent was obtained and this was also applied according standard protocol in a well- padded neutral position. He tolerated this well. He was advised to keep his dressing and splint clean, dry, and intact until follow-up next week. To reduce overall activity. I reviewed his noninvasive vascular studies which do not demonstrate gross abnormalities. There is potential small vessel abnormalities in a vascular referral will be performed if he has continued delayed in healing. His venous Doppler exams also reviewed reviewed including reflux evaluation he does have venous insufficiency. He was advised to wear compression dressing. To elevate limbs at rest. To perform manual muscular contraction hourly while awake. To avoid salt in the diet. Referral will be performed to the executive kitchen manager via nutritional services will be pursued if nonhealing continues. He is advised to continue to work on maintaining an appropriate diet and glucose management to optimize healing. I recommended nutritional supplementation as well. To return to the wound healing center in 1 week or call sooner if he has any return of infection signs. He is reassured no infection is noted today and I do not recommend additional antibiotics.
== END 2020-06-17 23:59 ==
LOC: WC 09:45
PROVIDERS: PCP Nurse Practitioner; Referring Provider Podiatrist; Visit Provider Podiatrist
DX: E11.621 Type 2 diabetes mellitus with foot ulcer (principal); L97.512 Non-pressure chronic ulcer of other part of right foot with fat layer exposed; M20.41 Other hammer toe(s) (acquired), right foot; T14.8XXD Other injury of unspecified body region, subsequent encounter; E11.42 Type 2 diabetes mellitus with diabetic polyneuropathy; L03.115 Cellulitis of right lower limb; I87.2 Venous insufficiency (chronic) (peripheral)
CPT/HCPCS: 11042; 15275; 29445; Q4186

== ENCOUNTER 2020-07-15 09:15 | Outpatient (RCR) | payer MEDICAID, SELFPAY ==
[2020-06-18 00:37] VITALS: BP 150/81; PULSE 58; RESP 16; TEMP 36.1; BMI 35.9
[2020-06-24 09:43] VITALS: BP 156/76; PULSE 68; RESP 18; TEMP 35.9; BMI 35.9
--- NOTE | 2020-06-24 09:44 | WC ---
pt TCC removed and primary layer and foam wet . pt periulcer macerated pt states I shower every other day with a shower bag and electical tape
--- NOTE | 2020-06-24 10:37 | PN.PCM_ITS ---
(1) Diabetic foot ulcer associated with diabetes mellitus due to underlying condition Status: Acute Current Visit: Yes Qualifiers: Code(s): E08.621 - Diabetes mellitus due to underlying condition with foot ulcer; L97.509 - Non-pressure chronic ulcer of other part of unspecified foot with unspecified severity (2) Ulcer of right foot due to type 2 diabetes mellitus Status: Acute Current Visit: Yes Code(s): E11.621 - Type 2 diabetes mellitus with foot ulcer; L97.519 - Non-pressure chronic ulcer of other part of right foot with unspecified severity (3) Delayed wound healing Status: Chronic Current Visit: Yes Code(s): T14.8XXD - Other injury of unspecified body region, subsequent encounter (4) PAD (peripheral artery disease) Status: Chronic Current Visit: Yes Code(s): I73.9 - Peripheral vascular d isease, unspecified (5) Peripheral neuropathy Status: Chronic Current Visit: Yes Qualifiers: Code(s): G62.9 - Polyneuropathy, unspecified (6) Ulcer of right foot with fat layer exposed Status: Chronic Current Visit: Yes Code(s): L97.512 - Non-pressure chronic ulcer of other part of right foot with fat layer exposed Type of Wound Date of Service: 06/24/20 Chief Complaint: right foot ulcer History of Wound: He is following up for chronic right foot ulcers. Patient did have some maceration around the foot ulcer and his dressing was quite moist. He denies redness or drainage. He took a break from the total contact cast last week and relates he is a little bit more active at a car show. He denies fever, chill, nausea, vomiting. He denies other pedal complaints and is amenable to resume the cast today. Progress of Wound: Stable - Physical Exam Vital Signs Temp Pulse Resp BP 96.7 F L 68 18 156/76 H 06/24/20 09:43 06/24/20 09:43 06/24/20 09:43 06/24/20 09:43 General: Oriented x3, Cooperative, Well developed HEENT: Atraumatic, PERRLA Oral: Moist Mucosa Neck: Supple, No JVD Lungs: Clear to auscultation, Normal air movement Cardiovascular: Regular rate, Regular Rhythm Abdomen: Bowel Sounds Present, Soft, Non Tender, No Hepato-splenomegaly Extremities: No clubbing, No edema Skin: Ulcer/ Wound - Right lateral plantar foot Wound Measurements and Assessment WC - Nurse 1 - General Ulcer Measurement Start: 06/24/20 09:43 Freq: Status: Active Protocol: Activity Type Activity Date Activity User E-Sign Co-Sign Detail Recorded Client Recorded Date Recorded By Document 06/24/20 09:43 RB [id number] 06/24/20 09:47 RB 06/24/20 09:43 Wound Center Nurse 1 [Ulcer Assessment] #3 R Plantar Lat -Combined with other wound No -Current Size (cm) - Length 1 -Current Size (cm) - Width 1.8 -Current Size (cm) - Depth 0.3 -Total Square Cm 1.8 -Tunneling No -Undermining/Tunneling No -Circular Undermining No -Exudate Amt Medium -Exudate Type Serosanguineous -Wound Margin Thickened -Granulation Amt Medium (34-66%) -Granulation Quality [place] -Slough/Fibrin Yes -Necrosis Amt Small (1-33%) -Necrotic Tissue Type Adherent Slough -Structure Exposed N/A -Texture (Kathia-wound Skin Appearance) Callus -Moisture (Kathia-wound Skin Appearance Maceration ) -Color (Kathia-wound Skin Appearance) Assessed -Temperature (Kathia-wound Skin No Abnormality Appearance) (Pt Warm) -Tenderness on Palpation (Kathia-wound No Skin Appearance) -Ulcer Cleansing Wound Cleanser -Foul Odor after Cleansing No -Anesthetic Used 4% Lidocaine Solution WC - Nurse 2 - General Ulcer CM Notes Start: 06/24/20 09:43 Freq: Status: Active Protocol: Activity Type Activity Date Activity User E-Sign Co-Sign Detail Recorded Client Recorded Date Recorded By Document 06/24/20 09:59 MW [id number] 06/24/20 10:04 MW 06/24/20 09:59 Wound Center Nurse 2 [Procedure/Treatment] -Time 09:59 -Correct Patient Yes -Correct Side, Site, Position Yes -Correct Procedure Yes -Procedure Performed Yes -Type of Procedure Debridement -Clinical Debridement Subcutaneous -Tissue Removed Subcutaneous -Post Debridement (cm) - Length 0.6 -Post Debridement (cm) - Width 1.8 -Post Debridement (cm) - Depth 0.1 -Total Square (Post) (cm) 1.08 -Area of Debridement (cm) - Length 0.6 -Area of Debridement (cm) - Width 1.8 -Total Square (Area) (cm) 1.08 -Tunneling No -Undermining/Tunneling No -Circular Undermining No -Wound/Ulcer Outcome Not Healed -Ulcer Cleansing Rinsed/ Irrigated with Saline -Foul Odor after Cleansing No -Bioengineered Tissue Yes -Type of Bioengineered Tissue Epifix -Expiration Date 02/16/25 -Product Lot Number [id number] -Percent Used 100 -Saline Lot Number [id number] -Bleeding Controlled with Pressure -Offloading No -Treatment Response Procedure Tolerated Well -Debridement - Subq, 1st 20sq cm No -Apply Skin Sub - each addt'l 25 sq 1 cm - Feet -Epifix (per sq cm) 4 [See Physician Procedure note for Specifics] Pain Scale: 0-10 Numeric [Pain] -Is Patient Pain Free? Yes Musculoskeletal: No Tenderness to Palpation of Joints or Extremities Lymphatic: No Cervical, Supraclavicular, or Inguinal Adenopathy Neurological: Cranial nerves II-XII grossly intact, Neuro grossly intact Psych/Mental Status: Normal Affect, Appropriate Debridement Note Post-Debridement Measurements/Treatment WC - Nurse 2 - General Ulcer CM Notes Start: 06/24/20 09:43 Freq: Status: Active Protocol: Activity Type Activity Date Activity User E-Sign Co-Sign Detail Recorded Client Recorded Date Recorded By Document 06/24/20 09:59 MW [id number] 06/24/20 10:04 MW 06/24/20 09:59 Wound Center Nurse 2 #3 R Plantar Lat -Time 09:59 -Correct Patient Yes -Correct Side, Site, Position Yes -Correct Procedure Yes -Procedure Performed Yes -Type of Procedure Debridement -Clinical Debridement Subcutaneous -Tissue Removed Subcutaneous -Post Debridement (cm) - Length 0.6 -Post Debridement (cm) - Width 1.8 -Post Debridement (cm) - Depth 0.1 -Total Square (Post) (cm) 1.08 -Area of Debridement (cm) - Length 0.6 -Area of Debridement (cm) - Width 1.8 -Total Square (Area) (cm) 1.08 -Tunneling No -Undermining/Tunneling No -Circular Undermining No -Wound/Ulcer Outcome Not Healed -Ulcer Cleansing Rinsed/ Irrigated with Saline -Foul Odor after Cleansing No -Bioengineered Tissue Yes -Type of Bioengineered Tissue Epifix -Expiration Date 02/16/25 -Product Lot Number [id number] -Percent Used 100 -Saline Lot Number [id number] -Bleeding Controlled with Pressure -Offloading No -Treatment Response Procedure Tolerated Well -Debridement - Subq, 1st 20sq cm No -Apply Skin Sub - each addt'l 25 sq cm 1 - Feet -Epifix (per sq cm) 4 Pain Scale: 0-10 Numeric Is Patient Pain Free? Yes Wound debrided: Right lateral plantar ulcer Type of Debridement: Excisional debridement Anesthesia Used: 5% Lidocaine Gel Depth: Down to and including healthy tissue, in the subcutaneous layer Percentage of wound debrided: 100 Instrument Used: 7mm curette Tissue Removed: Devitalized tissue and fibrin Severity: Limited To Skin Breakdown Amount of bleeding with debridement: Mild Bleeding Controlled with: Compression and gauze Patient tolerated procedure well Assessment/Plan Active Problems (Last Reviewed 06/04/20 @ 18:16 by Nora Jack GEOTECHNICAL OPERATING ENGINEER, GEOTECHNICAL OPERATING ENGINEER-C) Delayed wound healing (Chronic) Diabetic foot ulcer associated with diabetes mellitus due to underlying condition (Acute) Ulcer of right foot with fat layer exposed (Chronic) Ulcer of right foot due to type 2 diabetes mellitus (Acute) PAD (peripheral artery disease) (Chronic) Peripheral neuropathy (Chronic) Assessment: plantar right foot ulcer, grade 1 (healed medial and stable lateral). cellulitis right foot resolved. delayed wound healing right plantar DFU. diabetes with neuropathy Plan: I reviewed and discussed his case. Subcutaneous excisional debridement was performed as noted in the clinical panel. I recommend application of advanced wound healing product, epi-fix. Verbal consent was obtained and this was applied according standard protocol. This was secured with a wound veil and Steri-Strips. He tolerated this well. This is medically necessary for limb salvage. I recommend he offload more with a total contact cast. Verbal consent was obtained and this was also applied according standard protocol in a well-padded neutral position. He tolerated this well. He was advised to keep his dressing and splint clean, dry, and intact until follow-up next week. To reduce overall activity. I reviewed his noninvasive vascular studies which do not demonstrate gross abnormalities. There is potential small vessel abnormalities in a vascular referral will be performed if he has continued delayed in healing. His venous Doppler exams also reviewed reviewed including reflux evaluation he does have venous insufficiency. He was advised to wear compression dressing. To elevate limbs at rest. To perform manual muscular contraction hourly while awake. To avoid salt in the diet. Referral will be performed to the kindergarten classroom teacher via nutritional services will be pursued if nonhealing continues. He is advised to continue to work on maintaining an appropriate diet and glucose management to optimize healing. I recommended nutritional supplementation as well. To return to the wound healing center in 1 week or call sooner if he has any return of infection signs. He is reassured no infection is noted today and I do not recommend additional antibiotics.
[2020-07-01 12:07] VITALS: BP 186/83; PULSE 60; RESP 18; TEMP 36.3; BMI 35.9
--- NOTE | 2020-07-01 14:37 | PN.PCM_ITS ---
(1) Delayed wound healing Status: Chronic Code(s): T14.8XXD - Other injury of unspecified body region, subsequent encounter (2) Ulcer of right foot with fat layer exposed Status: Chronic Code(s): L97.512 - Non-pressure chronic ulcer of other part of right foot with fat layer exposed (3) Type 2 diabetes mellitus with diabetic polyneuropathy Status: Chronic Qualifiers: Diabetes mellitus detention insulin use: without equipment operator intermodal yard use Qualified Code(s): E11.42 - Type 2 diabetes mellitus with diabetic polyneuropathy Code(s): E11.42 - Type 2 diabetes mellitus with diabetic polyneuropathy Type of Wound Date of Service: 07/01/20 Chief Complaint: right foot ulcer History of Wound: He is following up for chronic right foot ulcers. He denies redness or drainage. He denies fever, chill, nausea, vomiting. He denies other pedal complaints and is amenable to resume the cast today. Progress of Wound: Stable - Physical Exam Vital Signs Temp Pulse Resp BP 97.3 F L 60 18 186/83 H 07/01/20 12:07 07/01/20 12:07 07/01/20 12:07 07/01/20 12:07 General: Alert, Oriented x3, Cooperative Extremities: No cyanosis, Capillary Refill Less than 3 Seconds, No Calf Tenderness, Diminished Peripheral Pulses, Edema Skin: Ulcer/ Wound - No purulence, erythema, streaking, odor, infection. His skin is hairless and atrophic. His ulcer bed is pale and granular Wound Measurements and Assessment WC - Nurse 1 - General Ulcer Measurement Start: 06/24/20 09:43 Freq: Status: Active Protocol: Activity Type Activity Date Activity User E-Sign Co-Sign Detail Recorded Client Recorded Date Recorded By Document 07/01/20 12:07 DL [id number] 07/01/20 12:18 DL 07/01/20 12:07 Wound Center Nurse 1 [Ulcer Assessment] #3 R Plantar Lat -Current Size (cm) - Length 1.5 -Current Size (cm) - Width 0.6 -Current Size (cm) - Depth 0.2 -Total Square Cm 0.90 -Photo Taken No -Exudate Amt Small -Exudate Type Serosanguineous -Wound Margin Distinct, Outline Attached -Granulation Amt Small (1-33%) -Necrosis Amt Large (67-100%) -Structure Exposed N/A -Texture (Kathia-wound Skin Appearance) Scarring -Moisture (Kathia-wound Skin Appearance Maceration ) -Color (Kathia-wound Skin Appearance) No Abnormality -Temperature (Kathia-wound Skin No Abnormality Appearance) (Pt Warm) -Tenderness on Palpation (Kathia-wound No Skin Appearance) -Ulcer Cleansing Wound Cleanser -Foul Odor after Cleansing No -Anesthetic Used 4% Lidocaine Solution YOGESH - Nurse 2 - General Ulcer CM Notes Start: 06/24/20 09:43 Freq: Status: Active Protocol: Activity Type Activity Date Activity User E-Sign Co-Sign Detail Recorded Client Recorded Date Recorded By Document 07/01/20 12:29 SALUD [id number] 07/01/20 12:31 SALUD 07/01/20 12:29 Wound Center Nurse 2 [Procedure/Treatment] -Time 12:29 -Correct Patient Yes -Correct Side, Site, Position Yes -Correct Procedure Yes -Procedure Performed Yes -Type of Procedure Debridement -Clinical Debridement Subcutaneous -Tissue Removed Subcutaneous -Post Debridement (cm) - Length 1.6 -Post Debridement (cm) - Width 0.6 -Post Debridement (cm) - Depth 0.2 -Total Square (Post) (cm) 0.96 -Area of Debridement (cm) - Length 1.6 -Area of Debridement (cm) - Width 0.6 -Total Square (Area) (cm) 0.96 -Tunneling No -Undermining/Tunneling No -Circular Undermining No -Wound/Ulcer Outcome Not Healed -Ulcer Cleansing Rinsed/ Irrigated with Saline -Foul Odor after Cleansing No -Bioengineered Tissue Yes -Type of Bioengineered Tissue Epifix -Expiration Date 02/16/25 -Product Lot Number [id number] -Percent Used 100 -Saline Lot Number [id number] -Bleeding Controlled with Pressure -Offloading Yes -Type of Offloading Total Contact Cast (TCC) - Right ($) -Treatment Response Procedure Tolerated Well -Debridement - Subq, 1st 20sq cm No -Apply Skin Sub - 1st 25 sq cm - Feet 1 -Epifix (per sq cm) 4 [See Physician Procedure note for Specifics] Pain Scale: 0-10 Numeric [Pain] -Is Patient Pain Free? Yes YOGESH - Nurse 3 - General Ulcer D/C NN Start: 06/24/20 09:43 Freq: Status: Active Protocol: Activity Type Activity Date Activity User E-Sign Co-Sign Detail Recorded Client Recorded Date Recorded By Document 07/01/20 13:47 [id number] 07/01/20 13:48 07/01/20 13:47 Wound Care Nurse 3 [Wound Dressing] #3 R Plantar Lat -Foul Odor after Cleansing No -Primary Dressing Covered/Secured Dry Gauze with Pain Scale: 0-10 Numeric [Pain] -Is Patient Pain Free? Yes - Visit Discharge [Visit Discharge Information] -Discharge Condition Stable -Ambulatory Status Ambulatory -Transportation Private Auto -Medication Reconcilliation completed Yes & provided to patient/care provider -Clinical Summary of Care Provided Yes Musculoskeletal: No Tenderness to Palpation of Joints or Extremities, Muscle Wasting, - - Dorsal contraction of lesser adjacent toes Neurological: - - Lack of epicritic sensation light touch is consistent with neuropathy status Psych/Mental Status: Normal Affect, Appropriate Debridement Note Post-Debridement Measurements/Treatment WC - Nurse 2 - General Ulcer CM Notes Start: 06/24/20 09:43 Freq: Status: Active Protocol: Activity Type Activity Date Activity User E-Sign Co-Sign Detail Recorded Client Recorded Date Recorded By Document 06/24/20 09:59 [id number] 06/24/20 10:04 Document 07/01/20 12:29 [id number] 07/01/20 12:31 06/24/20 07/01/20 09:59 12:29 Wound Center Nurse 2 #3 R Plantar Lat -Time 09:59 12:29 -Correct Patient Yes Yes -Correct Side, Site, Position Yes Yes -Correct Procedure Yes Yes -Procedure Performed Yes Yes -Type of Procedure Debridement Debridement -Clinical Debridement Subcutaneous Subcutaneous -Tissue Removed Subcutaneous Subcutaneous -Post Debridement (cm) - Length 0.6 1.6 -Post Debridement (cm) - Width 1.8 0.6 -Post Debridement (cm) - Depth 0.1 0.2 -Total Square (Post) (cm) 1.08 0.96 -Area of Debridement (cm) - Length 0.6 1.6 -Area of Debridement (cm) - Width 1.8 0.6 -Total Square (Area) (cm) 1.08 0.96 -Tunneling No No -Undermining/Tunneling No No -Circular Undermining No No -Wound/Ulcer Outcome Not Healed Not Healed -Ulcer Cleansing Rinsed/ Rinsed/ Irrigated with Irrigated with Saline Saline -Foul Odor after Cleansing No No -Bioengineered Tissue Yes Yes -Type of Bioengineered Tissue Epifix Epifix -Expiration Date 02/16/25 02/16/25 -Product Lot Number [id number] -Percent Used 100 100 -Saline Lot Number [id number] -Bleeding Controlled with Pressure Pressure -Offloading No Yes -Type of Offloading Total Contact Cast (TCC) - Right ($) -Treatment Response Procedure Procedure Tolerated Well Tolerated Well -Debridement - Subq, 1st 20sq cm No No -Apply Skin Sub - 1st 25 sq cm - Feet 1 1 -Epifix (per sq cm) 4 4 Pain Scale: 0-10 Numeric Is Patient Pain Free? Yes Yes - Nurse 3 - General Ulcer D/C NN Start: 06/24/20 09:43 Freq: Status: Active Protocol: Activity Type Activity Date Activity User E-Sign Co-Sign Detail Recorded Client Recorded Date Recorded By Document 07/01/20 13:47 [id number] 07/01/20 13:48 07/01/20 13:47 Wound Care Nurse 3 #3 R Plantar Lat -Foul Odor after Cleansing No -Primary Dressing Covered/Secured with Dry Gauze Pain Scale: 0-10 Numeric Is Patient Pain Free? Yes - Visit Discharge Discharge Condition Stable Ambulatory Status Ambulatory Transportation Private Auto Medication Reconcilliation completed & Yes provided to patient/care provider Clinical Summary of Care Provided Yes Wound debrided: plantar lateral foot Laterality: Right Wound Grade/Stage: grade 1 Type of Debridement: Excisional debridement Anesthesia Used: 5% Lidocaine Gel Depth: in the subcutaneous layer Percentage of wound debrided: 100 Instrument Used: #15 blade Tissue Removed: fibrous, devitalized subcutaneous, biofilm, slough Severity: Fat Layer Exposed Amount of bleeding with debridement: Mild Bleeding Controlled with: Pressure Patient tolerated procedure well Assessment/Plan Active Problems (Last Reviewed 06/04/20 @ 18:16 by Nora Jack NP, WATER TREATMENT SPECIALIST-C) Delayed wound healing (Chronic) Ulcer of right foot with fat layer exposed (Chronic) Type 2 diabetes mellitus with diabetic polyneuropathy (Chronic) Assessment: plantar right foot ulcer, grade 1 (healed medial and stable lateral). cellulitis right foot resolved. delayed wound healing right plantar DFU. diabetes with neuropathy Plan: I reviewed and discussed his case. Subcutaneous excisional debridement was performed as noted in the clinical panel. I recommend application of advanced wound healing product, epi-fix. Verbal consent was obtained and this was applied according standard protocol. This was secured with a wound veil and Steri-Strips. He tolerated this well. This is medically necessary for limb salvage. I recommend he offload more with a total contact cast. Verbal consent was obtained and this was also applied according standard protocol in a well- padded neutral position. He tolerated this well. He was advised to keep his dressing and splint clean, dry, and intact until follow-up next week. To reduce overall activity. I reviewed his noninvasive vascular studies which do not demonstrate gross abnormalities. There is potential small vessel abnormalities in a vascular referral will be performed if he has continued delayed in healing. His venous Doppler exams also reviewed reviewed including reflux evaluation he does have venous insufficiency. He was advised to wear compression dressing. To elevate limbs at rest. To perform manual muscular contraction hourly while awake. To avoid salt in the diet. Referral will be performed to the hydrogeology professor via nutritional services will be pursued if nonhealing continues. He is advised to continue to work on maintaining an appropriate diet and glucose management to optimize healing. I recommended nutritional supplementation as well. To return to the wound healing center in 1 week or call sooner if he has any return of infection signs. He is reassured no infection is noted today and I do not recommend additional antibiotics.
[2020-07-08 09:09] VITALS: BP 178/86; PULSE 86; RESP 20; TEMP 36; BMI 35.9
--- NOTE | 2020-07-08 10:31 | PCM.WC.PN ---
(1) Delayed wound healing Status: Chronic Code(s): T14.8XXD - Other injury of unspecified body region, subsequent encounter (2) Ulcer of right foot with fat layer exposed Status: Chronic Code(s): L97.512 - Non-pressure chronic ulcer of other part of right foot with fat layer exposed (3) Type 2 diabetes mellitus with diabetic polyneuropathy Status: Chronic Qualifiers: Diabetes mellitus nursing home insulin use: without truck terminal manager use Qualified Code(s): E11.42 - Type 2 diabetes mellitus with diabetic polyneuropathy Code(s): E11.42 - Type 2 diabetes mellitus with diabetic polyneuropathy Type of Wound Date of Service: 07/08/20 Chief Complaint: right foot ulcer History of Wound: He is following up for chronic right foot ulcers. He denies redness or drainage. He denies fever, chill, nausea, vomiting. He denies other pedal complaints and is amenable to resume the cast today. Progress of Wound: improving - Physical Exam Vital Signs Temp Pulse Resp BP 96.8 F L 86 20 H 178/86 H 07/08/20 09:09 07/08/20 09:09 07/08/20 09:09 07/08/20 09:09 General: Alert, Oriented x3, Cooperative, No apparent distress HEENT: Atraumatic Extremities: No cyanosis, Capillary Refill Less than 3 Seconds, No Calf Tenderness, Diminished Peripheral Pulses, Edema - mild Skin: Ulcer/ Wound - No purulence, erythema, streaking, action. His skin is atrophic and hairless. The ulcer site is reducing Wound Measurements and Assessment WC - Nurse 1 - General Ulcer Measurement Start: 06/24/20 09:43 Freq: Status: Active Protocol: Activity Type Activity Date Activity User E-Sign Co-Sign Detail Recorded Client Recorded Date Recorded By Document 07/08/20 09:09 DL [id number] 07/08/20 09:21 DL 07/08/20 09:09 Wound Center Nurse 1 [Ulcer Assessment] #3 R Plantar Lat -Current Size (cm) - Length 1.2 -Current Size (cm) - Width 0.5 -Current Size (cm) - Depth 0.2 -Total Square Cm 0.60 -Photo Taken No -Wound Margin Distinct, Outline Attached -Granulation Amt Large (67-100%) -Granulation Quality Pale,[place] -Necrosis Amt Small (1-33%) -Necrotic Tissue Type Adherent Slough -Texture (Kathia-wound Skin Appearance) Scarring -Moisture (Kathia-wound Skin Appearance Maceration ) -Color (Kathia-wound Skin Appearance) No Abnormality -Temperature (Kathia-wound Skin No Abnormality Appearance) (Pt Warm) -Tenderness on Palpation (Kathia-wound No Skin Appearance) -Ulcer Cleansing Wound Cleanser -Foul Odor after Cleansing No -Anesthetic Used 4% Lidocaine Solution - Nurse 2 - General Ulcer CM Notes Start: 06/24/20 09:43 Freq: Status: Active Protocol: Activity Type Activity Date Activity User E-Sign Co-Sign Detail Recorded Client Recorded Date Recorded By Document 07/08/20 09:31 [id number] 07/08/20 09:33 SALUD 07/08/20 09:31 Wound Center Nurse 2 [Procedure/Treatment] -Time 09:31 -Correct Patient Yes -Correct Side, Site, Position Yes -Correct Procedure Yes -Procedure Performed Yes -Type of Procedure Debridement -Clinical Debridement Subcutaneous -Tissue Removed Subcutaneous -Post Debridement (cm) - Length 1.2 -Post Debridement (cm) - Width 0.6 -Post Debridement (cm) - Depth 0.1 -Total Square (Post) (cm) 0.72 -Area of Debridement (cm) - Length 1.2 -Area of Debridement (cm) - Width 0.6 -Total Square (Area) (cm) 0.72 -Tunneling No -Undermining/Tunneling No -Circular Undermining No -Ulcer Cleansing Rinsed/ Irrigated with Saline -Foul Odor after Cleansing No -Bioengineered Tissue Yes -Type of Bioengineered Tissue Epifix 18mm Disc -Expiration Date 03/18/25 -Product Lot Number [id number] -Percent Used 100 -Saline Lot Number [id number] -Bleeding Controlled with Pressure -Offloading Yes -Type of Offloading Total Contact Cast (TCC) - Right ($) -Debridement - Subq, 1st 20sq cm No -Apply Skin Sub - 1st 25 sq cm - Feet 1 -Epifix 18mm Disc 3 Query Text:18mm = 3 [See Physician Procedure note for Specifics] Pain Scale: 0-10 Numeric [Pain] -Is Patient Pain Free? Yes - Nurse 3 - General Ulcer D/C NN Start: 06/24/20 09:43 Freq: Status: Active Protocol: Activity Type Activity Date Activity User E-Sign Co-Sign Detail Recorded Client Recorded Date Recorded By Document 07/08/20 09:42 [facility] [id number] 07/08/20 09:43 [facility] 07/08/20 09:42 Wound Care Nurse 3 [Wound Dressing] #3 R Plantar Lat -Primary Dressing Applied Other -Other Dressing epifix per md -Primary Dressing Covered/Secured Other with -Other Covering tcc undercast [Compression Applied] Right -Other tcc undercast [Post Procedure Tolerated] -Treatment Response Procedure Tolerated Well Pain Scale: 0-10 Numeric [Pain] -Is Patient Pain Free? Yes WC - Visit Discharge [Visit Discharge Information] -Discharge Condition Stable -Ambulatory Status Ambulatory -Transportation Private Auto -Accompanied by Musculoskeletal: No Tenderness to Palpation of Joints or Extremities, Muscle Wasting, - - Prominent metatarsal head Neurological: - - Lack of epicritic sensation is consistent with neuropathy status Psych/Mental Status: Normal Affect, Appropriate Debridement Note Post-Debridement Measurements/Treatment WC - Nurse 2 - General Ulcer CM Notes Start: 06/24/20 09:43 Freq: Status: Active Protocol: Activity Type Activity Date Activity User E-Sign Co-Sign Detail Recorded Client Recorded Date Recorded By Document 06/24/20 09:59 MW [id number] 06/24/20 10:04 MW Document 07/01/20 12:29 [id number] 07/01/20 12:31 Document 07/08/20 09:31 [id number] 07/08/20 09:33 06/24/20 07/01/20 07/08/20 09:59 12:29 09:31 Wound Center Nurse 2 #3 R Plantar Lat -Time 09:59 12:29 09:31 -Correct Patient Yes Yes Yes -Correct Side, Site, Position Yes Yes Yes -Correct Procedure Yes Yes Yes -Procedure Performed Yes Yes Yes -Type of Procedure Debridement Debridement Debridement -Clinical Debridement Subcutaneous Subcutaneous Subcutaneous -Tissue Removed Subcutaneous Subcutaneous Subcutaneous -Post Debridement (cm) - Length 0.6 1.6 1.2 -Post Debridement (cm) - Width 1.8 0.6 0.6 -Post Debridement (cm) - Depth 0.1 0.2 0.1 -Total Square (Post) (cm) 1.08 0.96 0.72 -Area of Debridement (cm) - Length 0.6 1.6 1.2 -Area of Debridement (cm) - Width 1.8 0.6 0.6 -Total Square (Area) (cm) 1.08 0.96 0.72 -Tunneling No No No -Undermining/Tunneling No No No -Circular Undermining No No No -Wound/Ulcer Outcome Not Healed Not Healed -Ulcer Cleansing Rinsed/ Rinsed/ Rinsed/ Irrigated with Irrigated with Irrigated with Saline Saline Saline -Foul Odor after Cleansing No No No -Bioengineered Tissue Yes Yes Yes -Type of Bioengineered Tissue Epifix Epifix Epifix 18mm Disc -Expiration Date 02/16/25 02/16/25 03/18/25 -Product Lot Number [id number] -Percent Used 100 100 100 -Saline Lot Number [id number] -Bleeding Controlled with Pressure Pressure Pressure -Offloading No Yes Yes -Type of Offloading Total Contact Total Contact Cast (TCC) - Cast (TCC) - Right ($) Right ($) -Treatment Response Procedure Procedure Tolerated Well Tolerated Well -Debridement - Subq, 1st 20sq cm No No No -Apply Skin Sub - 1st 25 sq cm - Feet 1 1 1 -Epifix (per sq cm) 4 4 -Epifix 18mm Disc 3 Query Text:18mm = 3 Pain Scale: 0-10 Numeric Is Patient Pain Free? Yes Yes Yes - Nurse 3 - General Ulcer D/C NN Start: 06/24/20 09:43 Freq: Status: Active Protocol: Activity Type Activity Date Activity User E-Sign Co-Sign Detail Recorded Client Recorded Date Recorded By Document 07/01/20 13:47 [id number] 07/01/20 13:48 Document 07/08/20 09:42 [facility] [id number] 07/08/20 09:43 [facility] 07/01/20 07/08/20 13:47 09:42 Wound Care Nurse 3 #3 R Plantar Lat -Foul Odor after Cleansing No -Primary Dressing Applied Other -Other Dressing epifix per md -Primary Dressing Covered/Secured with Dry Gauze Other -Other Covering tcc undercast Right -Other tcc undercast Treatment Response Procedure Tolerated Well Pain Scale: 0-10 Numeric Is Patient Pain Free? Yes Yes WC - Visit Discharge Discharge Condition Stable Stable Ambulatory Status Ambulatory Ambulatory Transportation Private Auto Private Auto Accompanied by Medication Reconcilliation completed & Yes provided to patient/care provider Clinical Summary of Care Provided Yes Wound debrided: plantar foot (lateral) Laterality: Left Wound Grade/Stage: grade 1 Type of Debridement: Excisional debridement Anesthesia Used: 5% Lidocaine Gel Depth: in the subcutaneous layer Percentage of wound debrided: 100 Instrument Used: #15 blade Tissue Removed: fibrous, devitalized subcutaneous, biofilm, slough Severity: Fat Layer Exposed Amount of bleeding with debridement: Mild Bleeding Controlled with: Pressure Patient tolerated procedure well Assessment/Plan Active Problems (Last Reviewed 06/04/20 @ 18:16 by Nora Jack NP, HOME HEALTH ATTENDANT-C) Delayed wound healing (Chronic) Ulcer of right foot with fat layer exposed (Chronic) Type 2 diabetes mellitus with diabetic polyneuropathy (Chronic) Assessment: plantar right foot ulcer, grade 1 (lateral). cellulitis right foot resolved. delayed wound healing right plantar DFU. diabetes with neuropathy Plan: I reviewed and discussed his case. Subcutaneous excisional debridement was performed as noted in the clinical panel. I recommend application of advanced wound healing product, epi-fix. Verbal consent was obtained and this was applied according standard protocol. This was secured with a wound veil and Steri-Strips. He tolerated this well. This is medically necessary for limb salvage. I recommend he offload more with a total contact cast. Verbal consent was obtained and this was also applied according standard protocol in a well-padded neutral position. He tolerated this well. He was advised to keep his dressing and splint clean, dry, and intact until follow-up next week. To reduce overall activity. I reviewed his noninvasive vascular studies which do not demonstrate gross abnormalities. There is potential small vessel abnormalities in a vascular referral will be performed if he has continued delayed in healing. His venous Doppler exams also reviewed reviewed including reflux evaluation he does have venous insufficiency. He was advised to wear compression dressing. To elevate limbs at rest. To perform manual muscular contraction hourly while awake. To avoid salt in the diet. Referral will be performed to the scarfing machine operator via nutritional services will be pursued if nonhealing continues. He is advised to continue to work on maintaining an appropriate diet and glucose management to optimize healing. I recommended nutritional supplementation as well. To return to the wound healing center in 1 week or call sooner if he has any return of infection signs. He is reassured no infection is noted today and I do not recommend additional antibiotics.
[2020-07-15 08:59] VITALS: BP 187/85; PULSE 74; RESP 22; TEMP 36.6; BMI 35.9
--- NOTE | 2020-07-15 09:45 | PCM.WC.PN ---
(1) Delayed wound healing Status: Chronic Code(s): T14.8XXD - Other injury of unspecified body region, subsequent encounter (2) Ulcer of right foot with fat layer exposed Status: Chronic Code(s): L97.512 - Non-pressure chronic ulcer of other part of right foot with fat layer exposed (3) Type 2 diabetes mellitus with diabetic polyneuropathy Status: Chronic Qualifiers: Diabetes mellitus fci insulin use: without intermediate project manager use Qualified Code(s): E11.42 - Type 2 diabetes mellitus with diabetic polyneuropathy Code(s): E11.42 - Type 2 diabetes mellitus with diabetic polyneuropathy Type of Wound Date of Service: 07/15/20 Chief Complaint: right foot ulcer History of Wound: He is following up for chronic right foot ulcers. He denies redness or drainage. He denies fever, chill, nausea, vomiting. He denies other pedal complaints and he kept his cast clean and dry last week. He is having a hard time mentally with this cast in place and would like a break this upcoming week. Nursing staff also informed that his cast was wet. Progress of Wound: improving - Physical Exam Vital Signs Temp Pulse Resp BP 97.8 F 74 22 H 187/85 H 07/15/20 08:59 07/15/20 08:59 07/15/20 08:59 07/15/20 08:59 General: Alert, Oriented x3, Cooperative, No apparent distress HEENT: Atraumatic Extremities: No cyanosis, Capillary Refill Less than 3 Seconds, No Calf Tenderness, Diminished Peripheral Pulses, Edema Skin: Ulcer/ Wound - No purulence, erythema, streaking, odor, infection. Ulcer size reduction is noted. The ulcer base is granular and healthy without infection. Skin is atrophic and hairless Wound Measurements and Assessment WC - Nurse 1 - General Ulcer Measurement Start: 06/24/20 09:43 Freq: Status: Active Protocol: Activity Type Activity Date Activity User E-Sign Co-Sign Detail Recorded Client Recorded Date Recorded By Document 07/15/20 08:59 DL [id number] 07/15/20 09:10 DL 07/15/20 08:59 Wound Center Nurse 1 [Ulcer Assessment] #3 R Plantar Lat -Current Size (cm) - Length 0.8 -Current Size (cm) - Width 1 -Current Size (cm) - Depth 0.2 -Total Square Cm 0.8 -Photo Taken No -Exudate Amt Small -Exudate Type Serosanguineous -Wound Margin Distinct, Outline Attached -Granulation Amt Small (1-33%) -Granulation Quality [place] -Necrosis Amt Large (67-100%) -Structure Exposed N/A -Texture (Kathia-wound Skin Appearance) Scarring -Moisture (Kathia-wound Skin Appearance Maceration ) -Color (Kathia-wound Skin Appearance) No Abnormality -Temperature (Kathia-wound Skin No Abnormality Appearance) (Pt Warm) -Tenderness on Palpation (Kathia-wound No Skin Appearance) -Ulcer Cleansing Wound Cleanser -Foul Odor after Cleansing No -Anesthetic Used 4% Lidocaine Solution WC - Nurse 2 - General Ulcer CM Notes Start: 06/24/20 09:43 Freq: Status: Active Protocol: Activity Type Activity Date Activity User E-Sign Co-Sign Detail Recorded Client Recorded Date Recorded By Document 07/15/20 09:40 [email or web address] [id number] 07/15/20 09:44 07/15/20 09:40 Wound Center Nurse 2 [Procedure/Treatment] -Time 09:40 -Correct Patient Yes -Correct Side, Site, Position Yes -Correct Procedure Yes -Procedure Performed Yes -Type of Procedure Debridement -Clinical Debridement Subcutaneous -Tissue Removed Subcutaneous -Post Debridement (cm) - Length 0.9 -Post Debridement (cm) - Width 1.0 -Post Debridement (cm) - Depth 0.2 -Total Square (Post) (cm) 0.90 -Area of Debridement (cm) - Length 0.9 -Area of Debridement (cm) - Width 1.0 -Total Square (Area) (cm) 0.90 -Tunneling No -Undermining/Tunneling No -Circular Undermining No -Wound/Ulcer Outcome Not Healed -Ulcer Cleansing Rinsed/ Irrigated with Saline -Foul Odor after Cleansing No -Bioengineered Tissue Yes -Type of Bioengineered Tissue Epifix 18mm Disc -Bleeding Controlled with Pressure -Offloading Yes -Type of Offloading Surgical Shoe -Treatment Response Procedure Tolerated Well -Debridement - Subq, 1st 20sq cm No -Apply Skin Sub - 1st 25 sq cm - Feet 1 -Epifix 18mm Disc 3 Query Text:18mm = 3 [See Physician Procedure note for Specifics] Pain Scale: 0-10 Numeric [Pain] -Is Patient Pain Free? Yes Musculoskeletal: No Tenderness to Palpation of Joints or Extremities, Muscle Wasting, - - Prominent metatarsal heads Neurological: - - Lack of normal epicritic sensation light touch is consistent with his neuropathy status Psych/Mental Status: Normal Affect, Appropriate Debridement Note Post-Debridement Measurements/Treatment WC - Nurse 2 - General Ulcer CM Notes Start: 06/24/20 09:43 Freq: Status: Active Protocol: Activity Type Activity Date Activity User E-Sign Co-Sign Detail Recorded Client Recorded Date Recorded By Document 06/24/20 09:59 MW [id number] 06/24/20 10:04 MW Document 07/01/20 12:29 JF [id number] 07/01/20 12:31 JF Document 07/08/20 09:31 JF [id number] 07/08/20 09:33 JF Document 07/15/20 09:40 JF [id number] 07/15/20 09:44 JF 06/24/20 07/01/20 07/08/20 09:59 12:29 09:31 Wound Center Nurse 2 #3 R Plantar Lat -Time 09:59 12:29 09:31 -Correct Patient Yes Yes Yes -Correct Side, Site, Position Yes Yes Yes -Correct Procedure Yes Yes Yes -Procedure Performed Yes Yes Yes -Type of Procedure Debridement Debridement Debridement -Clinical Debridement Subcutaneous Subcutaneous Subcutaneous -Tissue Removed Subcutaneous Subcutaneous Subcutaneous -Post Debridement (cm) - Length 0.6 1.6 1.2 -Post Debridement (cm) - Width 1.8 0.6 0.6 -Post Debridement (cm) - Depth 0.1 0.2 0.1 -Total Square (Post) (cm) 1.08 0.96 0.72 -Area of Debridement (cm) - Length 0.6 1.6 1.2 -Area of Debridement (cm) - Width 1.8 0.6 0.6 -Total Square (Area) (cm) 1.08 0.96 0.72 -Tunneling No No No -Undermining/Tunneling No No No -Circular Undermining No No No -Wound/Ulcer Outcome Not Healed Not Healed -Ulcer Cleansing Rinsed/ Rinsed/ Rinsed/ Irrigated with Irrigated with Irrigated with Saline Saline Saline -Foul Odor after Cleansing No No No -Bioengineered Tissue Yes Yes Yes -Type of Bioengineered Tissue Epifix Epifix Epifix 18mm Disc -Expiration Date 02/16/25 02/16/25 03/18/25 -Product Lot Number [id number] -Percent Used 100 100 100 -Saline Lot Number [id number] -Bleeding Controlled with Pressure Pressure Pressure -Offloading No Yes Yes -Type of Offloading Total Contact Total Contact Cast (TCC) - Cast (TCC) - Right ($) Right ($) -Treatment Response Procedure Procedure Tolerated Well Tolerated Well -Debridement - Subq, 1st 20sq cm No No No -Apply Skin Sub - 1st 25 sq cm - Feet 1 1 1 -Epifix (per sq cm) 4 4 -Epifix 18mm Disc 3 Query Text:18mm = 3 Pain Scale: 0-10 Numeric Is Patient Pain Free? Yes Yes Yes 07/15/20 09:40 Wound Center Nurse 2 #3 R Plantar Lat -Time 09:40 -Correct Patient Yes -Correct Side, Site, Position Yes -Correct Procedure Yes -Procedure Performed Yes -Type of Procedure Debridement -Clinical Debridement Subcutaneous -Tissue Removed Subcutaneous -Post Debridement (cm) - Length 0.9 -Post Debridement (cm) - Width 1.0 -Post Debridement (cm) - Depth 0.2 -Total Square (Post) (cm) 0.90 -Area of Debridement (cm) - Length 0.9 -Area of Debridement (cm) - Width 1.0 -Total Square (Area) (cm) 0.90 -Tunneling No -Undermining/Tunneling No -Circular Undermining No -Wound/Ulcer Outcome Not Healed -Ulcer Cleansing Rinsed/ Irrigated with Saline -Foul Odor after Cleansing No -Bioengineered Tissue Yes -Type of Bioengineered Tissue Epifix 18mm Disc -Expiration Date -Product Lot Number -Percent Used -Saline Lot Number -Bleeding Controlled with Pressure -Offloading Yes -Type of Offloading Surgical Shoe -Treatment Response Procedure Tolerated Well -Debridement - Subq, 1st 20sq cm No -Apply Skin Sub - 1st 25 sq cm - Feet 1 -Epifix (per sq cm) -Epifix 18mm Disc 3 Query Text:18mm = 3 Pain Scale: 0-10 Numeric Is Patient Pain Free? Yes - Nurse 3 - General Ulcer D/C NN Start: 06/24/20 09:43 Freq: Status: Active Protocol: Activity Type Activity Date Activity User E-Sign Co-Sign Detail Recorded Client Recorded Date Recorded By Document 07/01/20 13:47 [id number] 07/01/20 13:48 Document 07/08/20 09:42 [facility] [id number] 07/08/20 09:43 [facility] 07/01/20 07/08/20 13:47 09:42 Wound Care Nurse 3 #3 R Plantar Lat -Foul Odor after Cleansing No -Primary Dressing Applied Other -Other Dressing epifix per md -Primary Dressing Covered/Secured with Dry Gauze Other -Other Covering tcc undercast Right -Other tcc undercast Treatment Response Procedure Tolerated Well Pain Scale: 0-10 Numeric Is Patient Pain Free? Yes Yes WC - Visit Discharge Discharge Condition Stable Stable Ambulatory Status Ambulatory Ambulatory Transportation Private Auto Private Auto Accompanied by Medication Reconcilliation completed & Yes provided to patient/care provider Clinical Summary of Care Provided Yes Wound debrided: plantar lateral foot Laterality: Right Wound Grade/Stage: grade 1 Type of Debridement: Excisional debridement Anesthesia Used: 5% Lidocaine Gel Depth: in the subcutaneous layer Percentage of wound debrided: 100 Instrument Used: #15 blade Tissue Removed: fibrous, devitalized subcutaneous, biofilm, slough Severity: Fat Layer Exposed Amount of bleeding with debridement: Mild Bleeding Controlled with: Pressure Patient tolerated procedure well Assessment/Plan Active Problems (Last Reviewed 06/04/20 @ 18:16 by Nora Jack NP, CLINIC MD ASSOCIATE-C) Delayed wound healing (Chronic) Ulcer of right foot with fat layer exposed (Chronic) Type 2 diabetes mellitus with diabetic polyneuropathy (Chronic) Assessment: plantar right foot ulcer, grade 1 (lateral). cellulitis right foot resolved. delayed wound healing right plantar DFU. diabetes with neuropathy Plan: I reviewed and discussed his case. Subcutaneous excisional debridement was performed as noted in the clinical panel. I recommend application of advanced wound healing product, epi-fix. Verbal consent was obtained and this was applied according standard protocol. This was secured with a wound veil and Steri-Strips. He tolerated this well. This is medically necessary for limb salvage. I recommend he offload more with a total contact cast. However, he will take a break this week. He was advised to keep his dressing and offloading boot or surgical shoe clean, dry, and intact until follow-up next week. To reduce overall activity. I reviewed his noninvasive vascular studies which do not demonstrate gross abnormalities. There is potential small vessel abnormalities. Although he is making progress, it is slow and I recommend a vascular referral for arterial and venous evaluation at this time. A referral to Dr. Tipton was initiated today. His venous Doppler exams also reviewed reviewed including reflux evaluation he does have venous insufficiency. He was advised to wear compression dressing. To elevate limbs at rest. To perform manual muscular contraction hourly while awake. To avoid salt in the diet. Referral will be performed to the drama teacher via nutritional services will be pursued if nonhealing continues. He is advised to continue to work on maintaining an appropriate diet and glucose management to optimize healing. I recommended nutritional supplementation as well. To return to the wound healing center in 1 week or call sooner if he has any return of infection signs. He is reassured no infection is noted today and I do not recommend additional antibiotics.
[2020-07-15 09:47] VITALS: BP 153/71; PULSE 64; RESP 20
== END 2020-07-18 23:59 ==
LOC: WC 09:15
PROVIDERS: PCP Nurse Practitioner; Referring Provider Podiatrist; Visit Provider Podiatrist
DX: E11.621 Type 2 diabetes mellitus with foot ulcer (principal); L97.512 Non-pressure chronic ulcer of other part of right foot with fat layer exposed; E11.42 Type 2 diabetes mellitus with diabetic polyneuropathy; T14.8XXD Other injury of unspecified body region, subsequent encounter; E11.51 Type 2 diabetes mellitus with diabetic peripheral angiopathy without gangrene; L03.115 Cellulitis of right lower limb; I87.2 Venous insufficiency (chronic) (peripheral)
CPT/HCPCS: 15275; 15276; 29445; 99213; Q4186; G0463

== ENCOUNTER 2020-08-05 14:47 | Emergency (ER) | payer MEDICAID, SELFPAY ==
[2020-08-05 14:48] VITALS: BP 139/78; PULSE 69; PULSE 73; RESP 16; TEMP 36.1; O2SAT 98; O2SAT 99; BMI 35.8; BMI 37.5
== END 2020-08-05 15:41 | disposition left against medical advice (07) ==
LOC: ED 15:43
PROVIDERS: Emergency Provider Emergency Medicine; PCP Nurse Practitioner
DX: Z53.21 Procedure and treatment not carried out due to patient leaving prior to being seen by health care provider (principal)

== ENCOUNTER 2020-08-12 13:15 | Outpatient (RCR) | payer MEDICAID, SELFPAY ==
[2020-07-19 00:23] VITALS: BP 153/71; PULSE 64; RESP 20; TEMP 36.6
[2020-07-22 09:27] VITALS: BP 160/78; PULSE 71; RESP 16; BMI 35.9
[2020-07-22 10:11] VITALS: TEMP 35.5
[2020-07-22 10:12] VITALS: BMI 35.9
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
[2020-07-29 09:18] VITALS: BP 167/78; PULSE 68; RESP 18; TEMP 36.1; BMI 35.9
[2020-07-29 09:40] VITALS: BP 165/78
--- NOTE | 2020-07-29 23:08 | PCM.WC.PN ---
(1) Delayed wound healing Status: Chronic Code(s): T14.8XXD - Other injury of unspecified body region, subsequent encounter (2) Ulcer of right foot with fat layer exposed Status: Chronic Code(s): L97.512 - Non-pressure chronic ulcer of other part of right foot with fat layer exposed (3) Type 2 diabetes mellitus with diabetic polyneuropathy Status: Chronic Qualifiers: Code(s): E11.42 - Type 2 diabetes mellitus with diabetic polyneuropathy Type of Wound Date of Service: 07/29/20 Chief Complaint: right foot ulcers History of Wound: He is following up for chronic right foot ulcers. He denies redness or drainage. He denies fever, chill, nausea, vomiting. He denies other pedal complaints and he presents with a wet total contact cast today that he tried to clean by pouring peroxide on his foot after he got jelly on his cast. He did get his foot wet and he is maceration. He denies any lower extremity injuries. Progress of Wound: Healed skin tear, plantar medial right foot. Improving right foot ulcer - Physical Exam Vital Signs Temp Pulse Resp BP 97 F L 68 18 165/78 H 07/29/20 09:18 07/29/20 09:18 07/29/20 09:18 07/29/20 09:40 General: Alert, Oriented x3, Cooperative HEENT: Atraumatic Extremities: No cyanosis, Capillary Refill Less than 3 Seconds, No Calf Tenderness, Diminished Peripheral Pulses, Edema Skin: Ulcer/ Wound - No purulence, erythema, streaking, odor, infection. The peripheral skin is hairless and atrophic. There is significant maceration and green discoloration noted on his inner dressing layers. The ulcer bed is granular. This previous skin tear is healed Wound Measurements and Assessment WC - Nurse 1 - General Ulcer Measurement Start: 07/22/20 09:27 Freq: Status: Active Protocol: Activity Type Activity Date Activity User E-Sign Co-Sign Detail Recorded Client Recorded Date Recorded By Document 07/29/20 09:18 DL [id number] 07/29/20 09:23 DL 07/29/20 09:18 Wound Center Nurse 1 [Ulcer Assessment] #3 R Plantar Lat -Current Size (cm) - Length 0.5 -Current Size (cm) - Width 0.9 -Current Size (cm) - Depth 0.3 -Total Square Cm 0.45 -Photo Taken No -Exudate Amt Medium -Exudate Type Serosanguineous -Wound Margin Distinct, Outline Attached -Granulation Amt None Present (0 %) -Necrosis Amt Large (67-100%) -Necrotic Tissue Type Adherent Slough -Structure Exposed N/A -Texture (Kathia-wound Skin Appearance) Scarring -Moisture (Kathia-wound Skin Appearance Maceration ) -Color (Kathia-wound Skin Appearance) No Abnormality -Temperature (Kathia-wound Skin No Abnormality Appearance) (Pt Warm) -Tenderness on Palpation (Kathia-wound No Skin Appearance) -Ulcer Cleansing Wound Cleanser -Foul Odor after Cleansing No -Anesthetic Used 4% Lidocaine Solution YOGESH - Nurse 2 - General Ulcer CM Notes Start: 07/22/20 09:27 Freq: Status: Active Protocol: Activity Type Activity Date Activity User E-Sign Co-Sign Detail Recorded Client Recorded Date Recorded By Document 07/29/20 09:30 SALUD [id number] 07/29/20 09:33 SALUD 07/29/20 09:30 Wound Center Nurse 2 [Procedure/Treatment] -Time 09:31 -Correct Patient Yes -Correct Side, Site, Position Yes -Correct Procedure Yes -Procedure Performed Yes -Type of Procedure Debridement -Clinical Debridement Subcutaneous -Tissue Removed Subcutaneous -Post Debridement (cm) - Length 0.8 -Post Debridement (cm) - Width 0.5 -Post Debridement (cm) - Depth 0.2 -Total Square (Post) (cm) 0.40 -Area of Debridement (cm) - Length 0.8 -Area of Debridement (cm) - Width 0.5 -Total Square (Area) (cm) 0.40 -Tunneling No -Undermining/Tunneling No -Circular Undermining No -Wound/Ulcer Outcome Not Healed -Ulcer Cleansing Rinsed/ Irrigated with Saline -Foul Odor after Cleansing No -Bioengineered Tissue No -Bleeding Controlled with Pressure -Offloading Yes -Type of Offloading Camwalker -Treatment Response Procedure Tolerated Well -Debridement - Subq, 1st 20sq cm Yes [See Physician Procedure note for Specifics] Pain Scale: 0-10 Numeric [Pain] -Is Patient Pain Free? Yes YOGESH - Nurse 3 - General Ulcer D/C NN Start: 07/22/20 09:27 Freq: Status: Active Protocol: Activity Type Activity Date Activity User E-Sign Co-Sign Detail Recorded Client Recorded Date Recorded By Document 07/29/20 09:40 RB [id number] 07/29/20 09:41 RB 07/29/20 09:40 Wound Care Nurse 3 [Wound Dressing] #3 R Plantar Lat -Ulcer Cleansing Wound Cleanser -Primary Dressing Applied Aquacel AG 4x4 -Primary Dressing Covered/Secured Dry Gauze,Dry with Gauze & Roll Gauze,Secured with Tape -Aquacel AG 4x4 1 [Post Procedure Tolerated] -Treatment Response Procedure Tolerated Well Vital Signs [Blood Pressure] -Blood Pressure (90/60-120/80) 165/78 H -Blood Pressure Mean (mm Hg) 107 -Source Monitor -Position Semi-Fowlers -Blood Pressure Location Left Arm Pain Scale: 0-10 Numeric [Pain] -Is Patient Pain Free? Yes Teaching: Wound Center [Wound Center Education] (Items with an * have Printed Materials Available- Please identify what is given to patient under the Teaching materials given to patient and caregiver Section. Dressing Your Wound -Person Taught Patient -Teaching Method Demonstration -Response to teaching Verbalize understanding - Visit Discharge [Visit Discharge Information] -Discharge Condition Stable -Ambulatory Status Ambulatory -Transportation Private Auto -Medication Reconcilliation completed No & provided to patient/care provider -Clinical Summary of Care Provided Yes Musculoskeletal: No Tenderness to Palpation of Joints or Extremities, Muscle Wasting, - - Prominent metatarsal heads Neurological: - - Lack of normal epicritic sensation light touch is consistent with neuropathy status Psych/Mental Status: Normal Affect, Appropriate Debridement Note Post-Debridement Measurements/Treatment WC - Nurse 2 - General Ulcer CM Notes Start: 07/22/20 09:27 Freq: Status: Active Protocol: Activity Type Activity Date Activity User E-Sign Co-Sign Detail Recorded Client Recorded Date Recorded By Document 07/22/20 09:55 [id number] 07/22/20 09:58 Document 07/29/20 09:30 [id number] 07/29/20 09:33 07/22/20 07/29/20 09:55 09:30 Wound Center Nurse 2 #3 R Plantar Lat -Time 09:56 09:31 -Correct Patient Yes Yes -Correct Side, Site, Position Yes Yes -Correct Procedure Yes Yes -Procedure Performed Yes Yes -Type of Procedure Debridement Debridement -Clinical Debridement Subcutaneous Subcutaneous -Tissue Removed Subcutaneous Subcutaneous -Post Debridement (cm) - Length 0.8 0.8 -Post Debridement (cm) - Width 1.0 0.5 -Post Debridement (cm) - Depth 0.3 0.2 -Total Square (Post) (cm) 0.80 0.40 -Area of Debridement (cm) - Length 0.8 0.8 -Area of Debridement (cm) - Width 1.0 0.5 -Total Square (Area) (cm) 0.80 0.40 -Tunneling No No -Undermining/Tunneling No No -Circular Undermining No No -Wound/Ulcer Outcome Not Healed Not Healed -Ulcer Cleansing Rinsed/ Rinsed/ Irrigated with Irrigated with Saline Saline -Foul Odor after Cleansing No No -Bioengineered Tissue No No -Bleeding Controlled with Pressure Pressure -Offloading Yes Yes -Type of Offloading Total Contact Camwalker Cast (TCC) - Right ($) -Treatment Response Procedure Procedure Tolerated Well Tolerated Well -Debridement - Subq, 1st 20sq cm Yes Yes Pain Scale: 0-10 Numeric Is Patient Pain Free? Yes Yes - Nurse 3 - General Ulcer D/C NN Start: 07/22/20 09:27 Freq: Status: Active Protocol: Activity Type Activity Date Activity User E-Sign Co-Sign Detail Recorded Client Recorded Date Recorded By Document 07/22/20 10:11 [facility] [id number] 07/22/20 10:12 [facility] Document 07/29/20 09:40 RB [id number] 07/29/20 09:41 RB 07/22/20 07/29/20 10:11 09:40 Wound Care Nurse 3 #3 R Plantar Lat -Ulcer Cleansing Rinsed/ Wound Cleanser Irrigated with Saline -Foul Odor after Cleansing No -Primary Dressing Applied Aquacel AG 2x2 Aquacel AG 4x4 -Primary Dressing Covered/Secured with Other Dry Gauze,Dry Gauze & Roll Gauze,Secured with Tape -Other Covering tcc undercast -Aquacel AG 4x4 1 -Aquacel AG 2x2 1 Treatment Response Procedure Procedure Tolerated Well Tolerated Well Vital Signs Temperature (97.8 F-99.1 F) 96 F L Temperature Source Temporal Blood Pressure (90/60-120/80) 165/78 H Blood Pressure Mean (mm Hg) 107 Source Monitor Position Semi-Fowlers Blood Pressure Location Left Arm Pain Scale: 0-10 Numeric Is Patient Pain Free? Yes Yes Teaching: Wound Center Dressing Your Wound -Person Taught Patient -Teaching Method Demonstration -Response to teaching Verbalize understanding WC - Visit Discharge Discharge Condition Stable Stable Ambulatory Status Ambulatory Ambulatory Transportation Private Auto Private Auto Medication Reconcilliation completed & No provided to patient/care provider Clinical Summary of Care Provided Yes Wound debrided: plantar lateral forefoot Laterality: Right Wound Grade/Stage: grade 1 Type of Debridement: Excisional debridement Anesthesia Used: 5% Lidocaine Gel Depth: in the subcutaneous layer Percentage of wound debrided: 100 Instrument Used: #15 blade Tissue Removed: fibrous, devitalized subcutaneous tissue, biofilm, slough Severity: Fat Layer Exposed Amount of bleeding with debridement: Mild Bleeding Controlled with: Pressure Patient tolerated procedure well Assessment/Plan Active Problems (Last Reviewed 06/04/20 @ 18:16 by Nora Jack NP, CORRESPONDENCE SECTION SUPERVISOR-C) Delayed wound healing (Chronic) Ulcer of right foot with fat layer exposed (Chronic) Type 2 diabetes mellitus with diabetic polyneuropathy (Chronic) Assessment: plantar right foot ulcer, grade 1 (lateral). delayed wound healing right plantar DFU. diabetes with neuropathy Plan: I reviewed and discussed his case. Subcutaneous excisional debridement was performed as noted in the clinical panel. He completed a course of advanced wound healing product, epifix. I recommend transition to Sheila. He tolerated this well. This is medically necessary for limb salvage. I recommend he offload more with a total contact cast. This will be considered next week after his maceration has resolved. To resume offloading. He denies having a surgical shoe or cam walker at home. A surgical shoe was fitted today with dual density offloading Plastizote liners to take pressure off of the ulcer site. To reduce overall activity. I reviewed his noninvasive vascular studies which do not demonstrate gross abnormalities. There is potential small vessel abnormalities. Although he is making progress, it is slow and I recommend a vascular referral for arterial and venous evaluation at this time. A referral to Dr. Tipton was initiated previously. His venous Doppler exams also reviewed reviewed including reflux evaluation he does have venous insufficiency. He was advised to wear compression dressing. To elevate limbs at rest. To perform manual muscular contraction hourly while awake. To avoid salt in the diet. Referral will be performed to the silversmith apprentice via nutritional services will be pursued if nonhealing continues. He is advised to continue to work on maintaining an appropriate diet and glucose management to optimize healing. I recommended nutritional supplementation as well. To return to the wound healing center in 1 week or call sooner if he has any return of infection signs. He is reassured no infection is noted today and I do not recommend additional antibiotics.
[2020-08-05 13:15] VITALS: BP 153/75; RESP 18; TEMP 35.7; BMI 35.9
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
[2020-08-12 13:21] VITALS: BP 179/83; PULSE 77; RESP 18; TEMP 35.7; BMI 35.9
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
== END 2020-08-17 23:59 ==
LOC: WC 13:15
PROVIDERS: PCP Nurse Practitioner; Referring Provider Podiatrist; Visit Provider Podiatrist
DX: E11.621 Type 2 diabetes mellitus with foot ulcer (principal); L97.512 Non-pressure chronic ulcer of other part of right foot with fat layer exposed; E11.42 Type 2 diabetes mellitus with diabetic polyneuropathy; I87.2 Venous insufficiency (chronic) (peripheral)
CPT/HCPCS: 11042; 29445

== ENCOUNTER → 2020-08-27 | Outpatient (CLI) | payer MEDICAID, SELFPAY ==
[2020-08-27 14:33] VITALS: BMI 37.6
[2020-08-27 22:05] LABS: Absolute Neutrophil Count 5.1 X10^3/uL (2.0-7.7); Basophil# 0.06 X10^3/uL; Basophil% 0.6 % (0-1); Eosinophil# 0.31 X10^3/uL; Eosinophils% 3.1 % (0-5); Hematocrit 41.2 % (40-54); Hemoglobin 13.1 g/dL (13.0-16.5); Lymphocyte % 36.3 % (19-41); Mean Corp Hgb Conc 31.8 g/dL (32-36); Mean Corpuscular Hgb 29.6 pg (27.0-32.0); Mean Platelet Vol. 11.3 fl (6.2-12.0); Monocyte# 0.68 X10^3/uL; Monocyte% 6.9 % (0-10); NRBC Flagged by Analyzer 0 % (0-5); Neutrophil # 5.13 X10^3/uL (2.7-7.7); Neutrophil % 51.8 % (47-70); Platelet Count 246 K/mm3 (150-450); Red Blood Count 4.43 M/mm3 (4.6-6.2); White Blood Count 9.9 K/mm3 (4.4-11.0)
[2020-08-27 22:26] LABS: ALB/GLOB Ratio 0.9 RATIO (0.9-2.4); AST(SGOT) 13 U/L (15-37); Alanine Aminotransfer ALT/SGPT 29 U/L (16-61); Albumin, Serum 3.8 g/dL (3.2-5.0); Alkaline Phosphatase 86 U/L (45-117); Anion Gap 5 (5-15); BUN 17 mg/dL (7-18); BUN/Creat Ratio 18.6 RATIO (10-20); Calcium,Total 9.1 mg/dL (8.5-10.1); Chloride 105 mmol/L (98-107); Cholesterol 160 mg/dL (200); Creatinine, Serum 0.92 mg/dL (0.70-1.30); EST Glomerular Filtration Rate 90 mL/min (>60); Est Glom Filt Rate - Afr Amer 108 mL/min (>60); Globulin 4.1 g/dL (2.2-4.2); Glucose 139 mg/dL (74-106); High Density Lipoprotein 35 mg/dL; Protein, Total 7.9 g/dL (6.4-8.2); Sodium Level 139 mmol/L (136-145); Triglycerides 169 mg/dL; Very Low Density Lipoprotein 34 mg/dL (5-40)
[2020-08-27 22:34] LABS: Hemoglobin A1c 6.7 % (3.8-5.6)
== END | disposition home or self-care (01) ==
PROVIDERS: PCP Nurse Practitioner; Referring Provider Nurse Practitioner; Visit Provider Nurse Practitioner
DX: E11.42 Type 2 diabetes mellitus with diabetic polyneuropathy (principal); E08.621 Diabetes mellitus due to underlying condition with foot ulcer; L97.509 Non-pressure chronic ulcer of other part of unspecified foot with unspecified severity
CPT/HCPCS: 80053; 80061; 83036; 83735; 85025

== ENCOUNTER 2020-09-15 11:19 | Day surgery (SDC) | payer MEDICAID, SELFPAY ==
[2020-08-27 14:33] VITALS: BMI 37.6
[2020-09-09 09:19] VITALS: BMI 35.8
[2020-09-15 11:44] VITALS: BP 154/72; PULSE 63; RESP 16; TEMP 36.6; O2SAT 96; BMI 37.5
[2020-09-15] MEDS: Lactated Ringers 1,000 ML 80 ML IV (12:04)
[2020-09-15 12:21] LABS: Bedside Glucose 148 mg/dL (70-110)
--- NOTE | 2020-09-15 12:40 | RAD_ITS ---
STUDY: X-RAY - RIGHT FOOT CLINICAL: Male, 60 years old. 4TH RIGHT FOOT METATARSAL HEAD RESECTION, WITH ULCER EXCISION. TECHNIQUE: 4 C-arm view(s) of the foot. 6 second fluoroscopy time. COMPARISON: 08/26/2020. FINDINGS: 4 limited [id number] C-arm images show resection of the distal shaft, head and neck of the fourth metatarsal. Correlate with procedure note. Electronically Signed: Brian Phan MD at 19:26 EST , Service support , RAD/Foot min 3 Views
--- NOTE | 2020-09-15 13:00 | BON_PTH ---
PATIENT: BROOKS REA [place] [facility] [id number] AGE/SX: 60/M ROOM: RE09/15/[address]: Dr. Allison Swift DPM : 1960 BED: DIS: 09/15/2020 SPEC #: [id number] RECD: 09/15/20 14:53 STATUS: NATTY DARRELL #: [id number] MYRNA: 09/15/20 13:[address]: Allison Swift DEPT: SURGICAL PATHOLOGY RECD BY: Alex Lenz ENTERED: 09/16/20 07:18 SP TYPE: Bone OTHR DR: Nora Jack, SWINGING CUT OFF SAW OPERATOR-C Tissues: Bone of foot, NOS Procedures: Decalcification bone/plaque Surgery Specimen Level III HEADER OPERATION: Foot fourth metatarsal head resection with ulcer excision PRE-OP DIAGNOSIS: Right foot ulcer with fat layer exposed; deformity of metatarsal right foot TISSUE SUBMITTED: Right fourth metatarsal head MICROSCOPIC DIAGNOSIS Right fourth metatarsal head, excision: Fragments of osseocartilaginous tissue with rare focal reparative change. Fibrofatty tissue with no significant pathologic change. No evidence of osteomyelitis. AM:joe 09/21/2020 MICROSCOPIC DESCRIPTION Slides are reviewed. GROSS DESCRIPTION Received in fixative is one container labeled with the patient's name and designated right fourth metatarsal head. The specimen consists of an elongated fragment of bone measuring 3.5 x 1.5 x 1.2 cm. Retread Technician longitudinal sections are submitted in two cassettes after decalcification. / AM:joe 09/16/20 TC:5 CPT: 32437, 92194
[2020-09-15] MEDS: Lidocaine 1% (20 ml mdv) 20 ML Vial (13:24)
[2020-09-15] MEDS: Bupivacaine Mpf 0.5% 30 ML VIAL (13:24)
--- NOTE | 2020-09-15 14:18 | PCM.OPRPT ---
Problem List (1) Ulcer of right foot with fat layer exposed Status: Chronic (2) Deformity of metatarsal Status: Chronic (3) Delayed wound healing Status: Chronic (4) Hammer toe of right foot Status: Chronic Comment: with prominent metatarsal heads Report of Operation Date of Procedure: 09/15/20 Pre-Operative Diagnosis: Chronic ulcer right foot with delayed healing. Prominent metatarsal head, fourth right Post-Operative Diagnosis: Chronic ulcer right foot with delayed healing. Prominent metatarsal head, fourth right Surgery/Procedure Performed:: Fourth metatarsal head excision, right foot. Excision of ulcer with closure, right foot Description of Surgical Findings:: Hemostasis: Well-padded pneumatic right ankle tourniquet, 250 mmHg, 33 minutes Materials: 2-0 and 3-0 Vicryl, 2-0 and 3-0 nylon Specimens were sent Complications: None The patient tolerated the procedure and anesthesia well. He was transported to the PACU with vital signs stable and vascular status intact to the right lower extremity. Postoperative x-rays were obtained while in the operating room confirming adequate fourth metatarsal head resection without any acute injuries or foreign bodies. He will be discharged home today and postoperative orders were entered electronically. finishing area supervisor: yes - Surgeon: Allison Swift DPM. Roving Frame Tender: Rain Pineda PGY3 Type of Anesthesia:: Local MAC - Preoperative: 10 cc of one-to-one mixture of 1% lidocaine plain and 0.5% Marcaine plain administered in typical for 3 block fashion, right foot Postoperative: 10 cc of one-to-one mixture 1% lidocaine plain and 0.5% Marcaine plain ministered and typical local infiltrative manner, right foot Specimen's removed: Right fourth metatarsal head sent to pathology and microbiology (aerobic, anaerobic, acid-fast, fungal) Estimated Blood Loss (mL): <100mL Description of Procedure: Indications: This 60-year-old male with significant past medical history of diabetes with neuropathy, COPD, history of pulmonary embolism, and hyperlipidemia has been undergoing comprehensive wound healing management at the wound center for chronic plantar lateral right foot ulcer that corresponds with his prominent fourth metatarsal head. He has also recently had intermittent cellulitis with recent deeper capsular tissue exposed. This was improving with oral antibiotics, serial debridements, and Dakin's solution wet to dry dressings. He is also he had prior advanced wound healing product application and total contact cast for offloading. His vascular status appears to be overall intact. He has ongoing delayed healing. Preoperative x-rays demonstrate corresponding fourth metatarsal head near the clinical ulcer site without radiographic osseous destruction, soft tissue emphysema, foreign body, fracture, or dislocation. Dorsal contraction of the lesser toes with prominent metatarsal heads is also appreciated. It is noted that he does have peripheral neuropathy. The preoperative indication, planned procedure, possible benefits, risk, complications, and anticipated healing time management were reviewed and discussed with the patient. He understands and elects to proceed with surgery at this time. This is not a true elective surgery nor is it an emergency surgery. This is considered a curative surgery for limb salvage. No guarantees were made. He understands the risk and complications include but are not limited to the following: pain, swelling, scarring, need for further surgery, transfer lesions including calluses or ulcers, delayed healing or nonhealing, continued or recurrent infections, blood clot, allergic reaction, floating toe, loss of limb, function, life. I answered all of his questions. The informed surgical consent and limb were signed. Preoperative history and physical exam and clearance were performed with Nora Jack clinical nurse practitioner and his diagnostic data was also reviewed. He also understands he is undergoing surgery at the time of COVID-19 pandemic and there is an inherent risk with any activity in a healthcare facility. He understands the risk and benefits and elects to proceed forward as recommended. He also understands appropriate precautions are being taken at the facility to prevent exposure. Procedure in detail: The patient was transferred to the operating room via cart and placed on the operating table in the supine position. Final verification of patient, surgery, and limb designation was performed via the timeout procedure. IV antibiotics were administered by the anesthesia team. Intravenous sedation was initiated by the anesthesia team. Local anesthetic was administered by the podiatry team as noted. Well-padded pneumatic right ankle tourniquet was placed. The right lower extremity was prepped and draped in the usual aseptic manner and surgery proceeded as the following: An Esmarch bandage was used to exsanguinate the limb and the tourniquet was inflated at this time. Attention was directed to the dorsal aspect of the right foot over the fourth metatarsal phalangeal joint. An incision was made through the skin. Care was taken to identify, protect, and retract all neurovascular structures at this point and throughout the remainder of surgery. Blunt dissection was performed and the metatarsophalangeal joint was exposed taking care to retract the extensor digitorum longus tendon medially. A clean 15 blade was used to make a capsular incision to free the fourth metatarsal head from the adjacent structures. Next, the sagittal saw was used to make a bone cut to further resect the fourth metatarsal head from adjacent structures. This was removed in total and sent to both microbiology and pathology. Saline irrigation was performed. It was noted that this bone was healthy in appearance; firm without any discoloration or adjacent devitalized tissue. There was no necrosis or purulence noted on the adjacent tissue. Attention was next directed to the plantar foot. The ulcer site which measured 1.2 x 1.4 x 0.4 cm with granular base. The ulcer was excised with a 15 blade scalpel and this as removed from the operating table this time. Post excision measurement was 3.6 cm x 1.8 cm. The ulcer ellipse incision was extended distally and proximally in a rotational manner and the skin was gently mobilized to allow rotational skin plasty closure. No touch technique was utilized and reapproximation of skin edges were performed without tension. The tourniquet was deflated prior to complete wound closure, and minimal electrocauterization was performed to control hemostasis in addition to pressure application. The capsule was gently reapproximated with Vicryl and additional horizontal mattress, retention vertical mattress, and simple sutures were used to reapproximate the skin edges with 2-0 nylon plantarly and 3-0 nylon dorsally. Brisk capillary refill time was noted to all digits of the right foot and there was no pulsatile bleeding. The postoperative intraoperative fluoroscopy x-ray was obtained which demonstrated adequate for metatarsal head resection without acute injuries or foreign bodies. A postoperative dressing was applied with Betadine soaked Adaptic, gauze, abdominal pad, Kerlix and Jose wrap. After procedure: The patient tolerated the procedure and anesthesia well. He was transferred to the PACU with vital signs stable and vascular status intact to the right lower extremity. He was advised to ice and elevate for pain and inflammation management. He was advised to keep his dressing clean, dry, and intact until follow-up tomorrow (wound center). Postoperative pain medications were prescribed and sent electronically to [facility] pharmacy. He was advised to take only if needed for pain in a safe manner. To heel weightbearing surgical shoe. He was also advised to use his cane to keep weight off of his forefoot. Postoperative orders were entered electronically. His pathology and microbiology results are pending. Allison Swift DPM, [facility] [place] Grafts/Implants Used: None - Complications None - Admit VTE Documentation VTE Present on Admission: No VTE Mechan Device Prophylaxis: SCD's VTE Pharm Prophylaxis ordered?: No Reason prophylaxis not ordered:: Procedure Not Indicated - He will continue with ambulation.
--- NOTE | 2020-09-15 14:19 | PCM.DC.POD ---
Discharge Activity: May not drive while taking narcotic pain medications., May Shower - only with a shower bag Weight Bearing Status: Partial weight bearing - heel weightbear in surgical shoe and use cane only if needed Keep extremity elevated above heart level: Right Leg Call your doctor if your incision/area has: Continuous Slow Oozing, Sudden Increased Bleeding, Increased Pain/ Swelling, Increased Redness, Foul Smelling Discharge, Swelling at the incision site Call your doctor if you observe: Fever of 101 or Higher, Calf discomfort, Uncontrolled pain Cleanse incision/area with: Keep Dressing Clean & Dry Allergies/Adverse Reactions: Allergies canagliflozin [From Invokana] Allergy (Severe, Verified 09/08/20 08:02) FLU SYMPTOMS heparin Allergy (Severe, Verified 09/08/20 08:02) Anaphylaxis Medications to take at Discharge Gabapentin 800 mg PO BID 04/18/20 Insulin Glargine,Hum.rec.anlog [Lantus Solostar] 65 unit SUBCUT DAILY 04/18/20 Metformin HCl 1,000 mg PO BID 04/18/20 Pioglitazone HCl 45 mg PO DAILY 04/18/20 tramadol 50 mg tablet 100 mg PO Q8H PRN #180 tab 04/23/20 Fluzone Quad [id number] (PF) 60 mcg (15 mcg x 4)/0.5 mL IM suspension 60 mcg IM ONCE #0.5 ml NS 06/04/20 Amoxicillin/Potassium Clav [Augmentin 875-125 Tablet] 1 ea PO BID 7 Days #14 tab 09/09/20 Sulfamethoxazole/Trimethoprim [Bactrim Ds Tablet] 1 ea PO BID 7 Days #14 tab 09/09/20 Hydrocodone/Acetaminophen [[place] 5-325 Tablet] 1 ea PO Q6H PRN PRN 4 Days #16 tab 09/15/20 The following prescriptions were given: Hydrocodone/Acetaminophen [[place] 5-325 Tablet] 1 ea PO Q6H PRN PRN 4 Days #16 tab PRN Reason: Pain Score 4-10 Transmission Status: Received by [facility] Primary Care Physician: Nora Jack NP, [employer]HIB[employer] ARTIST-C [Primary Care Provider] - Test Results: Test results from this visit will be discussed in further detail at your follow-up appointment, if applicable. Please Follow Up With: Allison Swift DPM When: tomorrow wound care center. Call [phone] sooner if questions/concerns Proposed Discharge Date: 09/15/20
[2020-09-15 14:25] VITALS: BP 130/81; BP 154/72; PULSE 58; RESP 16; TEMP 36.3; O2SAT 97
[2020-09-15 14:30] VITALS: BP 142/68; BP 154/72; PULSE 55; RESP 16; O2SAT 99
[2020-09-15 14:35] VITALS: BP 154/72; BP 157/74; PULSE 54; RESP 16; O2SAT 100
[2020-09-15 14:40] VITALS: BP 154/72; BP 157/83; PULSE 54; RESP 16; TEMP 36.1; O2SAT 100
[2020-09-15 15:04] VITALS: BP 137/104; BP 154/72; PULSE 60; RESP 18; TEMP 36.3; O2SAT 98
== END 2020-09-15 15:13 | disposition home or self-care (01) ==
LOC: SDC 11:20 → AC 11:21
PROVIDERS: PCP Nurse Practitioner; Referring Provider Podiatrist; Visit Provider Podiatrist
PROC: (CPT 11423; principal; 2020-09-15 12:45)
DX: E11.621 Type 2 diabetes mellitus with foot ulcer (principal); L97.512 Non-pressure chronic ulcer of other part of right foot with fat layer exposed; M20.41 Other hammer toe(s) (acquired), right foot; J44.9 Chronic obstructive pulmonary disease, unspecified; E78.5 Hyperlipidemia, unspecified; M19.012 Primary osteoarthritis, left shoulder; M17.12 Unilateral primary osteoarthritis, left knee; E11.40 Type 2 diabetes mellitus with diabetic neuropathy, unspecified; K21.9 Gastro-esophageal reflux disease without esophagitis; Z86.718 Personal history of other venous thrombosis and embolism; Z20.828 Contact with and (suspected) exposure to other viral communicable diseases; Z79.4 Long term (current) use of insulin; Z79.899 Other long term (current) drug therapy
CPT/HCPCS: 11423; 12042; 28288; 73630; 76000; 82962; 87015; 87070; 87075; 87077; 87102; 87116; 87186; 87205; 87206; 87426; 88304; 88311; C9803; J7120; J2405

== ENCOUNTER 2020-09-16 09:15 | Outpatient (RCR) | payer MEDICAID, SELFPAY ==
[2020-08-18 00:22] VITALS: BP 179/83; PULSE 77; RESP 18; TEMP 35.7; BMI 35.8
[2020-08-19 13:42] VITALS: BP 189/84; PULSE 73; RESP 16; BMI 35.8
[2020-08-19 14:15] VITALS: BP 142/77
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
[2020-08-26 09:18] VITALS: BP 164/75; PULSE 71; RESP 18; TEMP 36.2; BMI 35.8
--- NOTE | 2020-08-26 12:13 | PCM.WC.PN ---
(1) Ulcer of right foot with fat layer exposed Status: Chronic Code(s): L97.512 - Non-pressure chronic ulcer of other part of right foot with fat layer exposed (2) Delayed wound healing Status: Chronic Code(s): T14.8XXD - Other injury of unspecified body region, subsequent encounter (3) Diabetes type 2, uncontrolled Status: Chronic Qualifiers: Glycemic state: with hyperglycemia Qualified Code(s): E11.65 - Type 2 diabetes mellitus with hyperglycemia Code(s): E11.65 - Type 2 diabetes mellitus with hyperglycemia (4) Peripheral neuropathy Status: Chronic Qualifiers: Code(s): G62.9 - Polyneuropathy, unspecified (5) Venous insufficiency (chronic) (peripheral) Status: Chronic Code(s): I87.2 - Venous insufficiency (chronic) (peripheral) (6) Deformity of metatarsal Status: Chronic Qualifiers: Laterality: right Qualified Code(s): M21.961 - Unspecified acquired deformity of right lower leg Code(s): M21.969 - Unspecified acquired deformity of unspecified lower leg Type of Wound Date of Service: 08/26/20 Chief Complaint: right foot ulcers History of Wound: He is following up for chronic right foot ulcers. He reports he went to his vascular referral with Dr. Tipton and plans to follow-up in 3 months to see if intervention is needed. Mild discomfort to his foot this past week. He denies odor or redness. Progress of Wound: Stable right foot ulcer - Physical Exam Vital Signs Temp Pulse Resp BP 97.2 F L 71 18 164/75 H 08/26/20 09:18 08/26/20 09:18 08/26/20 09:18 08/26/20 09:18 General: Alert, Oriented x3, Cooperative, No apparent distress Extremities: No cyanosis, Capillary Refill Less than 3 Seconds, No Calf Tenderness, Diminished Peripheral Pulses, Edema Skin: Ulcer/ Wound - No purulence, erythema, streaking, odor, infection. Increased depth is noted without capsule or bone. No fluctuance or bogginess is noted. The adjacent skin is atrophic Wound Measurements and Assessment WC - Nurse 1 - General Ulcer Measurement Start: 08/19/20 13:41 Freq: Status: Active Protocol: Activity Type Activity Date Activity User E-Sign Co-Sign Detail Recorded Client Recorded Date Recorded By Document 08/26/20 09:18 ROB [id number] 08/26/20 09:30 DL 08/26/20 09:18 Wound Center Nurse 1 [Ulcer Assessment] #3 R Plantar Lat -Current Size (cm) - Length 0.8 -Current Size (cm) - Width 1.2 -Current Size (cm) - Depth 0.3 -Total Square Cm 0.96 -Photo Taken No -Undermining/Tunneling Starts (O' 1 clock) -Undermining/Tunneling Ends (O'clock) 4 -Maximum Distance (cm) 0.2 -Exudate Amt Medium -Wound Margin Thickened -Granulation Amt Medium (34-66%) -Granulation Quality Red -Necrosis Amt Medium (34-66%) -Necrotic Tissue Type Adherent Slough -Structure Exposed N/A -Texture (Kathia-wound Skin Appearance) Callus,Scarring -Moisture (Kathia-wound Skin Appearance Maceration ) -Color (Kathia-wound Skin Appearance) No Abnormality -Temperature (Kathia-wound Skin No Abnormality Appearance) (Pt Warm) -Tenderness on Palpation (Kathia-wound Yes Skin Appearance) -Ulcer Cleansing Wound Cleanser -Foul Odor after Cleansing No -Anesthetic Used 4% Lidocaine Solution WC - Nurse 2 - General Ulcer CM Notes Start: 08/19/20 13:41 Freq: Status: Active Protocol: Activity Type Activity Date Activity User E-Sign Co-Sign Detail Recorded Client Recorded Date Recorded By Document 08/26/20 09:54 SALUD [id number] 08/26/20 10:00 SALUD 08/26/20 09:54 Wound Center Nurse 2 [Procedure/Treatment] -Time 09:55 -Correct Patient Yes -Correct Side, Site, Position Yes -Correct Procedure Yes -Procedure Performed Yes -Type of Procedure Debridement -Clinical Debridement Subcutaneous -Tissue Removed Subcutaneous -Post Debridement (cm) - Length 1 -Post Debridement (cm) - Width 1.2 -Post Debridement (cm) - Depth 0.4 -Total Square (Post) (cm) 1.2 -Area of Debridement (cm) - Length 1 -Area of Debridement (cm) - Width 1.2 -Total Square (Area) (cm) 1.2 -Tunneling No -Undermining/Tunneling No -Circular Undermining No -Wound/Ulcer Outcome Not Healed -Ulcer Cleansing Rinsed/ Irrigated with Saline -Foul Odor after Cleansing No -Bioengineered Tissue No -Bleeding Controlled with Pressure -Offloading Yes -Type of Offloading Surgical Shoe -Debridement - Subq, 1st 20sq cm Yes [See Physician Procedure note for Specifics] Pain Scale: 0-10 Numeric [Pain] -Is Patient Pain Free? Yes - Nurse 3 - General Ulcer D/C NN Start: 08/19/20 13:41 Freq: Status: Active Protocol: Activity Type Activity Date Activity User E-Sign Co-Sign Detail Recorded Client Recorded Date Recorded By Document 08/26/20 10:09 MN [id number] 08/26/20 10:10 MN 08/26/20 10:09 Wound Care Nurse 3 [Wound Dressing] #3 R Plantar Lat -Ulcer Cleansing Rinsed/ Irrigated with Saline -Primary Dressing Applied Aquacel AG 2x2 -Primary Dressing Covered/Secured Dry Gauze, with Secured with Tape -Aquacel AG 2x2 1 - Visit Discharge [Visit Discharge Information] -Discharge Condition Stable -Ambulatory Status Ambulatory -Transportation Private Auto -Medication Reconcilliation completed No & provided to patient/care provider -Clinical Summary of Care Provided Yes Musculoskeletal: No Tenderness to Palpation of Joints or Extremities, Muscle Wasting, - - Prominent metatarsal head dorsiflexion also digits. The ulcer site appears to correlate with fourth metatarsal head Neurological: - - Lack of epicritic sensation light touch is consistent with neuropathy status Psych/Mental Status: Normal Affect, Appropriate Debridement Note Post-Debridement Measurements/Treatment - Nurse 2 - General Ulcer CM Notes Start: 08/19/20 13:41 Freq: Status: Active Protocol: Activity Type Activity Date Activity User E-Sign Co-Sign Detail Recorded Client Recorded Date Recorded By Document 08/19/20 14:04 [id number] 08/19/20 14:12 Document 08/26/20 09:54 [id number] 08/26/20 10:00 08/19/20 08/26/20 14:04 09:54 Wound Center Nurse 2 #3 R Plantar Lat -Time 14:07 09:55 -Correct Patient Yes Yes -Correct Side, Site, Position Yes Yes -Correct Procedure Yes Yes -Procedure Performed Yes Yes -Type of Procedure Debridement Debridement -Clinical Debridement Subcutaneous Subcutaneous -Tissue Removed Subcutaneous Subcutaneous -Post Debridement (cm) - Length 0.9 1 -Post Debridement (cm) - Width 1.2 1.2 -Post Debridement (cm) - Depth 0.6 0.4 -Total Square (Post) (cm) 1.08 1.2 -Area of Debridement (cm) - Length 0.9 1 -Area of Debridement (cm) - Width 1.2 1.2 -Total Square (Area) (cm) 1.08 1.2 -Tunneling No No -Undermining/Tunneling No No -Circular Undermining No No -Wound/Ulcer Outcome Not Healed Not Healed -Ulcer Cleansing Rinsed/ Rinsed/ Irrigated with Irrigated with Saline Saline -Foul Odor after Cleansing No No -Bioengineered Tissue No No -Bleeding Controlled with Pressure Pressure -Offloading Yes Yes -Type of Offloading Total Contact Surgical Shoe Cast (TCC) - Right ($) -Treatment Response Procedure Tolerated Well -Debridement - Subq, 1st 20sq cm Yes Yes Pain Scale: 0-10 Numeric Is Patient Pain Free? Yes Yes - Nurse 3 - General Ulcer D/C NN Start: 08/19/20 13:41 Freq: Status: Active Protocol: Activity Type Activity Date Activity User E-Sign Co-Sign Detail Recorded Client Recorded Date Recorded By Document 08/19/20 14:15 [id number] 08/19/20 14:19 RB Document 08/26/20 10:09 MN [id number] 08/26/20 10:10 MN 08/19/20 08/26/20 14:15 10:09 Wound Care Nurse 3 #3 R Plantar Lat -Ulcer Cleansing Rinsed/ Irrigated with Saline -Primary Dressing Applied Promogran Aquacel AG 2x2 Sheila Matter -Primary Dressing Covered/Secured with Dry Gauze, Secured with Tape -Other Covering primary layer 3 inch TCC -Aquacel AG 2x2 1 -Promogran Sheila Matter 1 Treatment Response Procedure Tolerated Well Vital Signs Blood Pressure (90/60-120/80) 142/77 H Blood Pressure Mean (mm Hg) 98 Source Monitor Position Semi-Fowlers Blood Pressure Location Left Arm Pain Scale: 0-10 Numeric Is Patient Pain Free? Yes - Visit Discharge Discharge Condition Stable Stable Ambulatory Status Ambulatory Ambulatory Transportation Private Auto Private Auto Medication Reconcilliation completed & No No provided to patient/care provider Clinical Summary of Care Provided Yes Yes Wound debrided: sub 4th metatarsal head Laterality: Right Wound Grade/Stage: grade 1 Type of Debridement: Excisional debridement Anesthesia Used: 5% Lidocaine Gel Depth: in the subcutaneous layer Percentage of wound debrided: 100 Instrument Used: #15 blade Tissue Removed: fibrous, devitalized subcutaneous, biofilm, slough Severity: Fat Layer Exposed Amount of bleeding with debridement: Mild Bleeding Controlled with: Pressure Patient tolerated procedure well Assessment/Plan Active Problems (Last Reviewed 08/04/20 @ 18:16 by Nora Jack TRANSMISSION ASSEMBLER, TRANSMISSION ASSEMBLER-C) Venous insufficiency (chronic) (peripheral) (Chronic) Delayed wound healing (Chronic) Ulcer of right foot with fat layer exposed (Chronic) Peripheral neuropathy (Chronic) Diabetes type 2, uncontrolled (Chronic) Assessment: plantar right foot ulcer, grade 1 (lateral). delayed wound healing right plantar DFU. diabetes with neuropathy Plan: I reviewed and discussed his case. Subcutaneous excisional debridement was performed as noted in the clinical panel. He completed a course of advanced wound healing product, epifix. I recommended changing the dressing daily with Dakin's solution wet-to-dry. A prescription for this was provided today. Increased depth and ulcers anteriorization is noted. I recommend taking a culture even though there are not any overt systemic or local signs of infection. Colonization or subclinical infection may be present which may be contributing to delayed healing. He tolerated this well. To reduce overall activity. I reviewed his noninvasive vascular studies which do not demonstrate gross abnormalities. There is potential small vessel abnormalities. Although he is making progress, it is slow and I recommend a vascular referral for arterial and venous evaluation at this time. A referral to Dr. Tipton was initiated previously. His venous Doppler exams also reviewed reviewed including reflux evaluation he does have venous insufficiency. He was advised to wear compression dressing. He saw Dr. Tipton, vascular surgeon on 08-05-2020 and his note was reviewed. He has fairly normal arterial blood flow and it is believed that he should be able to heal his wound with his current perfusion. For right leg venous issues he was advised to continue compression and there is a plan for right GSV a Varithena and possible right ASV Varithena and Varithena ablation of the residual branches. The same plan applies to the left lower extremity venous insufficiency condition. He will follow-up in about 3 months. To elevate limbs at rest. To perform manual muscular contraction hourly while awake. To avoid salt in the diet. Referral will be performed to the acid strength inspector via nutritional services will be pursued if nonhealing continues. He is advised to continue to work on maintaining an appropriate diet and glucose management to optimize healing. I recommended nutritional supplementation as well. I also offered him surgical offloading of the prominent fourth metatarsal head metatarsal head resection surgically. This would be a planned outpatient procedure under MAC and local anesthetic sedation. He is amendable to proceed for this. The indication, benefits, risk, complications, anticipated healing time and management were discussed. He understands history and physical including clearance for the surgery will be required by his primary care provider. drug abuse program coordinator, nurse Johnson, will contact him to help get this scheduled. This is considered a curative limb salvage surgery to return to the wound healing center in 1 week or call sooner if he has any return of infection signs.
--- NOTE | 2020-08-26 12:15 | RAD_ITS ---
STUDY: X-RAY - RIGHT FOOT CLINICAL: Male, 60 years old. diabetic, chronic ulcer on plantar surface of the right foot TECHNIQUE: 3 view(s) of the foot. COMPARISON: 04/18/2020 FINDINGS: Normal talus, calcaneus, and tarsal bones. Small plantar and posterior calcaneal enthesophyte Normal visualized subtalar, talonavicular, calcaneocuboid, tarsal and tarsometatarsal articulations. Normal metatarsi. Normal metatarsophalangeal joint of the great toe. Normal tibial and fibular sesamoid bones. Normal interphalangeal joint of the great toe. Normal phalanges of the great toe. Normal second through fifth metatarsophalangeal joints. Normal interphalangeal joints and phalanges of the lesser toes. The soft tissue structures are unremarkable. RAD/Foot min 3 Views IMPRESSION: Normal x-ray examination of the foot. No radiographic evidence of osteomyelitis. Electronically Signed: Earl Perez MD at 8:51 EST Tel , Service support ,
[2020-08-26 12:49] LABS: Erythrocyte Sedimentation Rate 9 mm/hr (0-20)
[2020-08-26 12:51] LABS: Absolute Lymphocyte Count 3.13 X10^3/uL (0.83-4.51); Absolute Neutrophil Count 5.4 X10^3/uL (2.0-7.7); Basophil# 0.08 X10^3/uL; Basophil% 0.8 % (0-1); Eosinophil# 0.34 X10^3/uL; Eosinophils% 3.5 % (0-5); Hematocrit 42.8 % (40-54); Hemoglobin 13.9 g/dL (13.0-16.5); Lymphocyte # 3.13 X10^3/ul (4.0); Lymphocyte % 31.9 % (19-41); Mean Corp Hgb Conc 32.5 g/dL (32-36); Mean Corpuscular Volume 92.2 fL (80-94); Mean Platelet Vol. 10.8 fl (6.2-12.0); Monocyte# 0.69 X10^3/uL; NRBC Flagged by Analyzer 0 % (0-5); Neutrophil % 55.2 % (47-70); Platelet Count 287 K/mm3 (150-450); RBC Distribution Width CV 13.8 % (11.6-14.6); RBC Distribution Width SD 46.6 fl (35.1-43.9); Red Blood Count 4.64 M/mm3 (4.6-6.2); White Blood Count 9.8 K/mm3 (4.4-11.0)
[2020-08-26 13:25] LABS: ALB/GLOB Ratio 0.9 RATIO (0.9-2.4); AST(SGOT) 11 U/L (15-37); Alanine Aminotransfer ALT/SGPT 27 U/L (16-61); Albumin, Serum 3.7 g/dL (3.2-5.0); Alkaline Phosphatase 81 U/L (45-117); Anion Gap 4 (5-15); BUN 17 mg/dL (7-18); BUN/Creat Ratio 22.8 RATIO (10-20); Calcium,Total 9.1 mg/dL (8.5-10.1); Chloride 107 mmol/L (98-107); Creatinine, Serum 0.75 mg/dL (0.70-1.30); EST Glomerular Filtration Rate 113 mL/min (>60); Est Glom Filt Rate - Afr Amer 137 mL/min (>60); Estimated Creatinine Clearance 125.19 ml/min; Globulin 4.3 g/dL (2.2-4.2); Glucose 107 mg/dL (74-106); Potassium 4.4 mmol/L (3.5-5.1); Sodium Level 139 mmol/L (136-145)
[2020-08-26 14:50] LABS: M R Staph aureus DNA By PCR POSITIVE (Negative); Probe Check PASS; Staph aureus DNA By PCR POSITIVE (Negative)
[2020-09-02 09:13] VITALS: BP 163/77; PULSE 67; RESP 18; TEMP 35.9; BMI 35.8
--- NOTE | 2020-09-02 11:27 | PN.PCM_ITS ---
(1) MRSA (methicillin resistant staph aureus) culture positive Status: Acute Code(s): Z22.322 - Carrier or suspected carrier of Methicillin resistant Staphylococcus aureus (2) Cellulitis of right foot Status: Acute Code(s): L03.115 - Cellulitis of right lower limb (3) Ulcer of right foot with fat layer exposed Status: Chronic Code(s): L97.512 - Non-pressure chronic ulcer of other part of right foot with fat layer exposed (4) Delayed wound healing Status: Chronic Code(s): T14.8XXD - Other injury of unspecified body region, subsequent encounter (5) Diabetes type 2, uncontrolled Status: Chronic Qualifiers: Glycemic state: with hyperglycemia Qualified Code(s): E11.65 - Type 2 diabetes mellitus with hyperglycemia Code(s): E11.65 - Type 2 diabetes mellitus with hyperglycemia (6) Peripheral neuropathy Status: Chronic Qualifiers: Code(s): G62.9 - Polyneuropathy, unspecified (7) Venous insufficiency (chronic) (peripheral) Status: Chronic Code(s): I87.2 - Venous insufficiency (chronic) (peripheral) (8) Deformity of metatarsal Status: Chronic Qualifiers: Laterality: right Qualified Code(s): M21.961 - Unspecified acquired deformity of right lower leg Code(s): M21.969 - Unspecified acquired deformity of unspecified lower leg Type of Wound Date of Service: 09/02/20 Chief Complaint: right foot ulcers History of Wound: He is following up for chronic right foot ulcers. He reports he went to his vascular referral with Dr. Tipton and plans to follow-up in 3 months to see if intervention is needed. Mild discomfort to his foot this past week. He denies odor or redness. He has been using antimicrobial wound ca re products as advised and he continues to take antibiotics also. He has MRSA. Progress of Wound: Stable right foot ulcer with decreased inflammation - Physical Exam Vital Signs Temp Pulse Resp BP 96.7 F L 67 18 163/77 H 09/02/20 09:13 09/02/20 09:13 09/02/20 09:13 09/02/20 09:13 General: Alert, Oriented x3, Cooperative, No apparent distress Extremities: No cyanosis, Capillary Refill Less than 3 Seconds, No Calf Tenderness, Diminished Peripheral Pulses, Edema Skin: Ulcer/ Wound - No purulence, erythema, streaking, odor, infection. The ulcer depth is increased centrally. There is no necrosis or maceration. The adjacent skin is hairless and atrophic. Wound Measurements and Assessment - Nurse 1 - General Ulcer Measurement Start: 08/19/20 13:41 Freq: Status: Active Protocol: Activity Type Activity Date Activity User E-Sign Co-Sign Detail Recorded Client Recorded Date Recorded By Document 09/02/20 09:13 ROB [id number] 09/02/20 09:19 DL 09/02/20 09:13 Wound Center Nurse 1 [Ulcer Assessment] #3 R Plantar Lat -Current Size (cm) - Length 0.9 -Current Size (cm) - Width 1 -Current Size (cm) - Depth 0.5 -Total Square Cm 0.9 -Photo Taken No -Exudate Amt Small -Exudate Type Serosanguineous -Wound Margin Distinct, Outline Attached -Granulation Amt Large (67-100%) -Granulation Quality [place] -Necrosis Amt Small (1-33%) -Necrotic Tissue Type Adherent Slough -Structure Exposed N/A -Texture (Kathia-wound Skin Appearance) Callus,Scarring -Moisture (Kathia-wound Skin Appearance Dry/Scaly ) -Color (Kathia-wound Skin Appearance) No Abnormality -Temperature (Kathia-wound Skin No Abnormality Appearance) (Pt Warm) -Tenderness on Palpation (Kathia-wound No Skin Appearance) -Ulcer Cleansing Wound Cleanser -Foul Odor after Cleansing No -Anesthetic Used 4% Lidocaine Solution - Nurse 2 - General Ulcer CM Notes Start: 08/19/20 13:41 Freq: Status: Active Protocol: Activity Type Activity Date Activity User E-Sign Co-Sign Detail Recorded Client Recorded Date Recorded By Document 09/02/20 09:27 SALUD [id number] 09/02/20 09:31 JF 09/02/20 09:27 Wound Center Nurse 2 [Procedure/Treatment] -Time 09:28 -Correct Patient Yes -Correct Side, Site, Position Yes -Correct Procedure Yes -Procedure Performed Yes -Type of Procedure Debridement -Clinical Debridement Subcutaneous -Tissue Removed Subcutaneous -Post Debridement (cm) - Length 1 -Post Debridement (cm) - Width 1.7 -Post Debridement (cm) - Depth 0.8 -Total Square (Post) (cm) 1.7 -Area of Debridement (cm) - Length 1 -Area of Debridement (cm) - Width 1.7 -Total Square (Area) (cm) 1.7 -Tunneling No -Undermining/Tunneling No -Circular Undermining No -Wound/Ulcer Outcome Not Healed -Ulcer Cleansing Rinsed/ Irrigated with Saline -Foul Odor after Cleansing No -Bioengineered Tissue No -Bleeding Controlled with Pressure -Offloading Yes -Type of Offloading Surgical Shoe -Debridement - Subq, 1st 20sq cm Yes [See Physician Procedure note for Specifics] Pain Scale: 0-10 Numeric [Pain] -Is Patient Pain Free? Yes - Nurse 3 - General Ulcer D/C NN Start: 08/19/20 13:41 Freq: Status: Active Protocol: Activity Type Activity Date Activity User E-Sign Co-Sign Detail Recorded Client Recorded Date Recorded By Document 09/02/20 09:38 ROB [id number] 09/02/20 09:42 DL 09/02/20 09:38 Wound Care Nurse 3 [Wound Dressing] #3 R Plantar Lat -Ulcer Cleansing Rinsed/ Irrigated with Saline -Foul Odor after Cleansing No -Primary Dressing Covered/Secured Dry Gauze, with Secured with Tape [Post Procedure Tolerated] -Treatment Response Procedure Tolerated Well Pain Scale: 0-10 Numeric [Pain] -Is Patient Pain Free? Yes - Visit Discharge [Visit Discharge Information] -Discharge Condition Stable -Ambulatory Status Ambulatory -Transportation Private Auto -Notes: resume Dakins at home. Musculoskeletal: No Tenderness to Palpation of Joints or Extremities, Muscle Wasting, - - Dorsal contraction of lesser toes with prominent metatarsal heads. The prominent fourth metatarsal head aligns with the ulcer that is demonstrating delayed healing Neurological: - Psych/Mental Status: Normal Affect, Appropriate Debridement Note Post-Debridement Measurements/Treatment - Nurse 2 - General Ulcer CM Notes Start: 08/19/20 13:41 Freq: Status: Active Protocol: Activity Type Activity Date Activity User E-Sign Co-Sign Detail Recorded Client Recorded Date Recorded By Document 08/19/20 14:04 SALUD [id number] 08/19/20 14:12 Document 08/26/20 09:54 SALUD [id number] 08/26/20 10:00 JF Document 09/02/20 09:27 SALUD [id number] 09/02/20 09:31 JF 08/19/20 08/26/20 09/02/20 14:04 09:54 09:27 Wound Center Nurse 2 #3 R Plantar Lat -Time 14:07 09:55 09:28 -Correct Patient Yes Yes Yes -Correct Side, Site, Position Yes Yes Yes -Correct Procedure Yes Yes Yes -Procedure Performed Yes Yes Yes -Type of Procedure Debridement Debridement Debridement -Clinical Debridement Subcutaneous Subcutaneous Subcutaneous -Tissue Removed Subcutaneous Subcutaneous Subcutaneous -Post Debridement (cm) - Length 0.9 1 1 -Post Debridement (cm) - Width 1.2 1.2 1.7 -Post Debridement (cm) - Depth 0.6 0.4 0.8 -Total Square (Post) (cm) 1.08 1.2 1.7 -Area of Debridement (cm) - Length 0.9 1 1 -Area of Debridement (cm) - Width 1.2 1.2 1.7 -Total Square (Area) (cm) 1.08 1.2 1.7 -Tunneling No No No -Undermining/Tunneling No No No -Circular Undermining No No No -Wound/Ulcer Outcome Not Healed Not Healed Not Healed -Ulcer Cleansing Rinsed/ Rinsed/ Rinsed/ Irrigated with Irrigated with Irrigated with Saline Saline Saline -Foul Odor after Cleansing No No No -Bioengineered Tissue No No No -Bleeding Controlled with Pressure Pressure Pressure -Offloading Yes Yes Yes -Type of Offloading Total Contact Surgical Shoe Surgical Shoe Cast (TCC) - Right ($) -Treatment Response Procedure Tolerated Well -Debridement - Subq, 1st 20sq cm Yes Yes Yes Pain Scale: 0-10 Numeric Is Patient Pain Free? Yes Yes Yes WC - Nurse 3 - General Ulcer D/C NN Start: 08/19/20 13:41 Freq: Status: Active Protocol: Activity Type Activity Date Activity User E-Sign Co-Sign Detail Recorded Client Recorded Date Recorded By Document 08/19/20 14:15 RB [id number] 08/19/20 14:19 RB Document 08/26/20 10:09 MT [id number] 08/26/20 10:10 MT Document 09/02/20 09:38 DL [id number] 09/02/20 09:42 DL 08/19/20 08/26/20 09/02/20 14:15 10:09 09:38 Wound Care Nurse 3 #3 R Plantar Lat -Ulcer Cleansing Rinsed/ Rinsed/ Irrigated with Irrigated with Saline Saline -Foul Odor after Cleansing No -Primary Dressing Applied Promogran Aquacel AG 2x2 Sheila Matter -Primary Dressing Covered/Secured with Dry Gauze, Dry Gauze, Secured with Secured with Tape Tape -Other Covering primary layer 3 inch TCC -Aquacel AG 2x2 1 -Promogran Sheila Matter 1 Treatment Response Procedure Procedure Tolerated Well Tolerated Well Vital Signs Blood Pressure (90/60-120/80) 142/77 H Blood Pressure Mean (mm Hg) 98 Source Monitor Position Semi-Fowlers Blood Pressure Location Left Arm Pain Scale: 0-10 Numeric Is Patient Pain Free? Yes Yes WC - Visit Discharge Discharge Condition Stable Stable Stable Ambulatory Status Ambulatory Ambulatory Ambulatory Transportation Private Auto Private Auto Private Auto Medication Reconcilliation completed & No No provided to patient/care provider Clinical Summary of Care Provided Yes Yes Notes: resume Dakins at home. Wound debrided: sub 4th metatarsal head Laterality: Right Wound Grade/Stage: grade 1 Type of Debridement: Excisional debridement Anesthesia Used: 5% Lidocaine Gel Depth: in the subcutaneous layer Percentage of wound debrided: 100 Instrument Used: #15 blade Tissue Removed: fibrous, devitalized subcutaneous, biofilm, slough Severity: Fat Layer Exposed Amount of bleeding with debridement: Mild Bleeding Controlled with: Pressure Patient tolerated procedure well Assessment/Plan Clinical Impression(s) from Imaging Studies Foot X-Ray 08/26/20 12:15 IMPRESSION: Normal x-ray examination of the foot. No radiographic evidence of osteomyelitis. Electronically Signed: Earl Perez MD at 8:51 EST Tel , Service support , Active Problems (Last Reviewed 08/04/20 @ 18:16 by Nora Jack LEAN PROCESS DEPLOYMENT CONSULTANT, LEAN PROCESS DEPLOYMENT CONSULTANT-C) Cellulitis of right foot (Acute) Venous insufficiency (chronic) (peripheral) (Chronic) Deformity of metatarsal (Chronic) Delayed wound healing (Chronic) MRSA (methicillin resistant staph aureus) culture positive (Acute) Ulcer of right foot with fat layer exposed (Chronic) Peripheral neuropathy (Chronic) Diabetes type 2, uncontrolled (Chronic) Assessment: plantar right foot ulcer, grade 1 (lateral). delayed wound healing right plantar DFU. diabetes with neuropathy. Cellulitis improving; MRSA noted Plan: I reviewed and discussed his case. Subcutaneous excisional debridement was performed as noted in the clinical panel. He completed a course of advanced wound healing product, epifix. I recommended changing the dressing daily with Dakin's solution wet-to-dry. A prescription for this was provided previously. Increased depth and ulcer deteriorization is noted. Colonization or subclinical infection is being treated at this time due to worsening status including increased depth and this is also contributing to delayed healing. He tolerated this well. To reduce overall activity. He is growing strep and MRSA. To complete course of Augmentin and Bactrim. Refills will be sent to get him through until next week. I reviewed his noninvasive vascular studies which do not demonstrate gross abnormalities. There is potential small vessel abnormalities. Although he is making progress, it is slow and I recommend a vascular referral for arterial and venous evaluation at this time. A referral to Dr. Tipton was initiated previously. His venous Doppler exams also reviewed reviewed including reflux evaluation he does have venous insufficiency. He was advised to wear compression dressing. He saw Dr. Tipton, vascular surgeon on 08-05-2020 and his note was reviewed. He has fairly normal arterial blood flow and it is believed that he should be able to heal his wound with his current perfusion. For right leg venous issues he was advised to continue compression and there is a plan for right GSV a Varithena and possible right ASV Varithena and Varithena ablation of the residual branches. The same plan applies to the left lower extremity venous insufficiency condition. He will follow-up in about 3 months. To elevate limbs at rest. To perform manual muscular contraction hourly while awake. To avoid salt in the diet. Referral will be performed to the k 9 handler/ deputy via nutritional services will be pursued if nonhealing continues. He is advised to continue to work on maintaining an appropriate diet and glucose management to optimize healing. I recommended nutritional supplementation as well. I also offered him surgical offloading of the prominent fourth metatarsal head metatarsal head resection surgically. This would be a planned outpatient procedure under MAC and local anesthetic sedation. He is amendable to proceed for this. The indication, benefits, risk, complications, anticipated healing time and management were discussed. His preoperative history and physical clearance were reviewed by Nora Jack CNP. His diagnostic data was reviewed. This procedure will be performed with MAC and local anesthesia as an outpatient procedure. He understands risks and complications include but are not limited to the following: Pain, swelling, scarring, transfer lesion, delayed or nonhealing, continued infection, need for revisional surgery, blood clot, allergic reaction, over or under correction, loss of limb, function, life. No guarantees were made. The informed surgical consents were signed today and I answered his questions. This is considered a curative limb salvage surgery to return to the wound healing center in 1 week or call sooner if he has any return of infection signs.
[2020-09-09 09:08] VITALS: RESP 18; TEMP 35.6; BMI 35.8
[2020-09-09 09:19] VITALS: BP 166/87; PULSE 66; BMI 35.8
--- NOTE | 2020-09-09 09:58 | PN.PCM_ITS ---
(1) MRSA (methicillin resistant staph aureus) culture positive Status: Acute Code(s): Z22.322 - Carrier or suspected carrier of Methicillin resistant Staphylococcus aureus (2) Cellulitis of right foot Status: Acute Code(s): L03.115 - Cellulitis of right lower limb (3) Ulcer of right foot with fat layer exposed Status: Chronic Code(s): L97.512 - Non-pressure chronic ulcer of other part of right foot with fat layer exposed (4) Delayed wound healing Status: Chronic Code(s): T14.8XXD - Other injury of unspecified body region, subsequent encounter (5) Diabetes type 2, uncontrolled Status: Chronic Qualifiers: Glycemic state: with hyperglycemia Qualified Code(s): E11.65 - Type 2 diabetes mellitus with hyperglycemia Code(s): E11.65 - Type 2 diabetes mellitus with hyperglycemia (6) Peripheral neuropathy Status: Chronic Qualifiers: Code(s): G62.9 - Polyneuropathy, unspecified (7) Venous insufficiency (chronic) (peripheral) Status: Chronic Code(s): I87.2 - Venous insufficiency (chronic) (peripheral) (8) Deformity of metatarsal Status: Chronic Qualifiers: Laterality: right Qualified Code(s): M21.961 - Unspecified acquired deformity of right lower leg Code(s): M21.969 - Unspecified acquired deformity of unspecified lower leg Type of Wound Date of Service: 09/09/20 Chief Complaint: right foot ulcers History of Wound: He is following up for chronic right foot ulcers. He reports he went to his vascular referral with Dr. Tipton and plans to follow-up in 3 months to see if intervention is needed. He has resolved discomfort to his foot this past week. He denies odor or redness. He has been using dakins wet to dry as advised and he continues to take antibiotics also. He has MRSA. He is scheduled to have metatarsal head resection next Monday in the operating room. Progress of Wound: Stable - Physical Exam Vital Signs Temp Pulse Resp BP 96.1 F L 66 18 166/87 H 09/09/20 09:08 09/09/20 09:19 09/09/20 09:08 09/09/20 09:19 General: Alert, Oriented x3, Cooperative, No apparent distress HEENT: Atraumatic Extremities: No cyanosis, Capillary Refill Less than 3 Seconds, No Calf Tenderness, Diminished Peripheral Pulses, Edema Skin: Ulcer/ Wound - No purulence, erythema, streaking, odor, infection. There is continued depth to the central part of the ulcer but there is no direct probing to bone. No bogginess or fluctuance on palpation., - - Periulcer inflammation is decreasing Wound Measurements and Assessment - Nurse 1 - General Ulcer Measurement Start: 08/19/20 13:41 Freq: Status: Active Protocol: Activity Type Activity Date Activity User E-Sign Co-Sign Detail Recorded Client Recorded Date Recorded By Document 09/09/20 09:08 DL [id number] 09/09/20 09:13 DL 09/09/20 09:08 Wound Center Nurse 1 [Ulcer Assessment] #3 R Plantar Lat -Current Size (cm) - Length 1.2 -Current Size (cm) - Width 1.6 -Current Size (cm) - Depth 0.5 -Total Square Cm 1.92 -Photo Taken No -Exudate Amt Small -Exudate Type Serosanguineous -Wound Margin Thickened -Granulation Amt Large (67-100%) -Granulation Quality [place] -Necrosis Amt Small (1-33%) -Necrotic Tissue Type Adherent Slough -Structure Exposed N/A -Texture (Kathia-wound Skin Appearance) Callus,Scarring -Moisture (Kathia-wound Skin Appearance Dry/Scaly ) -Color (Kathia-wound Skin Appearance) Hemosiderin Staining -Temperature (Kathia-wound Skin No Abnormality Appearance) (Pt Warm) -Tenderness on Palpation (Kathia-wound No Skin Appearance) -Ulcer Cleansing Rinsed/ Irrigated with Saline -Foul Odor after Cleansing No -Anesthetic Used 4% Lidocaine Solution - Nurse 2 - General Ulcer CM Notes Start: 08/19/20 13:41 Freq: Status: Active Protocol: Activity Type Activity Date Activity User E-Sign Co-Sign Detail Recorded Client Recorded Date Recorded By Document 09/09/20 09:35 SALUD [id number] 09/09/20 09:39 SALUD 09/09/20 09:35 Wound Center Nurse 2 [Procedure/Treatment] -Time 09:37 -Correct Patient Yes -Correct Side, Site, Position Yes -Correct Procedure Yes -Procedure Performed Yes -Type of Procedure Debridement -Clinical Debridement Subcutaneous -Tissue Removed Subcutaneous -Post Debridement (cm) - Length 1.2 -Post Debridement (cm) - Width 1.7 -Post Debridement (cm) - Depth 0.4 -Total Square (Post) (cm) 2.04 -Area of Debridement (cm) - Length 1.2 -Area of Debridement (cm) - Width 1.7 -Total Square (Area) (cm) 2.04 -Tunneling No -Undermining/Tunneling No -Circular Undermining No -Wound/Ulcer Outcome Not Healed -Ulcer Cleansing Rinsed/ Irrigated with Saline -Foul Odor after Cleansing No -Bioengineered Tissue No -Bleeding Controlled with Pressure -Offloading Yes -Type of Offloading Surgical Shoe -Treatment Response Procedure Tolerated Well -Debridement - Subq, 1st 20sq cm Yes [See Physician Procedure note for Specifics] Pain Scale: 0-10 Numeric [Pain] -Is Patient Pain Free? Yes - Nurse 3 - General Ulcer D/C NN Start: 08/19/20 13:41 Freq: Status: Active Protocol: Activity Type Activity Date Activity User E-Sign Co-Sign Detail Recorded Client Recorded Date Recorded By Document 09/09/20 09:42 MAXX [id number] 09/09/20 09:47 MAXX 09/09/20 09:42 Wound Care Nurse 3 [Wound Dressing] #3 R Plantar Lat -Ulcer Cleansing Rinsed/ Irrigated with Saline -Foul Odor after Cleansing No -Other Dressing moist to dry dressing -Primary Dressing Covered/Secured Dry Gauze, with Secured with Tape Pain Scale: 0-10 Numeric [Pain] -Is Patient Pain Free? Yes - Visit Discharge [Visit Discharge Information] -Discharge Condition Stable -Ambulatory Status Ambulatory -Transportation Private Auto Musculoskeletal: No Tenderness to Palpation of Joints or Extremities, Muscle Wasting, - - Prominent fourth metatarsal head and dorsal contraction of the adjacent toes Neurological: - - Lack of normal epicritic sensation light touch is consistent with neuropathy status Psych/Mental Status: Normal Affect, Appropriate Debridement Note Post-Debridement Measurements/Treatment WC - Nurse 2 - General Ulcer CM Notes Start: 08/19/20 13:41 Freq: Status: Active Protocol: Activity Type Activity Date Activity User E-Sign Co-Sign Detail Recorded Client Recorded Date Recorded By Document 08/19/20 14:04 SALUD [id number] 08/19/20 14:12 Document 08/26/20 09:54 SALUD [id number] 08/26/20 10:00 Document 09/02/20 09:27 [id number] 09/02/20 09:31 Document 09/09/20 09:35 [id number] 09/09/20 09:39 08/19/20 08/26/20 09/02/20 14:04 09:54 09:27 Wound Center Nurse 2 #3 R Plantar Lat -Time 14:07 09:55 09:28 -Correct Patient Yes Yes Yes -Correct Side, Site, Position Yes Yes Yes -Correct Procedure Yes Yes Yes -Procedure Performed Yes Yes Yes -Type of Procedure Debridement Debridement Debridement -Clinical Debridement Subcutaneous Subcutaneous Subcutaneous -Tissue Removed Subcutaneous Subcutaneous Subcutaneous -Post Debridement (cm) - Length 0.9 1 1 -Post Debridement (cm) - Width 1.2 1.2 1.7 -Post Debridement (cm) - Depth 0.6 0.4 0.8 -Total Square (Post) (cm) 1.08 1.2 1.7 -Area of Debridement (cm) - Length 0.9 1 1 -Area of Debridement (cm) - Width 1.2 1.2 1.7 -Total Square (Area) (cm) 1.08 1.2 1.7 -Tunneling No No No -Undermining/Tunneling No No No -Circular Undermining No No No -Wound/Ulcer Outcome Not Healed Not Healed Not Healed -Ulcer Cleansing Rinsed/ Rinsed/ Rinsed/ Irrigated with Irrigated with Irrigated with Saline Saline Saline -Foul Odor after Cleansing No No No -Bioengineered Tissue No No No -Bleeding Controlled with Pressure Pressure Pressure -Offloading Yes Yes Yes -Type of Offloading Total Contact Surgical Shoe Surgical Shoe Cast (TCC) - Right ($) -Treatment Response Procedure Tolerated Well -Debridement - Subq, 1st 20sq cm Yes Yes Yes Pain Scale: 0-10 Numeric Is Patient Pain Free? Yes Yes Yes 09/09/20 09:35 Wound Center Nurse 2 #3 R Plantar Lat -Time 09:37 -Correct Patient Yes -Correct Side, Site, Position Yes -Correct Procedure Yes -Procedure Performed Yes -Type of Procedure Debridement -Clinical Debridement Subcutaneous -Tissue Removed Subcutaneous -Post Debridement (cm) - Length 1.2 -Post Debridement (cm) - Width 1.7 -Post Debridement (cm) - Depth 0.4 -Total Square (Post) (cm) 2.04 -Area of Debridement (cm) - Length 1.2 -Area of Debridement (cm) - Width 1.7 -Total Square (Area) (cm) 2.04 -Tunneling No -Undermining/Tunneling No -Circular Undermining No -Wound/Ulcer Outcome Not Healed -Ulcer Cleansing Rinsed/ Irrigated with Saline -Foul Odor after Cleansing No -Bioengineered Tissue No -Bleeding Controlled with Pressure -Offloading Yes -Type of Offloading Surgical Shoe -Treatment Response Procedure Tolerated Well -Debridement - Subq, 1st 20sq cm Yes Pain Scale: 0-10 Numeric Is Patient Pain Free? Yes WC - Nurse 3 - General Ulcer D/C NN Start: 08/19/20 13:41 Freq: Status: Active Protocol: Activity Type Activity Date Activity User E-Sign Co-Sign Detail Recorded Client Recorded Date Recorded By Document 08/19/20 14:15 RB [id number] 08/19/20 14:19 RB Document 08/26/20 10:09 MT [id number] 08/26/20 10:10 MT Document 09/02/20 09:38 DL [id number] 09/02/20 09:42 DL Document 09/09/20 09:42 KR [id number] 09/09/20 09:47 KR 08/19/20 08/26/20 09/02/20 14:15 10:09 09:38 Wound Care Nurse 3 #3 R Plantar Lat -Ulcer Cleansing Rinsed/ Rinsed/ Irrigated with Irrigated with Saline Saline -Foul Odor after Cleansing No -Primary Dressing Applied Promogran Aquacel AG 2x2 Sheila Matter -Other Dressing -Primary Dressing Covered/Secured with Dry Gauze, Dry Gauze, Secured with Secured with Tape Tape -Other Covering primary layer 3 inch TCC -Aquacel AG 2x2 1 -Promogran Sheila Matter 1 Treatment Response Procedure Procedure Tolerated Well Tolerated Well Vital Signs Blood Pressure (90/60-120/80) 142/77 H Blood Pressure Mean (mm Hg) 98 Source Monitor Position Semi-Fowlers Blood Pressure Location Left Arm Pain Scale: 0-10 Numeric Is Patient Pain Free? Yes Yes WC - Visit Discharge Discharge Condition Stable Stable Stable Ambulatory Status Ambulatory Ambulatory Ambulatory Transportation Private Auto Private Auto Private Auto Medication Reconcilliation completed & No No provided to patient/care provider Clinical Summary of Care Provided Yes Yes Notes: resume Dakins at home. 09/09/20 09:42 Wound Care Nurse 3 #3 R Plantar Lat -Ulcer Cleansing Rinsed/ Irrigated with Saline -Foul Odor after Cleansing No -Primary Dressing Applied -Other Dressing moist to dry dressing -Primary Dressing Covered/Secured with Dry Gauze, Secured with Tape -Other Covering -Aquacel AG 2x2 -Promogran Sheila Matter Treatment Response Vital Signs Blood Pressure (90/60-120/80) Blood Pressure Mean (mm Hg) Source Position Blood Pressure Location Pain Scale: 0-10 Numeric Is Patient Pain Free? Yes WC - Visit Discharge Discharge Condition Stable Ambulatory Status Ambulatory Transportation Private Auto Medication Reconcilliation completed & provided to patient/care provider Clinical Summary of Care Provided Notes: Wound debrided: sub 4th metatarsal head Laterality: Right Wound Grade/Stage: grade 1 Type of Debridement: Excisional debridement Anesthesia Used: 5% Lidocaine Gel Depth: in the subcutaneous layer Percentage of wound debrided: 100 Instrument Used: #15 blade Tissue Removed: fibrous, devitalized subcutaneous, biofilm, slough Severity: Fat Layer Exposed Amount of bleeding with debridement: Mild Bleeding Controlled with: Pressure Patient tolerated procedure well Assessment/Plan Clinical Impression(s) from Imaging Studies Foot X-Ray 08/26/20 12:15 IMPRESSION: Normal x-ray examination of the foot. No radiographic evidence of osteomyelitis. Electronically Signed: Earl Perez MD at 8:51 EST Tel , Service support , Active Problems (Last Reviewed 08/04/20 @ 18:16 by Nora Jack CONCRETE PIPE MACHINE OPERATOR, CONCRETE PIPE MACHINE OPERATOR-C) Cellulitis of right foot (Acute) Venous insufficiency (chronic) (peripheral) (Chronic) Deformity of metatarsal (Chronic) Delayed wound healing (Chronic) MRSA (methicillin resistant staph aureus) culture positive (Acute) Ulcer of right foot with fat layer exposed (Chronic) Peripheral neuropathy (Chronic) Diabetes type 2, uncontrolled (Chronic) Assessment: plantar right foot ulcer, grade 1 (lateral). Metatarsal deformity and plantar flexion, fourth right foot. delayed wound healing right plantar DFU. diabetes with neuropathy. Cellulitis improving; MRSA noted Plan: I reviewed and discussed his case. Subcutaneous excisional debridement was performed as noted in the clinical panel. He completed a course of advanced wound healing product, epifix. I recommended changing the dressing daily with Dakin's solution wet-to-dry. A prescription for this was provided previously. Increased depth and ulcer deteriorization was noted and the infection information is improving. Colonization or subclinical infection is being treated at this time due to worsening status including increased depth and this is also contributing to delayed healing. He tolerated this well. To reduce overall activity. He is growing strep and MRSA. To complete course of Augmentin and Bactrim. Refills were sent to get him through until his surgery date of next Monday. I reviewed his noninvasive vascular studies which do not demonstrate gross abnormalities. There is potential small vessel abnormalities. Although he is making progress, it is slow and I recommend a vascular referral for arterial and venous evaluation at this time. A referral to Dr. Tipton was initiated previously. His venous Doppler exams also reviewed reviewed including reflux evaluation he does have venous insufficiency. He was advised to wear compression dressing. He saw Dr. Tipton, vascular surgeon on 08-05-2020 and his note was reviewed. He has fairly normal arterial blood flow and it is believed that he should be able to heal his wound with his current perfusion. For right leg venous issues he was advised to continue compression and there is a plan for right GSV a Varithena and possible right ASV Varithena and Varithena ablation of the residual branches. The same plan applies to the left lower extremity venous insufficiency condition. He will follow-up in about 3 months. To elevate limbs at rest. To perform manual muscular contraction hourly while awake. To avoid salt in the diet. Referral will be performed to the doctor of naturopathic medicine via nutritional services will be pursued if nonhealing continues. He is advised to continue to work on maintaining an appropriate diet and glucose management to optimize healing. I recommended nutritional supplementation as well. I also offered him surgical offloading of the prominent fourth metatarsal head metatarsal head resection surgically. This would be a planned outpatient procedure under MAC and local anesthetic sedation. He is amendable to proceed for this. The indication, benefits, risk, complications, anticipated healing time and management were discussed. His preoperative history and physical clearance were reviewed by Nora Jack CNP. His diagnostic data was reviewed. This procedure will be performed with MAC and local anesthesia as an outpatient procedure. He understands risks and complications include but are not limited to the following: Pain, swelling, scarring, transfer lesion, delayed or nonhealing, continued infection, need for revisional surgery, blood clot, allergic reaction, over or under correction, loss of limb, function, life. No guarantees were made. The informed surgical consents were signed today and I answered his questions. The purpose of this procedure is to reduce pressure and also to alleviate and test for an infectious nidus. This is considered a curative limb salvage surgery to return to the wound healing center 1 day postoperative which is in 1 week or call sooner if he has any return of infection signs.
[2020-09-16 09:29] VITALS: BP 160/80; PULSE 73; TEMP 35.9; BMI 35.8
--- NOTE | 2020-09-16 12:37 | PN.PCM_ITS ---
(1) MRSA (methicillin resistant staph aureus) culture positive Status: Resolved Code(s): Z22.322 - Carrier or suspected carrier of Methicillin resistant Staphylococcus aureus (2) Cellulitis of right foot Status: Resolved Code(s): L03.115 - Cellulitis of right lower limb (3) Ulcer of right foot with fat layer exposed Status: Resolved Code(s): L97.512 - Non-pressure chronic ulcer of other part of right foot with fat layer exposed (4) Delayed wound healing Status: Chronic Code(s): T14.8XXD - Other injury of unspecified body region, subsequent encounter (5) Diabetes type 2, uncontrolled Status: Chronic Qualifiers: Glycemic state: with hyperglycemia Qualified Code(s): E11.65 - Type 2 diabetes mellitus with hyperglycemia Code(s): E11.65 - Type 2 diabetes mellitus with hyperglycemia (6) Peripheral neuropathy Status: Chronic Qualifiers: Code(s): G62.9 - Polyneuropathy, unspecified (7) Deformity of metatarsal Status: Resolved Qualifiers: Laterality: right Qualified Code(s): M21.961 - Unspecified acquired d eformity of right lower leg Code(s): M21.969 - Unspecified acquired deformity of unspecified lower leg Type of Wound Date of Service: 09/16/20 Chief Complaint: right foot ulcers History of Wound: He is following up for chronic right foot ulcers. He reports he went to his vascular referral with Dr. Tipton and plans to follow-up in 3 months to see if intervention is needed. He has resolved discomfort to his foot this past week. He denies odor or redness. He had surgical intervention yesterday including right fourth metatarsal head resection with ulcer excision including closure. He denies fever, chill, nausea, vomiting, loss of appetite, chest pain, calf pain, shortness of breath. Progress of Wound: Stable - Physical Exam Vital Signs Temp Pulse Resp BP 96.6 F L 73 18 160/80 H 09/16/20 09:29 09/16/20 09:29 09/09/20 09:08 09/16/20 09:29 General: Alert, Oriented x3, Cooperative, No apparent distress HEENT: Atraumatic Extremities: No cyanosis, Capillary Refill Less than 3 Seconds, No Calf Tenderness, Diminished Peripheral Pulses, Edema Skin: Incision - Well aligned and coapted to dorsal and plantar aspect of foot with sutures intact. There is no gapping, erythema, streaking, odor, necrosis. His skin is adjacently atrophic and hairless. Wound Measurements and Assessment - Nurse 1 - General Ulcer Measurement Start: 08/19/20 13:41 Freq: Status: Discharge Protocol: Activity Type Activity Date Activity User E-Sign Co-Sign Detail Recorded Client Recorded Date Recorded By Edit Status 09/16/20 10:23 BKG DAEMON Active=>Discharge [facility] 09/16/20 10:23 BKG DAEMON - Nurse 2 - General Ulcer CM Notes Start: 08/19/20 13:41 Freq: Status: Discharge Protocol: Activity Type Activity Date Activity User E-Sign Co-Sign Detail Recorded Client Recorded Date Recorded By Document 09/16/20 09:46 SALUD [id number] 09/16/20 09:55 SALUD Edit Status 09/16/20 10:23 BKG DAEMON Active=>Discharge [facility] 09/16/20 10:23 BKG DAEMON 09/16/20 09:46 Wound Center Nurse 2 [Procedure/Treatment] #3 R Plantar Lat -Correct Patient No -Correct Side, Site, Position No -Correct Procedure No -Procedure Performed No -Post Debridement (cm) - Length 0 -Post Debridement (cm) - Width 0 -Post Debridement (cm) - Depth 0 -Total Square (Post) (cm) 0 -Area of Debridement (cm) - Length 0 -Area of Debridement (cm) - Width 0 -Total Square (Area) (cm) 0 -Wound/Ulcer Outcome Healed- Surgical Closure [See Physician Procedure note for Specifics] - Nurse 3 - General Ulcer D/C NN Start: 08/19/20 13:41 Freq: Status: Discharge Protocol: Activity Type Activity Date Activity User E-Sign Co-Sign Detail Recorded Client Recorded Date Recorded By Document 09/16/20 10:14 [email or web address] [id number] 09/16/20 10:14 KR Edit Status 09/16/20 10:23 BKG DAEMON Active=>Discharge [id number] 09/16/20 10:23 BKG DAEMON 09/16/20 10:14 Pain Scale: 0-10 Numeric [Pain] -Is Patient Pain Free? Yes WC - Visit Discharge [Visit Discharge Information] -Discharge Condition Stable -Ambulatory Status Ambulatory,Cane -Transportation Private Auto Musculoskeletal: No Tenderness to Palpation of Joints or Extremities, Muscle Wasting Neurological: - - Lack of normal epicritic sensation light touch is consistent with neuropathy status Psych/Mental Status: Normal Affect, Appropriate Debridement Note Post-Debridement Measurements/Treatment WC - Nurse 2 - General Ulcer CM Notes Start: 08/19/20 13:41 Freq: Status: Discharge Protocol: Activity Type Activity Date Activity User E-Sign Co-Sign Detail Recorded Client Recorded Date Recorded By Document 08/19/20 14:04 [id number] 08/19/20 14:12 Document 08/26/20 09:54 [id number] 08/26/20 10:00 Document 09/02/20 09:27 [id number] 09/02/20 09:31 Document 09/09/20 09:35 [id number] 09/09/20 09:39 Document 09/16/20 09:46 [id number] 09/16/20 09:55 08/19/20 08/26/20 09/02/20 14:04 09:54 09:27 Wound Center Nurse 2 #3 R Plantar Lat -Time 14:07 09:55 09:28 -Correct Patient Yes Yes Yes -Correct Side, Site, Position Yes Yes Yes -Correct Procedure Yes Yes Yes -Procedure Performed Yes Yes Yes -Type of Procedure Debridement Debridement Debridement -Clinical Debridement Subcutaneous Subcutaneous Subcutaneous -Tissue Removed Subcutaneous Subcutaneous Subcutaneous -Post Debridement (cm) - Length 0.9 1 1 -Post Debridement (cm) - Width 1.2 1.2 1.7 -Post Debridement (cm) - Depth 0.6 0.4 0.8 -Total Square (Post) (cm) 1.08 1.2 1.7 -Area of Debridement (cm) - Length 0.9 1 1 -Area of Debridement (cm) - Width 1.2 1.2 1.7 -Total Square (Area) (cm) 1.08 1.2 1.7 -Tunneling No No No -Undermining/Tunneling No No No -Circular Undermining No No No -Wound/Ulcer Outcome Not Healed Not Healed Not Healed -Ulcer Cleansing Rinsed/ Rinsed/ Rinsed/ Irrigated with Irrigated with Irrigated with Saline Saline Saline -Foul Odor after Cleansing No No No -Bioengineered Tissue No No No -Bleeding Controlled with Pressure Pressure Pressure -Offloading Yes Yes Yes -Type of Offloading Total Contact Surgical Shoe Surgical Shoe Cast (TCC) - Right ($) -Treatment Response Procedure Tolerated Well -Debridement - Subq, 1st 20sq cm Yes Yes Yes Pain Scale: 0-10 Numeric Is Patient Pain Free? Yes Yes Yes 09/09/20 09/16/20 09:35 09:46 Wound Center Nurse 2 #3 R Plantar Lat -Time 09:37 -Correct Patient Yes No -Correct Side, Site, Position Yes No -Correct Procedure Yes No -Procedure Performed Yes No -Type of Procedure Debridement -Clinical Debridement Subcutaneous -Tissue Removed Subcutaneous -Post Debridement (cm) - Length 1.2 0 -Post Debridement (cm) - Width 1.7 0 -Post Debridement (cm) - Depth 0.4 0 -Total Square (Post) (cm) 2.04 0 -Area of Debridement (cm) - Length 1.2 0 -Area of Debridement (cm) - Width 1.7 0 -Total Square (Area) (cm) 2.04 0 -Tunneling No -Undermining/Tunneling No -Circular Undermining No -Wound/Ulcer Outcome Not Healed Healed- Surgical Closure -Ulcer Cleansing Rinsed/ Irrigated with Saline -Foul Odor after Cleansing No -Bioengineered Tissue No -Bleeding Controlled with Pressure -Offloading Yes -Type of Offloading Surgical Shoe -Treatment Response Procedure Tolerated Well -Debridement - Subq, 1st 20sq cm Yes Pain Scale: 0-10 Numeric Is Patient Pain Free? Yes WC - Nurse 3 - General Ulcer D/C NN Start: 08/19/20 13:41 Freq: Status: Discharge Protocol: Activity Type Activity Date Activity User E-Sign Co-Sign Detail Recorded Client Recorded Date Recorded By Document 08/19/20 14:15 RB [id number] 08/19/20 14:19 RB Document 08/26/20 10:09 MT [id number] 08/26/20 10:10 MT Document 09/02/20 09:38 DL [id number] 09/02/20 09:42 DL Document 09/09/20 09:42 KR [id number] 09/09/20 09:47 KR Document 09/16/20 10:14 KR [id number] 09/16/20 10:14 KR 08/19/20 08/26/20 09/02/20 14:15 10:09 09:38 Wound Care Nurse 3 #3 R Plantar Lat -Ulcer Cleansing Rinsed/ Rinsed/ Irrigated with Irrigated with Saline Saline -Foul Odor after Cleansing No -Primary Dressing Applied Promogran Aquacel AG 2x2 Sheila Matter -Other Dressing -Primary Dressing Covered/Secured with Dry Gauze, Dry Gauze, Secured with Secured with Tape Tape -Other Covering primary layer 3 inch TCC -Aquacel AG 2x2 1 -Promogran Sheila Matter 1 Treatment Response Procedure Procedure Tolerated Well Tolerated Well Vital Signs Blood Pressure (90/60-120/80) 142/77 H Blood Pressure Mean (mm Hg) 98 Source Monitor Position Semi-Fowlers Blood Pressure Location Left Arm Pain Scale: 0-10 Numeric Is Patient Pain Free? Yes Yes WC - Visit Discharge Discharge Condition Stable Stable Stable Ambulatory Status Ambulatory Ambulatory Ambulatory Transportation Private Auto Private Auto Private Auto Medication Reconcilliation completed & No No provided to patient/care provider Clinical Summary of Care Provided Yes Yes Notes: resume Dakins at home. 09/09/20 09/16/20 09:42 10:14 Wound Care Nurse 3 #3 R Plantar Lat -Ulcer Cleansing Rinsed/ Irrigated with Saline -Foul Odor after Cleansing No -Primary Dressing Applied -Other Dressing moist to dry dressing -Primary Dressing Covered/Secured with Dry Gauze, Secured with Tape -Other Covering -Aquacel AG 2x2 -Promogran Sheila Matter Treatment Response Vital Signs Blood Pressure (90/60-120/80) Blood Pressure Mean (mm Hg) Source Position Blood Pressure Location Pain Scale: 0-10 Numeric Is Patient Pain Free? Yes Yes WC - Visit Discharge Discharge Condition Stable Stable Ambulatory Status Ambulatory Ambulatory,Cane Transportation Private Auto Private Auto Medication Reconcilliation completed & provided to patient/care provider Clinical Summary of Care Provided Notes: Wound debrided: post operative site Laterality: Right No debridement was completed today Assessment/Plan Clinical Impression(s) from Imaging Studies Foot X-Ray 08/26/20 12:15 IMPRESSION: Normal x-ray examination of the foot. No radiographic evidence of osteomyelitis. Electronically Signed: Earl Perez MD at 8:51 EST Tel , Service support , Active Problems (Last Reviewed 08/04/20 @ 18:16 by Nora Jack LOCATOR, LOCATOR-C) Venous insufficiency (chronic) (peripheral) (Chronic) Delayed wound healing (Chronic) Peripheral neuropathy (Chronic) Diabetes type 2, uncontrolled (Chronic) Assessment: POD #1 right fourth metatarsal head resection and ulcer excision with closure secondary to prominent fourth metatarsal head metatarsal deformity and chronic right foot ulcer. delayed wound healing right plantar DFU. diabetes with neuropathy. Cellulitis resolved; MRSA noted Plan: I reviewed and discussed his case. He is postoperative day #1 and his surgical site appears healthy intact without infection. A dressing of Betadine wet-to-dry was applied. He was advised to keep this clean, dry, and intact until follow-up at the foot and ankle center next week. Strict nonweightbearing was recommended with use of a cane and heel weightbearing for transfers only. Chanda dang has a surgical shoe. He was reassured no local signs of infection are noted today and I do not recommend antibiotics. The resected fourth metatarsal head was sent to pathology microbiology to confirm absence of bone infection which was not clinically suspected intraoperatively. I am mainly interested in the pathology report. To reduce overall activity. I reviewed his noninvasive vascular studies which do not demonstrate gross abnormalities. There is potential small vessel abnormalities. Although he is making progress, it is slow and I recommend a vascular referral for arterial and venous evaluation at this time. A referral to Dr. Tipton was initiated previously. His venous Doppler exams also reviewed reviewed including reflux evaluation he does have venous insufficiency. He was advised to wear compression dressing. He saw Dr. Tipton, vascular surgeon on 08-05-2020 and his note was reviewed. He has fairly normal arterial blood flow and it is believed that he should be able to heal his wound with his current perfusion. For right leg venous issues he was advised to continue compression and there is a plan for right GSV a Varithena and possible right ASV Varithena and Varithena ablation of the residual branches. The same plan applies to the left lower extremity venous insufficiency condition. He will follow-up in about 3 months. To elevate limbs at rest. To perform manual muscular contraction hourly while awake. To avoid salt in the diet. Referral will be performed to the silver buffer via nutritional services will be pursued if nonhealing continues. He is advised to continue to work on maintaining an appropriate diet and glucose management to optimize healing. I recommended nutritional supplementation as well.
== END 2020-09-16 10:22 | disposition home or self-care (01) ==
LOC: WC 09:15
PROVIDERS: PCP Nurse Practitioner; Referring Provider Podiatrist; Visit Provider Podiatrist
DX: E11.621 Type 2 diabetes mellitus with foot ulcer (principal); L97.512 Non-pressure chronic ulcer of other part of right foot with fat layer exposed; A49.02 Methicillin resistant Staphylococcus aureus infection, unspecified site; L03.115 Cellulitis of right lower limb; E11.65 Type 2 diabetes mellitus with hyperglycemia; E11.42 Type 2 diabetes mellitus with diabetic polyneuropathy; M21.961 Unspecified acquired deformity of right lower leg; I87.2 Venous insufficiency (chronic) (peripheral)
CPT/HCPCS: 11042; 29445; 36415; 73630; 80053; 85025; 85652; 86140; 87070; 87075; 87077; 87186; 87205; 87640; 99213; G0463

== ENCOUNTER 2020-11-04 09:15 | Outpatient (RCR) | payer MEDICAID, SELFPAY ==
[2020-10-13 14:27] VITALS: BMI 37.5
[2020-10-19 18:01] VITALS: BMI 37.7
[2020-10-21 08:12] VITALS: BP 168/86; PULSE 68; RESP 18; TEMP 36; BMI 37.7
--- NOTE | 2020-10-21 09:10 | PCM.WC.PN ---
(1) Delayed wound healing Status: Chronic Code(s): T14.8XXD - Other injury of unspecified body region, subsequent encounter (2) Ulcer of right foot with fat layer exposed Status: Chronic Code(s): L97.512 - Non-pressure chronic ulcer of other part of right foot with fat layer exposed (3) Type 2 diabetes mellitus with diabetic polyneuropathy Status: Chronic Qualifiers: Code(s): E11.42 - Type 2 diabetes mellitus with diabetic polyneuropathy Type of Wound Date of Service: 10/21/20 Chief Complaint: right foot ulcers History of Wound: He is following up for chronic right foot ulcers. He had surgical intervention yesterday on 11/16/2019 including closure. He denies fever, chill, nausea, vomiting. He had partial suture removal performed last week and was advised to come in for a total contact cast application today. He continues to smoke. Progress of Wound: Improving - Physical Exam Vital Signs Temp Pulse Resp BP 96.8 F L 68 18 168/86 H 10/21/20 08:12 10/21/20 08:12 10/21/20 08:12 10/21/20 08:12 General: Alert, Oriented x3, Cooperative, No apparent distress HEENT: Atraumatic Extremities: No cyanosis, Capillary Refill Less than 3 Seconds, No Calf Tenderness, Diminished Peripheral Pulses, Edema - mild Skin: Ulcer/ Wound - No purulence, erythema, streaking, odor, infection. There is continued epithelialization to the plantar aspect of the ulcer size is very small. Callus was debrided from his previous surgical ulcer excision site. Dorsal incision healed Wound Measurements and Assessment WC - Nurse 1 - General Ulcer Measurement Start: 10/21/20 08:12 Freq: Status: Active Protocol: Activity Type Activity Date Activity User E-Sign Co-Sign Detail Recorded Client Recorded Date Recorded By Document 10/21/20 08:12 DL [id number] 10/21/20 08:20 DL 10/21/20 08:12 Wound Center Nurse 1 [Ulcer Assessment] #4 R Plantar Lat -Current Size (cm) - Length 1 -Current Size (cm) - Width 0.3 -Current Size (cm) - Depth 0.2 -Total Square Cm 0.3 -Photo Taken Yes -Exudate Amt Small -Exudate Type Serosanguineous -Wound Margin Thickened -Granulation Amt Small (1-33%) -Granulation Quality [place] -Necrosis Amt Small (1-33%) -Necrotic Tissue Type Adherent Slough -Structure Exposed N/A -Texture (Kathia-wound Skin Appearance) Scarring -Moisture (Kathia-wound Skin Appearance No Abnormality ) -Color (Kathia-wound Skin Appearance) No Abnormality -Temperature (Kathia-wound Skin No Abnormality Appearance) (Pt Warm) -Tenderness on Palpation (Kathia-wound No Skin Appearance) -Ulcer Cleansing Wound Cleanser -Foul Odor after Cleansing No -Anesthetic Used 4% Lidocaine Solution YOGESH - Nurse 2 - General Ulcer CM Notes Start: 10/21/20 08:12 Freq: Status: Active Protocol: Activity Type Activity Date Activity User E-Sign Co-Sign Detail Recorded Client Recorded Date Recorded By Document 10/21/20 08:30 SALUD [id number] 10/21/20 08:34 SALUD 10/21/20 08:30 Wound Center Nurse 2 [Procedure/Treatment] -Time 08:31 -Correct Patient Yes -Correct Side, Site, Position Yes -Correct Procedure Yes -Procedure Performed Yes -Type of Procedure Debridement -Clinical Debridement Subcutaneous -Tissue Removed Subcutaneous -Post Debridement (cm) - Length 0.1 -Post Debridement (cm) - Width 0.2 -Post Debridement (cm) - Depth 0.2 -Total Square (Post) (cm) 0.02 -Area of Debridement (cm) - Length 0.1 -Area of Debridement (cm) - Width 0.2 -Total Square (Area) (cm) 0.02 -Tunneling No -Undermining/Tunneling No -Circular Undermining No -Wound/Ulcer Outcome Not Healed -Ulcer Cleansing Rinsed/ Irrigated with Saline -Foul Odor after Cleansing No -Bioengineered Tissue No -Bleeding Controlled with Pressure -Offloading Yes -Type of Offloading Total Contact Cast (TCC) - Right ($) -Treatment Response Procedure Tolerated Well -Debridement - Subq, 1st 20sq cm Yes [See Physician Procedure note for Specifics] Pain Scale: 0-10 Numeric [Pain] -Is Patient Pain Free? Yes Musculoskeletal: No Tenderness to Palpation of Joints or Extremities, Muscle Wasting Neurological: - - Lack of normal epicritic sensation to light touch Debridement Note Post-Debridement Measurements/Treatment [id number] - Nurse 2 - General Ulcer CM Notes Start: 10/21/20 08:12 Freq: Status: Active Protocol: Activity Type Activity Date Activity User E-Sign Co-Sign Detail Recorded Client Recorded Date Recorded By Document 10/21/20 08:30 SALUD [id number] 10/21/20 08:34 SALUD 10/21/20 08:30 Wound Center Nurse 2 #4 R Plantar Lat -Time 08:31 -Correct Patient Yes -Correct Side, Site, Position Yes -Correct Procedure Yes -Procedure Performed Yes -Type of Procedure Debridement -Clinical Debridement Subcutaneous -Tissue Removed Subcutaneous -Post Debridement (cm) - Length 0.1 -Post Debridement (cm) - Width 0.2 -Post Debridement (cm) - Depth 0.2 -Total Square (Post) (cm) 0.02 -Area of Debridement (cm) - Length 0.1 -Area of Debridement (cm) - Width 0.2 -Total Square (Area) (cm) 0.02 -Tunneling No -Undermining/Tunneling No -Circular Undermining No -Wound/Ulcer Outcome Not Healed -Ulcer Cleansing Rinsed/ Irrigated with Saline -Foul Odor after Cleansing No -Bioengineered Tissue No -Bleeding Controlled with Pressure -Offloading Yes -Type of Offloading Total Contact Cast (TCC) - Right ($) -Treatment Response Procedure Tolerated Well -Debridement - Subq, 1st 20sq cm Yes Pain Scale: 0-10 Numeric Is Patient Pain Free? Yes Wound debrided: plantar foot ulcer Laterality: Right Wound Grade/Stage: grade 1 Type of Debridement: Excisional debridement Anesthesia Used: 5% Lidocaine Gel Depth: in the subcutaneous layer Percentage of wound debrided: 100 Instrument Used: #15 blade Tissue Removed: fibrous, devitalized subcutaneous, biofilm, slough Severity: Fat Layer Exposed Amount of bleeding with debridement: Mild Bleeding Controlled with: Pressure Patient tolerated procedure well Assessment/Plan Active Problems (Last Reviewed 08/04/20 @ 18:16 by Nora Jack NP, BUSINESS MANAGEMENT ANALYST-C) Delayed wound healing (Chronic) Ulcer of right foot with fat layer exposed (Chronic) Type 2 diabetes mellitus with diabetic polyneuropathy (Chronic) Assessment: s/p right fourth metatarsal head resection and ulcer excision with closure secondary to prominent fourth metatarsal head metatarsal deformity and chronic right foot ulcer with delayed healing. delayed wound healing right plantar DFU. diabetes with neuropathy. continued tobacco use Plan: I reviewed and discussed his case. He is postoperative and his surgical site appears healthy intact without infection. Debridement was performed as noted in the clinical panel. Hydrogel and gauze were applied. Additionally verbal consent was obtained to apply a total contact cast. This was applied according standard protocol in a neutral well-padded manner. He tolerated this well. He was advised to keep this clean, dry, and intact until follow-up at the [facility] next week. Strict nonweightbearing was recommended with use of a cane and heel weightbearing for transfers only. He has a surgical shoe. He was reassured no local signs of infection are noted today and I do not recommend antibiotics. The resected fourth metatarsal head was sent to pathology microbiology to confirm absence of bone infection which was not clinically suspected intraoperatively. I am mainly interested in the pathology report which was negative for osteomyelitis. To reduce overall activity. I reviewed his noninvasive vascular studies which do not demonstrate gross abnormalities. There is potential small vessel abnormalities. Although he is making progress, it is slow and I recommend a vascular referral for arterial and venous evaluation at this time. A referral to Dr. Tipton was initiated previously. His venous Doppler exams also reviewed reviewed including reflux evaluation he does have venous insufficiency. He was advised to wear compression dressing. He saw Dr. Tipton, vascular surgeon on 08-05-2020 and his note was reviewed. He has fairly normal arterial blood flow and it is believed that he should be able to heal his wound with his current perfusion. For right leg venous issues he was advised to continue compression and there is a plan for right GSV a Varithena and possible right ASV Varithena and Varithena ablation of the residual branches. The same plan applies to the left lower extremity venous insufficiency condition. He was advised to discontinue smoking which affects the perfusion to his foot and is likely contributing to his delayed healing. He will follow-up with Dr. Tipton as previously advised. To elevate limbs at rest. To perform manual muscular contraction hourly while awake. To avoid salt in the diet. Referral will be performed to the it field technician previously via nutritional services will be pursued if nonhealing continues. He is advised to continue to work on maintaining an appropriate diet and glucose management to optimize healing. I recommended nutritional supplementation as well.
[2020-10-28 09:14] VITALS: BP 176/86; PULSE 75; RESP 18; TEMP 36; BMI 37.7
--- NOTE | 2020-10-28 11:00 | PN.PCM_ITS ---
(1) Ulcer of right foot with fat layer exposed Status: Chronic Code(s): L97.512 - Non-pressure chronic ulcer of other part of right foot with fat layer exposed (2) Delayed wound healing Status: Chronic Code(s): T14.8XXD - Other injury of unspecified body region, subsequent encounter (3) Type 2 diabetes mellitus with diabetic polyneuropathy Status: Chronic Qualifiers: Code(s): E11.42 - Type 2 diabetes mellitus with diabetic polyneuropathy (4) Venous insufficiency (chronic) (peripheral) Status: Chronic Code(s): I87.2 - Venous insufficiency (chronic) (peripheral) (5) Deformity of metatarsal Status: Chronic Qualifiers: Laterality: right Qualified Code(s): M21.961 - Unspecified acquired deformity of right lower leg Code(s): M21.969 - Unspecified acquired deformity of unspecified lower leg Type of Wound Date of Service: 10/28/20 Chief Complaint: right foot ulcers History of Wound: He is following up for chronic right foot ulcers. He had surgical intervention yesterday on 11/16/2019 including closure. He denies fever, chill, nausea, vomiting. He kept his total contact cast in place as advised. He would not like to proceed with another cast application this week because it is very hard for him to complete his daily activities with less restriction. Progress of Wound: Improving - Physical Exam Vital Signs Temp Pulse Resp BP 96.8 F L 75 18 176/86 H 10/28/20 09:14 10/28/20 09:14 10/28/20 09:14 10/28/20 09:14 General: Alert, Oriented x3, Cooperative, No apparent distress HEENT: Atraumatic Extremities: No cyanosis, Capillary Refill Less than 3 Seconds, No Calf Tenderness, Diminished Peripheral Pulses, Edema - Decreased Skin: Ulcer/ Wound - No purulence, erythema, streaking, odor, infection. Near complete epithelialization is noted. There are areas for 2 deeper Vicryl sutures are noted and these were gently removed. No deeper tissue exposure, necrosis, bogginess or fluctuance on palpation are noted. The ulcer bed granular/subhemorr, - - Adjacent skin is hairless and atrophic Wound Measurements and Assessment WC - Nurse 1 - General Ulcer Measurement Start: 10/21/20 08:12 Freq: Status: Active Protocol: Activity Type Activity Date Activity User E-Sign Co-Sign Detail Recorded Client Recorded Date Recorded By Document 10/28/20 09:14 ROB [id number] 10/28/20 09:25 DL 10/28/20 09:14 Wound Center Nurse 1 [Ulcer Assessment] #4 R Plantar Lat -Current Size (cm) - Length 0.2 -Current Size (cm) - Width 0.2 -Current Size (cm) - Depth 0.2 -Total Square Cm 0.04 -Photo Taken No -Maximum Distance #2 (cm) 0.2 -Circular Undermining Yes -Exudate Amt Medium -Exudate Type Serosanguineous -Wound Margin Distinct, Outline Attached -Granulation Amt Small (1-33%) -Necrosis Amt Small (1-33%) -Necrotic Tissue Type Adherent Slough -Structure Exposed N/A -Texture (Kathia-wound Skin Appearance) Scarring -Moisture (Kathia-wound Skin Appearance Maceration ) -Color (Kathia-wound Skin Appearance) No Abnormality -Temperature (Kathia-wound Skin No Abnormality Appearance) (Pt Warm) -Tenderness on Palpation (Kathia-wound No Skin Appearance) -Ulcer Cleansing Wound Cleanser -Foul Odor after Cleansing No -Anesthetic Used 4% Lidocaine Solution WC - Nurse 2 - General Ulcer CM Notes Start: 10/21/20 08:12 Freq: Status: Active Protocol: Activity Type Activity Date Activity User E-Sign Co-Sign Detail Recorded Client Recorded Date Recorded By Document 10/28/20 09:36 SALUD [id number] 10/28/20 09:42 SALUD 10/28/20 09:36 Wound Center Nurse 2 [Procedure/Treatment] -Time 09:37 -Correct Patient Yes -Correct Side, Site, Position Yes -Correct Procedure Yes -Procedure Performed Yes -Type of Procedure Debridement -Clinical Debridement Subcutaneous -Tissue Removed Subcutaneous -Post Debridement (cm) - Length 1.8 -Post Debridement (cm) - Width 0.2 -Post Debridement (cm) - Depth 0.2 -Total Square (Post) (cm) 0.36 -Area of Debridement (cm) - Length 1.8 -Area of Debridement (cm) - Width 0.2 -Total Square (Area) (cm) 0.36 -Tunneling No -Undermining/Tunneling No -Circular Undermining No -Wound/Ulcer Outcome Not Healed -Ulcer Cleansing Rinsed/ Irrigated with Saline -Foul Odor after Cleansing No -Bioengineered Tissue No -Bleeding Controlled with Pressure -Offloading Yes -Type of Offloading Camwalker -Treatment Response Procedure Tolerated Well -Debridement - Subq, 1st 20sq cm Yes [See Physician Procedure note for Specifics] Pain Scale: 0-10 Numeric [Pain] -Is Patient Pain Free? Yes - Nurse 3 - General Ulcer D/C NN Start: 10/21/20 08:12 Freq: Status: Active Protocol: Activity Type Activity Date Activity User E-Sign Co-Sign Detail Recorded Client Recorded Date Recorded By Document 10/28/20 09:49 DL [id number] 10/28/20 09:51 DL 10/28/20 09:49 Wound Care Nurse 3 [Wound Dressing] #4 R Plantar Lat -Ulcer Cleansing Rinsed/ Irrigated with Saline -Foul Odor after Cleansing No -Primary Dressing Applied C Hydrogel ($) -Primary Dressing Covered/Secured Dry Gauze & with Roll Gauze, Secured with Tape [Post Procedure Tolerated] -Treatment Response Procedure Tolerated Well Pain Scale: 0-10 Numeric [Pain] -Is Patient Pain Free? Yes - Visit Discharge [Visit Discharge Information] -Discharge Condition Stable -Transportation Private Auto Musculoskeletal: No Tenderness to Palpation of Joints or Extremities, Muscle Wasting, - - Forefoot deformities noted with prominent metatarsal head right Neurological: - - Lack of normal epicritic sensation is consistent with neuropathy status Psych/Mental Status: Normal Affect, Appropriate Debridement Note Post-Debridement Measurements/Treatment - Nurse 2 - General Ulcer CM Notes Start: 10/21/20 08:12 Freq: Status: Active Protocol: Activity Type Activity Date Activity User E-Sign Co-Sign Detail Recorded Client Recorded Date Recorded By Document 10/21/20 08:30 [id number] 10/21/20 08:34 Document 10/28/20 09:36 [id number] 10/28/20 09:42 10/21/20 10/28/20 08:30 09:36 Wound Center Nurse 2 #4 R Plantar Lat -Time 08:31 09:37 -Correct Patient Yes Yes -Correct Side, Site, Position Yes Yes -Correct Procedure Yes Yes -Procedure Performed Yes Yes -Type of Procedure Debridement Debridement -Clinical Debridement Subcutaneous Subcutaneous -Tissue Removed Subcutaneous Subcutaneous -Post Debridement (cm) - Length 0.1 1.8 -Post Debridement (cm) - Width 0.2 0.2 -Post Debridement (cm) - Depth 0.2 0.2 -Total Square (Post) (cm) 0.02 0.36 -Area of Debridement (cm) - Length 0.1 1.8 -Area of Debridement (cm) - Width 0.2 0.2 -Total Square (Area) (cm) 0.02 0.36 -Tunneling No No -Undermining/Tunneling No No -Circular Undermining No No -Wound/Ulcer Outcome Not Healed Not Healed -Ulcer Cleansing Rinsed/ Rinsed/ Irrigated with Irrigated with Saline Saline -Foul Odor after Cleansing No No -Bioengineered Tissue No No -Bleeding Controlled with Pressure Pressure -Offloading Yes Yes -Type of Offloading Total Contact Camwalker Cast (TCC) - Right ($) -Treatment Response Procedure Procedure Tolerated Well Tolerated Well -Debridement - Subq, 1st 20sq cm Yes Yes Pain Scale: 0-10 Numeric Is Patient Pain Free? Yes Yes - Nurse 3 - General Ulcer D/C NN Start: 10/21/20 08:12 Freq: Status: Active Protocol: Activity Type Activity Date Activity User E-Sign Co-Sign Detail Recorded Client Recorded Date Recorded By Document 10/28/20 09:49 DL [id number] 10/28/20 09:51 DL 10/28/20 09:49 Wound Care Nurse 3 #4 R Plantar Lat -Ulcer Cleansing Rinsed/ Irrigated with Saline -Foul Odor after Cleansing No -Primary Dressing Applied C Hydrogel ($) -Primary Dressing Covered/Secured with Dry Gauze & Roll Gauze, Secured with Tape Treatment Response Procedure Tolerated Well Pain Scale: 0-10 Numeric Is Patient Pain Free? Yes - Visit Discharge Discharge Condition Stable Transportation Private Auto Wound debrided: plantar foot Laterality: Right Wound Grade/Stage: grade 1 Type of Debridement: Excisional debridement Anesthesia Used: 5% Lidocaine Gel Depth: in the subcutaneous layer Percentage of wound debrided: 100 Instrument Used: #15 blade Tissue Removed: fibrous, devitalized subcutaneous, biofilm, slough Severity: Fat Layer Exposed Amount of bleeding with debridement: Mild Bleeding Controlled with: Pressure Patient tolerated procedure well Assessment/Plan Active Problems (Last Reviewed 08/04/20 @ 18:16 by Nora Jack HAND TUBE WINDER, HAND TUBE WINDER-C) Delayed wound healing (Chronic) Ulcer of right foot with fat layer exposed (Chronic) Type 2 diabetes mellitus with diabetic polyneuropathy (Chronic) Assessment: s/p right fourth metatarsal head resection and ulcer excision with closure secondary to prominent fourth metatarsal head metatarsal deformity and chronic right foot ulcer with delayed healing. delayed wound healing right plantar DFU. diabetes with neuropathy. continued tobacco use Plan: I reviewed and discussed his case. He is postoperative and his surgical site appears healthy intact without infection. Debridement was performed as noted in the clinical panel. Residual Vicryl suture was gently removed from the remaining wall wound bed. Hydrogel and gauze were applied. I recommend application of a total contact cast again this week and he defers. He relates he will consider it next week again if needed. He was advised to wear his cam walker boot and to reduce activity to allow this ulcer to continue healing. To change his dressing daily. He has a surgical shoe. He was reassured no local signs of infection are noted today and I do not recommend antibiotics. The resected fourth metatarsal head was previously sent to pathology microbiology to confirm absence of bone infection which was not clinically suspected intraoperatively. I am mainly interested in the pathology report which was negative for osteomyelitis. To reduce overall activity. I reviewed his noninvasive vascular studies which do not demonstrate gross abnormalities. There is potential small vessel abnormalities. Although he is making progress, it is slow and I recommend a vascular referral for arterial and venous evaluation at this time. A referral to Dr. Tipton was initiated previously. His venous Doppler exams also reviewed reviewed including reflux evaluation he does have venous insufficiency. He was advised to wear compression dressing. He saw Dr. Tipton, vascular surgeon on 08-05-2020 and his note was reviewed. He has fairly normal arterial blood flow and it is believed that he should be able to heal his wound with his current perfusion. For right leg venous issues he was advised to continue compression and there is a plan for right GSV a Varithena and possible right ASV Varithena and Varithena ablation of the residual branches. The same plan applies to the left lower extremity venous insufficiency condition. He was advised to discontinue smoking which affects the perfusion to his foot and is likely contributing to his delayed healing. He will follow-up with Dr. Tiptno as previously advised. To elevate limbs at rest. To perform manual muscular contraction hourly while awake. To avoid salt in the diet. Referral will be performed to the dynamics ax technical architect previously via nutritional services will be pursued if nonhealing continues. He is advised to continue to work on maintaining an appropriate diet and glucose management to optimize healing. I recommended nutritional supplementation as well. Smoking cessation was advised and is imperative for healing. Return to clinic in 1 week or sooner if he has any concerns. I answered his questions. Note: [employer] speech recognition certification engineer software was used to create portions of this document. Sound-alike and misspelled words, as well as other certification engineer errors may be contained in the documentation. The problems addressed require a moderate decision making level which includes one or more chronic illnesses (w/ exacerbation, progression, or side effects), two or more stable chronic illnesses, one undiagnosed new problem w/ uncertain prognosis, one acute illness with systemic symptoms, or one acute complicated injury. The medical decision making level is moderate. There is noted moderate risk of morbidity after considering this treatment plan and diagnostic data. Considerations were given to prescription management, decisions regarding surgical options, or social determinants of health.
[2020-11-04 09:21] VITALS: BP 169/79; PULSE 68; RESP 18; TEMP 36.5; BMI 37.7
--- NOTE | 2020-11-04 10:24 | PN.PCM_ITS ---
(1) Ulcer of right foot with fat layer exposed Status: Resolved Code(s): L97.512 - Non-pressure chronic ulcer of other part of right foot with fat layer exposed (2) Type 2 diabetes mellitus with diabetic polyneuropathy Status: Chronic Qualifiers: Code(s): E11.42 - Type 2 diabetes mellitus with diabetic polyneuropathy (3) Venous insufficiency (chronic) (peripheral) Status: Chronic Code(s): I87.2 - Venous insufficiency (chronic) (peripheral) (4) Deformity of metatarsal Status: Chronic Qualifiers: Laterality: right Qualified Code(s): M21.961 - Unspecified acquired deformity of right lower leg Code(s): M21.969 - Unspecified acquired deformity of unspecified lower leg Type of Wound Date of Service: 11/04/20 Chief Complaint: right foot ulcer History of Wound: He is following up for chronic right foot ulcers. He has one site that remains open at his previous fourth metatarsal head resection with ulcer excision including closure with partial dehiscence and delayed healing. He denies fever, chill, nausea, vomiting. He is also previously completed a series of total contact casting and advanced wound healing product applications. This past week he has been offloading with a cam walker boot and he denies drainage. He thinks the ulcer site is healed. Progress of Wound: Healed today - Physical Exam Vital Signs Temp Pulse Resp BP 97.7 F L 68 18 169/79 H 11/04/20 09:21 11/04/20 09:21 11/04/20 09:21 11/04/20 09:21 General: Alert, Oriented x3, Cooperative, No apparent distress HEENT: Atraumatic Extremities: No cyanosis, Capillary Refill Less than 3 Seconds, No Calf Tenderness, Diminished Peripheral Pulses, Edema - Rare, - - Status post metatarsal head resection with adjacent dorsal contraction of lesser toes and dominant other metatarsal heads. Compartments are soft to palpate. Skin: Ulcer/ Wound - There is no ulcer today and full epithelialization is noted. There is no purulence, erythema, streaking, infection. His skin remains atrophic and thin without hair Wound Measurements and Assessment WC - Nurse 1 - General Ulcer Measurement Start: 10/21/20 08:12 Freq: Status: Discharge Protocol: Activity Type Activity Date Activity User E-Sign Co-Sign Detail Recorded Client Recorded Date Recorded By Document 11/04/20 09:21 RB [id number] 11/04/20 09:23 RB Edit Status 11/04/20 09:50 BKG DAEMON Active=>Discharge [place] [id number] 11/04/20 09:50 BKG DAEMON 11/04/20 09:21 Wound Center Nurse 1 [Ulcer Assessment] #4 R Plantar Lat -Combined with other wound No -Current Size (cm) - Length 0.1 -Current Size (cm) - Width 0.1 -Current Size (cm) - Depth 0.1 -Total Square Cm 0.01 -Tunneling No -Undermining/Tunneling No -Circular Undermining No -Exudate Amt None Present -Wound Margin Thickened -Slough/Fibrin Yes -Necrosis Amt Small (1-33%) -Necrotic Tissue Type Adherent Slough -Structure Exposed N/A -Texture (Kathia-wound Skin Appearance) Assessed, Scarring -Color (Kathia-wound Skin Appearance) Assessed -Temperature (Kathia-wound Skin No Abnormality Appearance) (Pt Warm) -Tenderness on Palpation (Kathia-wound No Skin Appearance) -Ulcer Cleansing Rinsed/ Irrigated with Saline -Foul Odor after Cleansing No -Anesthetic Used 4% Lidocaine Solution WC - Nurse 2 - General Ulcer CM Notes Start: 10/21/20 08:12 Freq: Status: Discharge Protocol: Activity Type Activity Date Activity User E-Sign Co-Sign Detail Recorded Client Recorded Date Recorded By Edit Status 11/04/20 09:50 BKG DAEMON Active=>Discharge [place] [id number] 11/04/20 09:50 BKG DAEMON WC - Nurse 3 - General Ulcer D/C NN Start: 10/21/20 08:12 Freq: Status: Discharge Protocol: Activity Type Activity Date Activity User E-Sign Co-Sign Detail Recorded Client Recorded Date Recorded By Edit Status 11/04/20 09:50 BKG DAEMON Active=>Discharge [place] [id number] 11/04/20 09:50 BKG DAEMON Musculoskeletal: No Tenderness to Palpation of Joints or Extremities, Muscle Wasting, - - Intrinsic minus foot Neurological: - - Lack of normal epicritic sensation consistent with neuropathy status Debridement Note Post-Debridement Measurements/Treatment WC - Nurse 2 - General Ulcer CM Notes Start: 10/21/20 08:12 Freq: Status: Discharge Protocol: Activity Type Activity Date Activity User E-Sign Co-Sign Detail Recorded Client Recorded Date Recorded By Document 10/21/20 08:30 [id number] 10/21/20 08:34 JF Document 10/28/20 09:36 JF [id number] 10/28/20 09:42 JF 10/21/20 10/28/20 08:30 09:36 Wound Center Nurse 2 #4 R Plantar Lat -Time 08:31 09:37 -Correct Patient Yes Yes -Correct Side, Site, Position Yes Yes -Correct Procedure Yes Yes -Procedure Performed Yes Yes -Type of Procedure Debridement Debridement -Clinical Debridement Subcutaneous Subcutaneous -Tissue Removed Subcutaneous Subcutaneous -Post Debridement (cm) - Length 0.1 1.8 -Post Debridement (cm) - Width 0.2 0.2 -Post Debridement (cm) - Depth 0.2 0.2 -Total Square (Post) (cm) 0.02 0.36 -Area of Debridement (cm) - Length 0.1 1.8 -Area of Debridement (cm) - Width 0.2 0.2 -Total Square (Area) (cm) 0.02 0.36 -Tunneling No No -Undermining/Tunneling No No -Circular Undermining No No -Wound/Ulcer Outcome Not Healed Not Healed -Ulcer Cleansing Rinsed/ Rinsed/ Irrigated with Irrigated with Saline Saline -Foul Odor after Cleansing No No -Bioengineered Tissue No No -Bleeding Controlled with Pressure Pressure -Offloading Yes Yes -Type of Offloading Total Contact Camwalker Cast (TCC) - Right ($) -Treatment Response Procedure Procedure Tolerated Well Tolerated Well -Debridement - Subq, 1st 20sq cm Yes Yes Pain Scale: 0-10 Numeric Is Patient Pain Free? Yes Yes WC - Nurse 3 - General Ulcer D/C NN Start: 10/21/20 08:12 Freq: Status: Discharge Protocol: Activity Type Activity Date Activity User E-Sign Co-Sign Detail Recorded Client Recorded Date Recorded By Document 10/28/20 09:49 DL [id number] 10/28/20 09:51 DL 10/28/20 09:49 Wound Care Nurse 3 #4 R Plantar Lat -Ulcer Cleansing Rinsed/ Irrigated with Saline -Foul Odor after Cleansing No -Primary Dressing Applied C Hydrogel ($) -Primary Dressing Covered/Secured with Dry Gauze & Roll Gauze, Secured with Tape Treatment Response Procedure Tolerated Well Pain Scale: 0-10 Numeric Is Patient Pain Free? Yes WC - Visit Discharge Discharge Condition Stable Transportation Private Auto Wound debrided: plantar foot Laterality: Right No debridement was completed today - The ulcer site is healed today Assessment/Plan Active Problems (Last Reviewed 08/04/20 @ 18:16 by Nora Jack NP, [facility]) Venous insufficiency (chronic) (peripheral) (Chronic) Deformity of metatarsal (Chronic) Delayed wound healing (Chronic) Type 2 diabetes mellitus with diabetic polyneuropathy (Chronic) Assessment: s/p right fourth metatarsal head resection and ulcer excision with closure secondary to prominent fourth metatarsal head metatarsal deformity and chronic right foot ulcer with prior delayed healing --healed today. diabetes with neuropathy. continued tobacco use Plan: I reviewed and discussed his case. The ulcer site is healed today and he was advised skin remodeling will occur specifically for at least several weeks. To discontinue dressing care. To avoid soaking. To maintain good adjacent skin integrity by moisturizing daily with lotion. Continue to offload with cam walker boot for at least 2 more weeks. He is discharged from the wound healing center at this time because the ulcer site is healed. He was advised to maintain good glycemic control and continue with smoking cessation to prevent recurrence. He will follow-up at the foot and ankle center in 1 month for healed ulcer check and also for palliative nail help in which she does not feel safe performing on his own. A risk assessment will also be repeated at this time. He was also advised to continue follow-up with Dr. Tipton for venous intervention and evaluation as previously designated. I answered all of his questions. Note: Spacious speech recognition simplex printer installer software was used to create portions of this document. Sound-alike and misspelled words, as well as other simplex printer installer errors may be contained in the documentation. The problems addressed require a moderate decision making level which includes one or more chronic illnesses (w/ exacerbation, progression, or side effects), two or more stable chronic illnesses, one undiagnosed new problem w/ uncertain prognosis, one acute illness with systemic symptoms, or one acute complicated injury. The medical decision making level is moderate. There is noted moderate risk of morbidity after considering this treatment plan and diagnostic data. Considerat ions were given to prescription management, decisions regarding surgical options, or social determinants of health.
== END 2020-11-04 09:50 | disposition home or self-care (01) ==
LOC: WC 09:15
PROVIDERS: PCP Nurse Practitioner; Visit Provider Podiatrist
DX: E11.621 Type 2 diabetes mellitus with foot ulcer (principal); L97.512 Non-pressure chronic ulcer of other part of right foot with fat layer exposed; E11.40 Type 2 diabetes mellitus with diabetic neuropathy, unspecified; M20.61 Acquired deformities of toe(s), unspecified, right foot; Z87.891 Personal history of nicotine dependence; Z89.421 Acquired absence of other right toe(s)
CPT/HCPCS: 11042; 29445; 99213; G0463

== ENCOUNTER 2021-10-18 22:16 | Outpatient (CLI) | payer MEDICAID, SELFPAY ==
[2021-10-18 22:29] LABS: Hematocrit 43.4 % (40-54); Hemoglobin 13.9 g/dL (13.0-16.5); Mean Corpuscular Hgb 29.6 pg (27.0-32.0); Mean Corpuscular Volume 92.5 fL (80-94); Mean Platelet Vol. 12.6 fl (6.2-12.0); Platelet Count 256 K/mm3 (150-450); RBC Distribution Width CV 13.8 % (11.6-14.6); RBC Distribution Width SD 46.8 fl (35.1-43.9); Red Blood Count 4.69 M/mm3 (4.6-6.2); White Blood Count 9.4 K/mm3 (4.4-11.0)
[2021-10-18 22:45] LABS: ALB/GLOB Ratio 0.9 RATIO (0.9-2.4); AST(SGOT) 12 U/L (15-37); Alanine Aminotransfer ALT/SGPT 24 U/L (16-61); Albumin, Serum 3.9 g/dL (3.2-5.0); Alkaline Phosphatase 78 U/L (45-117); Anion Gap 4 (5-15); BUN 19 mg/dL (7-18); BUN/Creat Ratio 16.8 RATIO (10-20); Calcium,Total 9.2 mg/dL (8.5-10.1); Chloride 107 mmol/L (98-107); Cholesterol 160 mg/dL (200); Creatinine, Serum 1.13 mg/dL (0.70-1.30); EST Glomerular Filtration Rate 70 mL/min (>60); Est Glom Filt Rate - Afr Amer 85 mL/min (>60); Globulin 4.2 g/dL (2.2-4.2); Glucose 111 mg/dL (74-106); High Density Lipoprotein 33 mg/dL; Potassium 4.5 mmol/L (3.5-5.1); Protein, Total 8.1 g/dL (6.4-8.2); Sodium Level 141 mmol/L (136-145); Triglycerides 223 mg/dL; Very Low Density Lipoprotein 45 mg/dL (5-40)
[2021-10-18 22:56] LABS: Hemoglobin A1c 6.4 % (3.8-5.6)
== END 2021-10-18 23:59 | disposition short-term general hospital (02) ==
PROVIDERS: PCP Nurse Practitioner; Visit Provider Nurse Practitioner
DX: E11.42 Type 2 diabetes mellitus with diabetic polyneuropathy (principal); E11.65 Type 2 diabetes mellitus with hyperglycemia; M15.0 Primary generalized (osteo)arthritis
CPT/HCPCS: 80053; 80061; 83036; 85027

== ENCOUNTER → 2022-10-06 | Outpatient (CLI) | payer MEDICAID, SELFPAY ==
[2022-10-06 22:04] LABS: Absolute Lymphocyte Count 3.06 X10^3/uL (0.83-4.51); Absolute Neutrophil Count 4.1 X10^3/uL (2.0-7.7); Basophil# 0.05 X10^3/uL; Basophil% 0.6 % (0-1); Eosinophil# 0.36 X10^3/uL; Eosinophils% 4.3 % (0-5); Hematocrit 43.5 % (40-54); Hemoglobin 13.7 g/dL (13.0-16.5); Lymphocyte # 3.06 X10^3/ul (0.83-4.51); Mean Corp Hgb Conc 31.5 g/dL (32-36); Mean Corpuscular Hgb 29.1 pg (27.0-32.0); Mean Corpuscular Volume 92.4 fL (80-94); Mean Platelet Vol. 12.3 fl (6.2-12.0); Monocyte# 0.62 X10^3/uL; Monocyte% 7.5 % (0-10); NRBC Flagged by Analyzer 0 % (0-5); Neutrophil # 4.11 X10^3/uL (2.7-7.7); Neutrophil % 49.6 % (47-70); Platelet Count 256 K/mm3 (150-450); RBC Distribution Width CV 14.4 % (11.6-14.6); RBC Distribution Width SD 48.7 fl (35.1-43.9); Red Blood Count 4.71 M/mm3 (4.6-6.2); White Blood Count 8.3 K/mm3 (4.4-11.0)
[2022-10-06 22:35] LABS: ALB/GLOB Ratio 1.1 RATIO (0.9-2.4); AST(SGOT) 12 U/L (15-37); Alanine Aminotransfer ALT/SGPT 22 U/L (16-61); Alkaline Phosphatase 80 U/L (45-117); Anion Gap 3 (5-15); BUN 18 mg/dL (7-18); BUN/Creat Ratio 15.9 RATIO (10-20); Calcium,Total 9.3 mg/dL (8.5-10.1); Chloride 106 mmol/L (98-107); Cholesterol 121 mg/dL (200); Creatinine, Serum 1.13 mg/dL (0.70-1.30); EST Glomerular Filtration Rate 70 mL/min (>60); Est Glom Filt Rate - Afr Amer 84 mL/min (>60); Globulin 3.6 g/dL (2.2-4.2); Glucose 145 mg/dL (74-106); High Density Lipoprotein 41 mg/dL; PSA,Total - Annual Screen 0.15 ng/mL (0.00-4.00); Potassium 4.6 mmol/L (3.5-5.1); Protein, Total 7.6 g/dL (6.4-8.2); Sodium Level 139 mmol/L (136-145); Triglycerides 133 mg/dL; Very Low Density Lipoprotein 27 mg/dL (5-40)
[2022-10-06 22:37] LABS: Hemoglobin A1c 6.5 % (3.8-5.6)
== END | disposition home or self-care (01) ==
PROVIDERS: PCP Nurse Practitioner; Visit Provider Nurse Practitioner
DX: E11.65 Type 2 diabetes mellitus with hyperglycemia (principal); R35.0 Frequency of micturition; E78.5 Hyperlipidemia, unspecified
CPT/HCPCS: 84153; 80053; 80061; 83036; 85025; G0103

== ENCOUNTER → 2023-01-27 | Outpatient (CLI) | payer MEDICAID, SELFPAY | END | disposition home or self-care (01) | LOC: LABSPEC 15:53 | PROVIDERS: PCP Nurse Practitioner; Referring Provider Podiatrist; Visit Provider Podiatrist | DX: L03.031 Cellulitis of right toe (principal) | CPT/HCPCS: 87070; 87077; 87186; 87205 ==

== ENCOUNTER → 2023-07-17 | Outpatient (CLI) | payer MEDICAID, SELFPAY | END | disposition home or self-care (01) | LOC: LABSPEC 16:49 | PROVIDERS: PCP Nurse Practitioner; Visit Provider Podiatrist | DX: L97.512 Non-pressure chronic ulcer of other part of right foot with fat layer exposed (principal) | CPT/HCPCS: 87070; 87075; 87077; 87186; 87205 ==

== ENCOUNTER → 2023-10-13 | Outpatient (CLI) | payer MEDICAID, SELFPAY ==
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
[2023-10-13 21:37] LABS: Absolute Lymphocyte Count 3.22 X10^3/uL (0.83-4.51); Absolute Neutrophil Count 4.4 X10^3/uL (2.0-7.7); Basophil# 0.07 X10^3/uL; Basophil% 0.8 % (0-1); Eosinophil# 0.34 X10^3/uL; Eosinophils% 3.9 % (0-5); Hematocrit 44.2 % (40-54); Lymphocyte # 3.22 X10^3/ul (0.83-4.51); Lymphocyte % 36.7 % (19-41); Mean Corp Hgb Conc 31.7 g/dL (32-36); Mean Corpuscular Hgb 28.9 pg (27.0-32.0); Mean Corpuscular Volume 91.3 fL (80-94); Mean Platelet Vol. 12.3 fl (6.2-12.0); Monocyte# 0.65 X10^3/uL; Monocyte% 7.4 % (0-10); NRBC Flagged by Analyzer 0 % (0-5); Neutrophil # 4.44 X10^3/uL (2.7-7.7); Neutrophil % 50.5 % (47-70); Platelet Count 253 K/mm3 (150-450); RBC Distribution Width CV 14.5 % (11.6-14.6); RBC Distribution Width SD 48.5 fl (35.1-43.9); Red Blood Count 4.84 M/mm3 (4.6-6.2); White Blood Count 8.8 K/mm3 (4.4-11.0)
[2023-10-13 21:59] LABS: ALB/GLOB Ratio 0.9 RATIO (0.9-2.4); AST(SGOT) 11 U/L (15-37); Alanine Aminotransfer ALT/SGPT 23 U/L (16-61); Albumin, Serum 3.8 g/dL (3.2-5.0); Alkaline Phosphatase 83 U/L (45-117); Anion Gap 6 (5-15); BUN 21 mg/dL (7-18); BUN/Creat Ratio 15.9 RATIO (10-20); Calcium,Total 9.4 mg/dL (8.5-10.1); Chloride 107 mmol/L (98-107); Cholesterol 154 mg/dL (200); Creatinine, Serum 1.32 mg/dL (0.70-1.30); EST Glomerular Filtration Rate 58 mL/min (>60); Est Glom Filt Rate - Afr Amer 70 mL/min (>60); Globulin 4.3 g/dL (2.2-4.2); Glucose 143 mg/dL (74-106); High Density Lipoprotein 42 mg/dL; PSA,Total - Annual Screen 0.17 ng/mL (0.00-4.00); Potassium 4.1 mmol/L (3.5-5.1); Protein, Total 8.1 g/dL (6.4-8.2); Sodium Level 140 mmol/L (136-145); Triglycerides 191 mg/dL; Very Low Density Lipoprotein 38 mg/dL (5-40)
[2023-10-13 22:03] LABS: Hemoglobin A1c 5.7 % (3.8-5.6)
== END | disposition home or self-care (01) ==
LOC: LABSPEC 21:24
PROVIDERS: PCP Nurse Practitioner; Visit Provider Nurse Practitioner
DX: R35.0 Frequency of micturition (principal); E11.65 Type 2 diabetes mellitus with hyperglycemia; E78.5 Hyperlipidemia, unspecified
CPT/HCPCS: 84153; 80053; 80061; 83036; 85025; G0103

== ENCOUNTER → 2025-02-13 | Outpatient (CLI) | payer MEDICARE, MEDICAID, SELFPAY ==
[2025-02-13 22:01] LABS: Absolute Lymphocyte Count 3.82 X10^3/uL (0.83-4.51); Absolute Neutrophil Count 5.5 X10^3/uL (2.0-7.7); Basophil# 0.06 X10^3/uL; Basophil% 0.6 % (0-1); Eosinophils% 2.8 % (0-5); Hematocrit 40.3 % (40-54); Hemoglobin 12.9 g/dL (13.0-16.5); Lymphocyte # 3.82 X10^3/ul (0.83-4.51); Lymphocyte % 36.2 % (19-41); Mean Corpuscular Hgb 29.6 pg (27.0-32.0); Mean Corpuscular Volume 92.4 fL (80-94); Monocyte# 0.69 X10^3/uL; Monocyte% 6.5 % (0-10); NRBC Flagged by Analyzer 0 % (0-5); Neutrophil # 5.49 X10^3/uL (2.7-7.7); Neutrophil % 52.1 % (47-70); Platelet Count 308 K/mm3 (150-450); RBC Distribution Width SD 47.9 fl (35.1-43.9); Red Blood Count 4.36 M/mm3 (4.6-6.2); White Blood Count 10.6 K/mm3 (4.4-11.0)
[2025-02-13 22:16] LABS: ALB/GLOB Ratio 1.2 RATIO (0.9-2.4); AST(SGOT) 17 U/L (<=37); Alanine Aminotransfer ALT/SGPT 18 U/L (<=46); Albumin, Serum 4.3 g/dL (3.4-4.8); Alkaline Phosphatase 125 U/L (40-129); Anion Gap 13 (5-15); BUN 19 mg/dL (4-19); BUN/Creat Ratio 19.9 RATIO (10-20); Calcium,Total 9.7 mg/dL (7.6-11.0); Carbon Dioxide 23.8 mmol/L (21.0-32.0); Chloride 102 mmol/L (98-108); Cholesterol 95 mg/dL (<=200); Creatinine, Serum 0.93 mg/dL (0.70-1.20); EST Glomerular Filtration Rate 91 (>60); Globulin 3.5 g/dL (2.2-4.2); Glucose 275 mg/dL (70-99); High Density Lipoprotein 31 mg/dL; Low Density Lipoprotein Calc. 22 mg/dL; Protein, Total 7.8 g/dL (5.9-8.4); Sodium Level 138 mmol/L (133-145); Total Bilirubin 0.26 mg/dL (0.00-1.30); Triglycerides 209 mg/dL; Very Low Density Lipoprotein 42 mg/dL (5-40); cholesterol:hdl ratio screen 3.02
[2025-02-13 23:06] LABS: Hemoglobin A1c 7.8 % (<=5.6)
== END | disposition home or self-care (01) ==
LOC: OLS.AHF 21:49 → LABSPEC 02-14 09:41
PROVIDERS: PCP Nurse Practitioner; Referring Provider Nurse Practitioner; Visit Provider Nurse Practitioner
DX: I10 Essential (primary) hypertension (principal); E11.65 Type 2 diabetes mellitus with hyperglycemia; E78.5 Hyperlipidemia, unspecified
CPT/HCPCS: 80053; 80061; 83036; 85025